=== PATIENT | male | born 1985 | race Caucasian/White ===

== ENCOUNTER 2021-08-16 17:08 | Inpatient (IN) ==
--- NOTE | 2021-08-16 17:02 | Emergency Department Note ---
Impression & Plan Intentional overdose, Suicidal overdose, Tylenol toxicity, Elevated CK, Acute respiratory failure ED Provider Note Provider: Sonu Klein MD DATE OF SERVICE: 08/16/2021 CHIEF COMPLAINT: Overdose HISTORY OF PRESENT ILLNESS: Patient is a 36-year-old gentleman presenting from [facility] after found unresponsive this afternoon. Seen around 10 AM. Patient with some depression but no history of overdose per report. EMS reports he was unresponsive and was intubated for airway protection by them without medications. Received several doses of Versed prior to arrival for postintubation sedation. Father states he found several bottles of unclear quantity including Latuda, clonazepam, tamsulosin, hydroxyzine, Seroquel, lorazepam. Parents are unable to quantify again how much medication may have been there the exact time of the ingestion. Patient on arrival is unresponsive and unable to provide significant additional history. No trauma is reported. REVIEW OF SYSTEMS: Limited secondary to patient's mental status from intubation PAST MEDICAL HISTORY: As noted above MEDICATIONS: Reviewed available medication list SOCIAL HISTORY: Has been residing at home with parents PHYSICAL EXAM: GENERAL: Patient intubated being bagged upon arrival by EMS Head: normocephalic and atraumatic EYES: No injection, discharge or icterus. Eyes are 3 mm bilaterally. Initially some disconjugate gaze noted. NECK: Trachea midline. Supple. ENT: Mucous membranes pink and moist. LUNGS: Airway patent. No retractions. Breath sounds clear HEART: Regular rate and rhythm. No chest wall tenderness ABDOMEN: Soft and non-tender, without guarding or rebound. SKIN: Acyanotic, warm, dry, without rashes EXTREMITIES: Without swelling, tenderness or deformity NEUROLOGICAL: Patient occasionally moves bilateral upper extremities but no significant withdrawal to pain. Occasional cough. No response to verbal stimuli or painful stimuli otherwise. EK bpm normal sinus rhythm. No PVC or PAC. QTc 390. No ST segment elevation noted. CONTINUOUS CARDIAC MONITORING: was ordered and showed a heart rate of 60s-80s bpm in normal sinus rhythm Differential includes Mood disorder, infection, hypoglycemia, electrolyte abnormalities, cardiac sources, intracerebral event, toxicologic, trauma, neurologic, as well as other pathologies. IMPRESSION/MEDICAL DECISION MAKING: Patient with what sounds like an intentional polypharmacy overdose. Discussed with Poison Control Center. Supportive care and abated prior to arrival. Minimal respiratory settings. Chest x-ray noted and ET tube pulled back 1 cm. Propofol for sedation at this point. Maintained on propofol drip. Tox labs were sent. EKG without significant interval abnormalities noted. CT of the head completed given his altered mental status without significant findings per radiology. Family updated at bedside. Will need psych services when through the acute medical. But will require ICU care and supportive care for the overdose until his sensorium clears. Tylenol significantly elevated and given the unclear time of ingestion Acetadote ordered. Negative salicylate level and lithium level. Alcohol level not elevated. CK mildly elevated. Given IV fluids. No evidence of LFT abnormality. Updated family. Requires admission. Did fill out a 302 form. DIAGNOSIS: Intentional overdose, acute respiratory failure, Tylenol overdose, altered mental status DISPOSITION: Hospitalist will evaluate Critical Care I have personally spent 46 minutes of critical care time in the direct manageme nt of this patient. This includes bedside care, interpretation of diagnostic studies, and testing, discussion with consultants, patient, and family members, and other required patient management activities. These 46 minutes is in excess of all separately billable procedures. 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 Required: No Beliefs That Will Affect Care: None marital status: Single Current Living Situation: Family Current Living Situation Comment: Lives with Parents Feels Safe at Home: Yes Assistive Devices: Contacts Allergies Allergies Allergy/AdvReac Type Severity Reaction Status Date / Time No Known Drug Allergies AdvReac Verified 09/06/20 11:33 Home Meds Home Medications Medication Instructions Recorded Confirmed clonazepam 1 mg tablet 1 mg PO DIRECTED 08/16/21 08/16/21 hydroxyzine pamoate 25 mg capsule 25 mg PO DIRECTED 08/16/21 08/16/21 lurasidone 40 mg tablet (Latuda) 40 mg PO DAILY 08/16/21 08/16/21 quetiapine 100 mg tablet 100 - 150 mg PO DIRECTED 08/16/21 08/16/21 tamsulosin 0.4 mg capsule 0.4 mg PO DAILY 08/16/21 08/16/21 Results & Data (ED) Vital Signs Vital Signs - 24 hr 08/16/21 17:14 08/16/21 17:20 08/16/21 17:45 Temperature 36.0 C L Temperature Source Axillary Pulse Rate 78 70 Pulse Rate [Apical] 67 Pulse Rhythm [Apical] Regular Respiratory Rate 24 20 20 Blood Pressure 135/66 Blood Pressure [Right Arm] 102/49 L Blood Pressure Mean 89 Blood Pressure Mean [Right Arm] 66 Blood Pressure Position [Right Arm] Lying Pulse Oximetry 100 100 100 Oxygen Delivery Method Mechanical Vent Mechanical Vent Fraction of Inspired Oxygen 40 40 30 SaO2/FiO2 Ratio 250 333 Sepsis Recent Fever Within 48 Hours No Sepsis New/Unexplained Change in Mental Status No Sepsis Action Taken by Nursing No Action Required End-Tidal CO2 38 End Tidal CO2 (18-54mmHg) 35 08/16/21 17:55 Temperature Temperature Source Pulse Rate Pulse Rate [Apical] Pulse Rhythm [Apical] Respiratory Rate Blood Pressure Blood Pressure [Right Arm] Blood Pressure Mean Blood Pressure Mean [Right Arm] Blood Pressure Position [Right Arm] Pulse Oximetry Oxygen Delivery Method Fraction of Inspired Oxygen 30 SaO2/FiO2 Ratio Sepsis Recent Fever Within 48 Hours Sepsis New/Unexplained Change in Mental Status Sepsis Action Taken by Nursing End-Tidal CO2 End Tidal CO2 (18-54mmHg) Laboratory Data Result diagrams: 08/16/21 17:17 08/16/21 17:17 Lab Results 08/16/21 08/16/21 08/16/21 Range/Units 17:17 17:17 17:17 WBC 9.86 (4.8-10.8) K/uL RBC 4.55 L (4.7-6.1) M/uL Hgb 13.3 L (14.0-18.0) g/dL Hct 38.3 L (42-52) % MCV 84.2 (80-100) fL MCH 29.2 (25-34) pg MCHC 34.7 (32-36) g/dL RDW Std Deviation 39.3 (36.4-46.3) fL RDW Coeff of Esthela 12.9 (11.5-14.5) % Plt Count 208 (130-400) K/uL MPV 10.3 (7.4-10.4) fL Immature Gran % (Auto) 0.4 % Neut % (Auto) 82.9 % Lymph % (Auto) 9.0 % [place] % (Auto) 7.6 % Eos % (Auto) 0.0 % Baso % (Auto) 0.1 % Neut # (Auto) 8.17 H (1.4-6.5) K/uL Lymph # (Auto) 0.89 L (1.2-3.4) K/uL [place] # (Auto) 0.75 H (0.11-0.59) K/uL Eos # (Auto) 0.00 (0-0.5) K/uL Baso # (Auto) 0.01 (0-0.2) K/uL Immature Gran # (Auto) 0.04 H (0.00-0.02) K/uL PT 12.4 H (9.0-12.0) Seconds INR 1.2 H (0.9-1.1) Sodium (136-145) mmol/L Potassium (3.5-5.1) mmol/L Chloride (98-107) mmol/L Carbon Dioxide (21-32) mmol/L Anion Gap (3-11) BUN (6-23) mg/dl Creatinine (0.6-1.4) mg/dl Est Cr Clr Drug Dosing ml/min Est GFR ( Amer) ml/min Est GFR (Non-Af Amer) ml/min BUN/Creatinine Ratio (10-20) Glucose (70-99(Fasting)) mg/dl Calcium (8.5-10.1) mg/dl Magnesium (1.7-2.4) mg/dl Total Bilirubin (0.2-1.0) mg/dl AST (13-39) U/L ALT (7-52) U/L Alkaline Phosphatase (34-104) U/L Total Creatine Kinase (30-223) U/L Troponin I High Sens 11.6 (0-20) pg/ml Total Protein (6.0-8.3) gm/dl Albumin (3.4-5.0) gm/dl Globulin (2.5-4.0) gm/dl Albumin/Globulin Ratio (0.9-2) Lipase (11-82) U/L Urine Color Urine Appearance (Clear) Urine pH (4.5-7.5) Ur Specific [place] (1.000-1.030) Urine Protein (Negative) Urine Glucose (UA) (Negative) Urine Ketones (Negative) Urine Blood (Negative) Urine Nitrite (Negative) Urine Bilirubin (Negative) Urine Urobilinogen (Negative) Ur Leukocyte Esterase (Negative) Urine WBC (Auto) (0-5) /hpf Urine RBC (Auto) (0-4) /hpf U Hyaline Cast (Auto) (0-5) /lpf U Epithel Cells (Auto) (0-5) /lpf Urine Bacteria (Auto) (Negative) Salicylates (3.0-30) mg/dl Urine Opiates Screen (Neg) Ur Methadone, Qual (Neg) Acetaminophen (10-30) ug/ml Urine Barbiturates (Neg) Ur Phencyclidine (PCP) (Neg) U Amphetamin/Meth Scrn (Neg) MDMA (Ecstasy) Screen (Neg) U Benzodiazepines Scrn (Neg) Bells (0.6-1.2) mmol/L Ur Cocaine Metabolite (Neg) U Marijuana (THC) Screen (Neg) Ethyl Alcohol mg/dL (<10.0) mg/dl SARS-CoV-2, RNA, NAAT (NEGATIVE) 08/16/21 08/16/21 08/16/21 Range/Units 17:17 17:17 17:27 WBC (4.8-10.8) K/uL RBC (4.7-6.1) M/uL Hgb (14.0-18.0) g/dL Hct (42-52) % MCV (80-100) fL MCH (25-34) pg MCHC (32-36) g/dL RDW Std Deviation (36.4-46.3) fL RDW Coeff of Esthela (11.5-14.5) % Plt Count (130-400) K/uL MPV (7.4-10.4) fL Immature Gran % (Auto) % Neut % (Auto) % Lymph % (Auto) % [place] % (Auto) % Eos % (Auto) % Baso % (Auto) % Neut # (Auto) (1.4-6.5) K/uL Lymph # (Auto) (1.2-3.4) K/uL [place] # (Auto) (0.11-0.59) K/uL Eos # (Auto) (0-0.5) K/uL Baso # (Auto) (0-0.2) K/uL Immature Gran # (Auto) (0.00-0.02) K/uL PT (9.0-12.0) Seconds INR (0.9-1.1) Sodium 134 L (136-145) mmol/L Potassium 3.5 (3.5-5.1) mmol/L Chloride 105 (98-107) mmol/L Carbon Dioxide 21 (21-32) mmol/L Anion Gap 8 (3-11) BUN 19 (6-23) mg/dl Creatinine 0.95 (0.6-1.4) mg/dl Est Cr Clr Drug Dosing 100.5 ml/min Est GFR ( Amer) 118.9 ml/min Est GFR (Non-Af Amer) 102.6 ml/min BUN/Creatinine Ratio 20.0 (10-20) Glucose 125 H (70-99(Fasting)) mg/dl Calcium 8.1 L (8.5-10.1) mg/dl Magnesium 1.9 (1.7-2.4) mg/dl Total Bilirubin 0.7 (0.2-1.0) mg/dl AST 14 (13-39) U/L ALT 14 (7-52) U/L Alkaline Phosphatase 35 (34-104) U/L Total Creatine Kinase 674 H (30-223) U/L Troponin I High Sens (0-20) pg/ml Total Protein 5.4 L (6.0-8.3) gm/dl Albumin 3.6 (3.4-5.0) gm/dl Globulin 1.8 L (2.5-4.0) gm/dl Albumin/Globulin Ratio 2.0 (0.9-2) Lipase 10 L (11-82) U/L Urine Color Yellow Urine Appearance Cloudy A (Clear) Urine pH 6.0 (4.5-7.5) Ur Specific [place] 1.024 (1.000-1.030) Urine Protein Trace H (Negative) Urine Glucose (UA) Negative (Negative) Urine Ketones 2+ H (Negative) Urine Blood Negative (Negative) Urine Nitrite Negative (Negative) Urine Bilirubin Negative (Negative) Urine Urobilinogen Negative (Negative) Ur Leukocyte Esterase Negative (Negative) Urine WBC (Auto) 1-5 (0-5) /hpf Urine RBC (Auto) 0-4 (0-4) /hpf U Hyaline Cast (Auto) 1-5 (0-5) /lpf U Epithel Cells (Auto) 10-20 H (0-5) /lpf Urine Bacteria (Auto) Negative (Negative) Salicylates < 3.0 L (3.0-30) mg/dl Urine Opiates Screen (Neg) Ur Methadone, Qual (Neg) Acetaminophen 159 H* (10-30) ug/ml Urine Barbiturates (Neg) Ur Phencyclidine (PCP) (Neg) U Amphetamin/Meth Scrn (Neg) MDMA (Ecstasy) Screen (Neg) U Benzodiazepines Scrn (Neg) Bells < 0.1 L (0.6-1.2) mmol/L Ur Cocaine Metabolite (Neg) U Marijuana (THC) Screen (Neg) Ethyl Alcohol mg/dL (<10.0) mg/dl SARS-CoV-2, RNA, NAAT (NEGATIVE) 08/16/21 08/16/21 08/16/21 Range/Units 17:27 17:29 17:30 WBC (4.8-10.8) K/uL RBC (4.7-6.1) M/uL Hgb (14.0-18.0) g/dL Hct (42-52) % MCV (80-100) fL MCH (25-34) pg MCHC (32-36) g/dL RDW Std Deviation (36.4-46.3) fL RDW Coeff of Esthela (11.5-14.5) % Plt Count (130-400) K/uL MPV (7.4-10.4) fL Immature Gran % (Auto) % Neut % (Auto) % Lymph % (Auto) % [place] % (Auto) % Eos % (Auto) % Baso % (Auto) % Neut # (Auto) (1.4-6.5) K/uL Lymph # (Auto) (1.2-3.4) K/uL [place] # (Auto) (0.11-0.59) K/uL Eos # (Auto) (0-0.5) K/uL Baso # (Auto) (0-0.2) K/uL Immature Gran # (Auto) (0.00-0.02) K/uL PT (9.0-12.0) Seconds INR (0.9-1.1) Sodium (136-145) mmol/L Potassium (3.5-5.1) mmol/L Chloride (98-107) mmol/L Carbon Dioxide (21-32) mmol/L Anion Gap (3-11) BUN (6-23) mg/dl Creatinine (0.6-1.4) mg/dl Est Cr Clr Drug Dosing ml/min Est GFR ( Amer) ml/min Est GFR (Non-Af Amer) ml/min BUN/Creatinine Ratio (10-20) Glucose (70-99(Fasting)) mg/dl Calcium (8.5-10.1) mg/dl Magnesium (1.7-2.4) mg/dl Total Bilirubin (0.2-1.0) mg/dl AST (13-39) U/L ALT (7-52) U/L Alkaline Phosphatase (34-104) U/L Total Creatine Kinase (30-223) U/L Troponin I High Sens (0-20) pg/ml Total Protein (6.0-8.3) gm/dl Albumin (3.4-5.0) gm/dl Globulin (2.5-4.0) gm/dl Albumin/Globulin Ratio (0.9-2) Lipase (11-82) U/L Urine Color Urine Appearance (Clear) Urine pH (4.5-7.5) Ur Specific [place] (1.000-1.030) Urine Protein (Negative) Urine Glucose (UA) (Negative) Urine Ketones (Negative) Urine Blood (Negative) Urine Nitrite (Negative) Urine Bilirubin (Negative) Urine Urobilinogen (Negative) Ur Leukocyte Esterase (Negative) Urine WBC (Auto) (0-5) /hpf Urine RBC (Auto) (0-4) /hpf U Hyaline Cast (Auto) (0-5) /lpf U Epithel Cells (Auto) (0-5) /lpf Urine Bacteria (Auto) (Negative) Salicylates (3.0-30) mg/dl Urine Opiates Screen Neg (Neg) Ur Methadone, Qual Neg (Neg) Acetaminophen (10-30) ug/ml Urine Barbiturates Neg (Neg) Ur Phencyclidine (PCP) Neg (Neg) U Amphetamin/Meth Scrn Neg (Neg) MDMA (Ecstasy) Screen Neg (Neg) U Benzodiazepines Scrn Pos H (Neg) Bells (0.6-1.2) mmol/L Ur Cocaine Metabolite Neg (Neg) U Marijuana (THC) Screen Neg (Neg) Ethyl Alcohol mg/dL < 10.0 (<10.0) mg/dl SARS-CoV-2, RNA, NAAT NEGATIVE (NEGATIVE) Administered Medications Enoxaparin Sodium (Enoxaparin Inj 40 Mg/0.4 Ml Syr) 40 mg SQ Q24H LACY Stop: 09/15/21 21:59 Last Admin: 08/16/21 21:17 Dose: 40 mg Documented by: [id number] Propofol (Diprivan) 1,000 mg in 100 mls @ 4.476 mls/hr IV .[id number] [facility]; Prot ocol Stop: 08/19/21 17:14 Last Titration: 08/16/21 18:42 Dose: 10 mcg/kg/min, 4.5 mls/hr Documented by: [id number] Admin: 08/16/21 17:15 Dose: 20 mcg/kg/min, 9 mls/hr Documented by: [id number] Cosigned by: [id number] Acetylcysteine 3,700 mg/ (Dextrose) 518.5 mls @ 125 mls/hr IV ONCE ONE Stop: 08/16/21 23:18 Last Admin: 08/16/21 19:45 Dose: 125 mls/hr Documented by: [id number] Ampicillin Sodium/Sulbactam Sodium 3,000 mg/ Sodium Chloride 108 mls @ 200 mls/hr IV Q6H [facility]; Protocol Stop: 08/23/21 19:42 Last Infusion: 08/16/21 21:31 Dose: 0 mls/hr Documented by: [id number] Admin: 08/16/21 20:46 Dose: 200 mls/hr Documented by: [id number] Potassium Chloride/Sodium Chloride (Normal Saline W/20 Meq Kcl) 20 meq in 1,000 mls @ 110 mls/hr IV .Q9H6M [facility]; Protocol Stop: 09/15/21 19:42 Last Admin: 08/16/21 20:46 Dose: 110 mls/hr Documented by: [id number] Propofol (Propofol Bolus From Bag) 20 mg IV Q5M PRN PRN Reason: Sedation Stop: 08/19/21 16:52 Last Admin: 08/16/21 17:15 Dose: 20 mg Documented by: [id number] Cosigned by: [id number] Discontinued Medications Acetylcysteine (Acetylcysteine Iv 21 Hr Regimen (>40kg)) 1 ea IV NOW STA; Protocol Stop: 08/16/21 18:11 Last Admin: 08/16/21 20:41 Dose: Not Given Documented by: [id number] Acetylcysteine 11,100 mg/ (Dextrose) 255.5 mls @ 200 mls/hr IV ONCE ONE Stop: 08/16/21 19:26 Last Infusion: 08/16/21 19:55 Dose: 0 mls/hr Documented by: [id number] Admin: 08/16/21 18:40 Dose: 200 mls/hr Documented by: [id number] Sodium Chloride (Nss 1000ml) 1,000 mls @ 999 mls/hr IV .Q1H1M ONE Stop: 08/16/21 19:11 Last Infusion: 08/16/21 19:56 Dose: 0 mls/hr Documented by: [id number] Admin: 08/16/21 18:47 Dose: 999 mls/hr Documented by: [id number] Miscellaneous (Stat Iv Infusion Titration Per Protocol) 1 ea N/A NOW STA Stop: 08/16/21 16:54 Last Admin: 08/16/21 19:57 Dose: Not Given Documented by: [id number] Propofol (Propofol Iv Emulsion 10 Mg/Ml 100 Ml Vial) Confirm Administered Dose 1,000 mg IV .STK-MED ONE Stop: 08/16/21 17:01 Last Admin: 08/16/21 19:58 Dose: Not Given Documented by: [id number] Imaging Data Radiologist's Impression: Chest X-Ray 08/16/21 16:53 XR chest 1V portable HISTORY: intubated COMPARISON: None. FINDINGS: The endotracheal tube terminates 1 cm from the [place]aak. Nasogastric tube is curled within the hypopharynx and terminates within the expected locati on of the proximal esophagus. There are low lung volumes. No pneumothorax. No evidence for pulmonary edema. The cardiac silhouette is top normal in size. There are patchy bibasilar densities. IMPRESSION: 1. Endotracheal tube terminates 1 cm from the isaak. This should be pulled back by approximately 1 to 2 cm. 2. Nasogastric tube is curled within the hypopharynx with the tip terminating at the proximal esophagus. This should be removed/reposition. 3. Patchy bibasilar densities may represent atelectasis or aspiration pneumonia. ACT 112: Negative or not required by law. Electronically signed by: Devan Rivers M.D. 08/16/2021 5:[address] 08/16/21 16:[address] DOSE: 537.48 mGy.cm HISTORY: Overdose. Intubation. TECHNIQUE: Multiaxial CT images of the head were performed without the use of intravenous contrast. Automated exposure control was utilized for this study. A dose lowering technique was utilized adhering to the principles of ALARA. Comparison: None. Findings: The paranasal sinuses and mastoid air cells are clear. The calvarium and skull base are intact. The ventricles and sulci are within normal limits. There is no mass, hematoma, midline shift, or acute infarct. Impression: No acute intracranial abnormality. ACT 112: Negative or not required by law. Electronically signed by: Devan Rivers M.D. 08/16/2021 5:56 PM Discharge Plan Visit Data Chief Complaint: Overdose (Intentional) Stated Complaint: OVERDOSE, SUICIDAL, INTUBATED ED Provider: Sonu Klein Discharge Problem: Intentional overdose, Suicidal overdose, Tylenol toxicity, Elevated CK, Acute respiratory failure Patient Disposition: Being Evaluated by Hospitalist Discharge Instructions Interventions: ED Discharge Assessment Last Done: 08/16/21 19:28
[~2021-08-16 17:08] MED LIST: PROPOFOL BOLUS FROM BAG IV PRN; PROPOFOL IV EMULSION 10 MG/ML 100 ML VIAL IV ONE; STAT IV Infusion **Titration per Protocol STA
[2021-08-16] MEDS: propofoL 1,000 MG/100 ML VIAL IV SCH (17:15)
[2021-08-16 17:32] LABS: Basophils # (auto) 0.01 K/uL (0-0.2); Basophils % (auto) 0.1 %; Hematocrit (blood only) 38.3 % (42-52); Hemoglobin 13.3 g/dL (14.0-18.0); Immature Granulocytes # (auto) 0.04 K/uL (0.00-0.02); Immature Granulocytes % (auto) 0.4 %; Lymphocytes # (auto) 0.89 K/uL (1.2-3.4); Mean Corpuscular Hemoglobin 29.2 pg (25-34); Mean Corpuscular Hgb Conc 34.7 g/dL (32-36); Mean Corpuscular Volume 84.2 fL (80-100); Mean Platelet Volume 10.3 fL (7.4-10.4); Monocytes # (auto) 0.75 K/uL (0.11-0.59); Monocytes % (auto) 7.6 %; Neutrophils # (auto) 8.17 K/uL (1.4-6.5); Neutrophils % (auto) 82.9 %; Platelet Count 208 K/uL (130-400); RDW Coefficient of Variation 12.9 % (11.5-14.5); RDW Standard Deviation 39.3 fL (36.4-46.3); Red Blood Count 4.55 M/uL (4.7-6.1); White Blood Count 9.86 K/uL (4.8-10.8)
[2021-08-16 17:44] LABS: Appearance Urine Cloudy (Clear); Bacteria Urine Automated Negative (Negative); Bilirubin Urine Negative (Negative); Blood Urine Negative (Negative); Color Urine Yellow; Glucose Urine UA Negative (Negative); Ketones Urine 2+ (Negative); Leukocyte Esterase Urine Negative (Negative); Nitrite Urine Negative (Negative); Protein Urine Trace (Negative); RBC Urine Automated 0-4 /hpf (0-4); Specific Gravity Urine 1.024 (1.000-1.030); Urobilinogen Urine Negative (Negative)
[2021-08-16 17:45] LABS: INR 1.2 (0.9-1.1); Prothrombin Time 12.4 Seconds (9.0-12.0)
--- NOTE | 2021-08-16 17:55 | XRay Report ---
XR chest 1V portable HISTORY: intubated COMPARISON: None. FINDINGS: The endotracheal tube terminates 1 cm from the [place]aak. Nasogastric tube is curled within th e hypopharynx and terminates within the expected location of the proximal esophagus. There are low marina ng volumes. No pneumothorax. No evidence for pulmonary edema. The cardiac silhouette is top normal in size. There are patchy bibasilar densities. IMPRESSION: 1. Endotracheal tube terminates 1 cm from the isaak. This should be pulled back by approximately 1 t o 2 cm. 2. Nasogastric tube is curled within the hypopharynx with the tip terminating at the proximal esophag us. This should be removed/reposition. 3. Patchy bibasilar densities may represent atelectasis or aspiration pneumonia. ACT 112: Negative or not required by law. Electronically signed by: Devan Rivers M.D. 08/16/2021 5:54 PM
--- NOTE | 2021-08-16 17:58 | CT Scan Report ---
HEAD CT NONCONTRAST CT DOSE: 537.48 mGy.cm HISTORY: Overdose. Intubation. TECHNIQUE: Multiaxial CT images of the head were performed without the use of intravenous contrast. A utomated exposure control was utilized for this study. A dose lowering technique was utilized adheri ng to the principles of ALARA. Comparison: None. Findings: The paranasal sinuses and mastoid air cells are clear. The calvarium and skull base are int act. The ventricles and sulci are within normal limits. There is no mass, hematoma, midline shift, or acute infarct. Impression: No acute intracranial abnormality. ACT 112: Negative or not required by law. Electronically signed by: Devan Rivers M.D. 08/16/2021 5:56 PM
[2021-08-16 18:09] LABS: Acetaminophen 159 ug/ml (10-30); Albumin Level 3.6 gm/dl (3.4-5.0); Bilirubin,Total 0.7 mg/dl (0.2-1.0); Calcium 8.1 mg/dl (8.5-10.1); Creatinine Clr Calc Pharmacy 100.5 ml/min; Est GFR (African American) 118.9 ml/min; Est GFR (Non-African American) 102.6 ml/min; Globulin 1.8 gm/dl (2.5-4.0); Lithium < 0.1 mmol/L (0.6-1.2); Magnesium 1.9 mg/dl (1.7-2.4); Potassium 3.5 mmol/L (3.5-5.1); Salicylate < 3.0 mg/dl (3.0-30); Total Protein 5.4 gm/dl (6.0-8.3)
[2021-08-16] MEDS ORDERED: AcetylCYSTEINE IV 21 HR REGIMEN (>40KG) IV STA (18:10)
[2021-08-16] MEDS ORDERED: ACETYLCYSTEINE IV ONE ×3 (18:10→23:10)
[2021-08-16] MEDS ORDERED: DEXTROSE 5% IV ONE ×3 (18:10→23:10)
[2021-08-16] MEDS ORDERED: SODIUM CHLORIDE 0.9% 1000ML 1,000 ML IV ONE (18:11)
[2021-08-16 18:22] LABS: Amphetamines+Metham, Urine Neg (Neg); Barbiturates, Urine Neg (Neg); Cocaine, Urine Neg (Neg); MDMA (Ecstacy), Urine Neg (Neg); Methadone, Urine Neg (Neg); Opiate, Urine Neg (Neg); Phencyclidine, Urine Neg (Neg)
[2021-08-16 19:24] LABS: Benzodiazepine, Urine Pos (Neg)
--- NOTE | 2021-08-16 19:30 | History & Physical Report ---
Date of Service August 16, 2021 Assessment & Plan (1) Admitted to intensive care unit: (2) Acute respiratory failure: (3) On mechanically assisted ventilation: (4) Intentional overdose: (5) Suicidal overdose: (6) Tylenol toxicity: (7) Elevated CK: Plan: This is a 36-year-old male who has significant past medical history of depression, anxiety and anuja who presents to ED after sustaining what appears to be an intentional overdose on multiple prescription medications prior to arrival. Patient is currently sedated and mechanical intubated from suspected polypharmacy overdose and active suicide attempt. Unknown exact quantity of medications ingested and specifics; however pills noted at bedside were Latuda, clonazepam, tamsulosin, hydroxyzine, Seroquel and lorazepam. Initial urine drug tox negative. Salicylate level WNL, acetaminophen level elevated at 159. Benzodiazepine currently pending Admitted to intensive care unit Acute respiratory failure on mechanical assisted ventilation secondary to overdose Polypharmacy overdose Tylenol toxicity Elevated CK Possible Aspiration PNA Admit to ICU Consult mis specialist Discussed case with poison control * Recommends initiating N-acetylcysteine 21-hour protocol at 1, 4-hour and a 16- hour * Recommend repeating LFT, coags and Tylenol level 12 hours into the 16-hour bag * Poison control will call to follow-up * Further recommended EKGs every 6 hours due to likely ingestion of antips ychotics * If EKG reveals QRS greater than 120 treat with sodium bicarb; if QTC greater than 500 MS recommend treating with magnesium sulfate 2 g IV, recommend keeping mag greater than 2 and K > 4.5 IVF + KCL 20meq suicide, fall and asp precautions Psych consulted; however eval will be depending when patient extubated IV Unasyn for possible aspiration PNA NPO obtain ABG DVT ppx: SQ Lovenox Dispo: ICU, pt will need psych evaluation and likely inpt tx FULL CODE PCP: Yanely Navarrete MD Pt was seen and examined in collaboration with Dr. Posey, please see addendum Mother and Father present at bedside and agree with above History of Present Illness Chief Complaint: Overdose on multiple pills prior to arrival. Primary Care Provider: Yanely Navarrete MD This is a 36-year-old male who has significant past medical history of depression, anxiety and anuja who presents to ED after sustaining what appears to be an intentional overdose on multiple prescription medications prior to arrival. Patient's mother and father are at bedside and provides most of history. History also obtained from prehospital personnel and ED provider. Patient has been living with his parents for the past 2 years, since COVID hit. They states he has suffered with depression and anxiety for several years dating back to when he lost his job back in [place] about 6 years ago. About 10 days ago he recently moved out to [place] to start a summer job. He called his parents stating that he was not doing well from a depression standpoint and therefore they went out to [place] to see him. Apparently he was hospitalized at [facility] for 2 days as he admitted himself due to worsening depression. According to report patient signed him out AMA and family brought him back here. This morning patient was scheduled to see a psychiatrist. His father noted him to be sleeping. He states, "he never sleeps so I did let him sleep for a while, but I now know that was the wrong decision." Somewhere between 10 AM and 12 PM patient is thought to have taken multiple prescription prescription medications as they were found at bedside. It is unclear quantity and specifics but the bottles noted were Latuda, clonazepam, tamsulosin, hydroxyzine, Seroquel and lorazepam. Patient was unresponsive and was intubated in the field. In ED he remained hemodynamically stable, sedated and on mechanical ventilation. Drug tox screen was negative, salicylates less than 3.0, acetaminophen high at 159. His benzodiazepine screen is still pending. Poison control was contacted. Allergies Allergy/AdvReac Type Severity Reaction Status Date / Time No Known Drug Allergies AdvReac Verified 09/06/20 11:33 Home Medications Medication Instructions Recorded Confirmed Type clonazepam 1 mg tablet 1 mg PO DIRECTED 08/16/21 08/16/21 History hydroxyzine pamoate 25 mg capsule 25 mg PO DIRECTED 08/16/21 08/16/21 History lurasidone 40 mg tablet (Latuda) 40 mg PO DAILY 08/16/21 08/16/21 History quetiapine 100 mg tablet 100 - 150 mg PO DIRECTED 08/16/21 08/16/21 History tamsulosin 0.4 mg capsule 0.4 mg PO DAILY 08/16/21 08/16/21 History Past Med/Surg History Medical History (Updated 08/16/21 @ 19:17 by Susan Roberto PA-C) Anxiety Depression Frequent urination Tingling of right upper extremity when sleeping to have MRI Whiplash 10/2019 fell from ladder Surgical History History of hernia surgery Family History (Updated 08/16/21 @ 19:12 by Susan Roberto PA-C) Sister Depression Social History (Updated 08/16/21 @ 19:13 by Susan Roberto PA-C) Smoking Status: Never smoker Hx Alcohol Use: Yes Alcohol Intake Frequency: Monthly or Less Alcohol Intake Frequency Comment: occassional per family Hx Substance Use: No Preferred Language: Qatari Communication Ability: Unable Ships Equipment Engineer Required: No Beliefs That Will Affect Care: None marital status: Single Current Living Situation: Family Current Living Situation Comment: Lives with Parents Feels Safe at Home: Yes Assistive Devices: Contacts Review of Systems Review of Systems: All systems reviewed & are unremarkable except as noted in HPI & below Physical Exam Physical Exam: Constitutional: WD/WN, vitals as above, NAD, lying in bed, unresponsive, intubated Head: Normocephalic, Atraumatic Eyes: PERRL, conjunctivae normal, anicteric sclerae ENMT: external ear and nose normal, +ET Tube Neck: trachea midline, normal visual inspection Respiratory: normal respiratory effort, B/L rhonchi noted R> L, + Intubated with mechanical ventilation Cardiovascular: bradycardiac rate, regular rhythm, no edema Vessels: no JVD or carotid bruit Chest: normal inspection of chest Abdomen: normal bowel sounds, soft, nontender, no hepatosplenomegaly Musculoskeletal: no cyanosis or clubbing, unable to assess given unresponsive Skin: no rashes, warm and dry normal turgor Neurologic: unable to assess due to unresponsive Psychiatric: unable to assess due to unresponsive : +reynoso cath with yellow urine Results & Data Results & Data ([facility]) Vital Signs (Past 12 Hours) Vital Signs Temp Pulse Pulse Resp BP BP Pulse Ox 08/16/21 19:00 55 L 20 94/54 L 99 08/16/21 18:30 61 20 86/44 L 100 08/16/21 17:45 67 20 102/49 L 100 05/26/22 17:20 36.0 C L 70 20 135/66 100 08/16/21 17:14 78 24 100 Diagnostic Findings Chest X-Ray 08/16/21 16:53 XR chest 1V portable HISTORY: intubated COMPARISON: None. FINDINGS: The endotracheal tube terminates 1 cm from the isaak. Nasogastric tube is curled within the hypopharynx and terminates within the expected location of the proximal esophagus. There are low lung volumes. No pneumothorax. No evidence for pulmonary edema. The cardiac silhouette is top normal in size. There are patchy bibasilar densities. IMPRESSION: 1. Endotracheal tube terminates 1 cm from the isaak. This should be pulled back by approximately 1 to 2 cm. 2. Nasogastric tube is curled within the hypopharynx with the tip terminating at the proximal esophagus. This should be removed/reposition. 3. Patchy bibasilar densities may represent atelectasis or aspiration pneumonia. ACT 112: Negative or not required by law. Electronically signed by: Devan Rivers M.D. 08/16/2021 5:[address] 08/16/21 16:[address] DOSE: 537.48 mGy.cm HISTORY: Overdose. Intubation. TECHNIQUE: Multiaxial CT images of the head were performed without the use of intravenous contrast. Automated exposure control was utilized for this study. A dose lowering technique was utilized adhering to the principles of ALARA. Comparison: None. Findings: The paranasal sinuses and mastoid air cells are clear. The calvarium and skull base are intact. The ventricles and sulci are within normal limits. There is no mass, hematoma, midline shift, or acute infarct. Impression: No acute intracranial abnormality. ACT 112: Negative or not required by law. Electronically signed by: Devan Rivers M.D. 08/16/2021 5:56 PM Medications Administered Medication List Propofol (Diprivan) 1,000 mg in 100 mls @ 8.952 mls/hr IV .[id number] [facility]; Protocol Stop: 08/19/21 17:14 Last Titration: 08/16/21 18:42 Dose: 10 mcg/kg/min, 4.5 mls/hr Documented by: [id number] Admin: 08/16/21 17:15 Dose: 20 mcg/kg/min, 9 mls/hr Documented by: [id number] Cosigned by: [id number] Acetylcysteine 11,100 mg/ (Dextrose) 255.5 mls @ 200 mls/hr IV ONCE ONE Stop: 08/16/21 19:26 Last Admin: 08/16/21 18:40 Dose: 200 mls/hr Documented by: [id number] Propofol (Propofol Bolus From Bag) 20 mg IV Q5M PRN PRN Reason: Sedation Stop: 08/19/21 16:52 Last Admin: 08/16/21 17:15 Dose: 20 mg Documented by: [id number] Cosigned by: [id number] Discontinued Medications Sodium Chloride (Nss 1000ml) 1,000 mls @ 999 mls/hr IV .Q1H1M ONE Stop: 08/16/21 19:11 Last Admin: 08/16/21 18:47 Dose: 999 mls/hr Documented by: [id number] ECG Rate (beats per minute): 81 Rhythm: normal sinus COVID-19 Results Results COVID-19 Adm Lab Results: RBC 4.55 M/uL (4.7-6.1) L 08/16/21 WBC 9.86 K/uL (4.8-10.8) 08/16/21 Hgb 13.3 g/dL (14.0-18.0) L 08/16/21 Hct 38.3 % (42-52) L 08/16/21 Plt Count 208 K/uL (130-400) 08/16/21 Neutrophils (%) (Auto) 82.9 % 08/16/21 Lymphocytes (%) (Auto) 9.0 % 08/16/21 Monocytes # (Auto) 0.75 K/uL (0.11-0.59) H 08/16/21 Eosinophils # (Auto) 0.00 K/uL (0-0.5) 08/16/21 Immature Granulocyte % (Auto) 0.4 % 08/16/21 Neutrophils # (Auto) 8.17 K/uL (1.4-6.5) H 08/16/21 Lymphocytes # (Auto) 0.89 K/uL (1.2-3.4) L 08/16/21 Monocytes # (Auto) 0.75 K/uL (0.11-0.59) H 08/16/21 Eosinophils # (Auto) 0.00 K/uL (0-0.5) 08/16/21 Basophils # (Auto) 0.01 K/uL (0-0.2) 08/16/21 Immature Granulocyte # (Auto) 0.04 K/uL (0.00-0.02) H 08/16/21 Na 134 mmol/L (136-145) L 08/16/21 K 3.5 mmol/L (3.5-5.1) 08/16/21 Cl 105 mmol/L (98-107) 08/16/21 CO2 21 mmol/L (21-32) 08/16/21 Anion Gap 8 (3-11) 08/16/21 BUN 19 mg/dl (6-23) 08/16/21 Creatinine 0.95 mg/dl (0.6-1.4) 08/16/21 BUN/Creatinine Ratio 20.0 (10-20) 08/16/21 Glucose Level 125 mg/dl (70-99(Fasting)) H 08/16/21 Ca 8.1 mg/dl (8.5-10.1) L 08/16/21 Total Bilirubin 0.7 mg/dl (0.2-1.0) 08/16/21 AST/SGOT 14 U/L (13-39) 08/16/21 ALT/SGPT 14 U/L (7-52) 08/16/21 Alkaline Phosphatase 35 U/L (34-104) 08/16/21 Total Protein 5.4 gm/dl (6.0-8.3) L 08/16/21 Albumin 3.6 gm/dl (3.4-5.0) 08/16/21 Globulin 1.8 gm/dl (2.5-4.0) L 08/16/21 Albumin/Globulin Ratio 2.0 (0.9-2) 08/16/21 Total CK 674 U/L (30-223) H 08/16/21 INR 1.2 (0.9-1.1) H 08/16/21 SARS-CoV-2, RNA, NAAT NEGATIVE (NEGATIVE) 08/16/21 Chest X-Ray 08/16/21 Code Status & VTE Plan Code Status FULL CODE VTE Prophylaxis Plan VTE Prophylaxis will be ordered: Yes Supervising Physician Co-Signing Physician Notes Patient is a 36-year-old male with history of depression, anxiety, anuja and other medical problems presents with intentional drug overdose on multiple prescription medications. Patient currently intubated and sedated. Most of the history is obtained from ER physician, staff, patient's parents at bedside. Patient has been having ongoing depression, anxiety issues for the past several years and has lost his job about 2 years ago. Patient has been living with his parents for about 2 years but recently moved to [place] for the summer job. Patient's parents informed that he has been been texting multiple messages that he has not been able to manage well at [place]. Patient was hospitalized 2 days ago for worsening depression and signed out AGAINST MEDICAL ADVICE. Family noted this morning that patient had multiple prescription bottles which were empty and some noted in his mouth as well. No bowel or bladder incontinence, seizure activity noted. Please review HPI for complete details of presentation. Poison control was contacted while patient is in ED. On exam patient is well- built and nourished, no apparent distress, intubated and sedated, normocephalic atraumatic, normal eye inspection, normal breath sounds, bilateral rhonchi, bradycardic, S1-S2, no murmur, no pedal edema, abdomen soft, not tender, complete neurological exam could not be performed. Blood work suggestive of WBC 9.86, hemoglobin 13.3, platelets 208K, INR 1.2, blood gas showed pH 7.32, PCO2 38, PO2 138, bicarbonate 19, sodium 134, potassium 3.5, creatinine 0.95, glucose 125, calcium 8.9, magnesium 1.9, normal LFTs, CK 674, urinalysis showed positive for ketones, toxicology screen showed acetaminophen 159, positive for benzodiazepines, negative for salicylate, negative alcohol level, complete drug screen pending. CT head showed no acute intracranial abnormality. Chest x-ray showed findings suggestive of possible aspiration. EKG showed normal sinus rhythm, nonspecific T wave abnormality, QTC 390. Patient is admitted for management of drug overdose, suicidal attempt, possible aspiration pneumonia. Patient was intubated by EMS prior to arrival to ED. Was found to be hypotensive while in ED. Patient is started on N-acetylcysteine as recommended by poison control. Will monitor LFTs, coags, Tylenol level as recommended by poison control. We will also monitor EKG every 6 hours. Aspiration, fall precautions. IV fluids. Empirically started on IV Unasyn. Parimutuel Ticket Cashier consult. Vent management as per ICU team. We will consult psychiatry when appropriate. I personally reviewed the record. Patient is interviewed and examined at bedside. Patient's care is coordinated with Susan Roberto PA-C. Please refer to the documentation above for details of patient's presentation and for discussion of other issues.
[2021-08-16] MEDS ORDERED: ICU PROTOCOL FOR HYPERGLYCEMIA PRN (19:43)
[2021-08-16 19:51] LABS: iSTAT Allen Test Pass; iSTAT Art Bld Gas pCO2 Correct 37 mmHg (35-46); iSTAT Art Bld Gas pH Corrected 7.324 (7.35-7.45); iSTAT Arterial Blood Gas HCO3 19 meg/L (19-24); iSTAT Arterial Blood Gas pCO2 38 mmHg (35-46); iSTAT Arterial Blood Gas pH 7.32 (7.35-7.45); iSTAT Arterial Blood Gas pO2 138 mmHg (80-95); iSTAT Arterial Blood Gas pO2 C 135; iSTAT Carbon Dioxide 20 mmol/L (24-31); iSTAT FiO2 30 %; iSTAT Hematocrit 35 % (42-52); iSTAT Hemoglobin 11.9 g/dl (14.0-18.0); iSTAT Potassium 3.4 mmol/L (3.3-5.0); iSTAT Site R Radial; iSTAT Sodium 140 mmol/L (135-144)
--- NOTE | 2021-08-16 20:21 | Critical Care Consultation ---
Date of Consultation August 16, 2021 Assessment & Plan (1) Admitted to intensive care unit: Reason Critically Ill: 36-year-old male with history of anxiety depression presenting with active suicidal ideation with polysubstance intentional overdose attempt. Patient intubated in the field. He is requiring close monitoring given polysubstance overdose as well as need for ongoing ventilatory support. NEURO/PSYCH - * CAM ICU: Unable to assess * Sedation: Propofol gtt * Pain: Fentanyl PRN * Altered mental status: * Likely 2/2 polypharmacy - reported pill bottles at the scene: Latuda, Clonazepam, Hydroxyzine, Seroquel, and Lorazepam. Also w/ elevated APAP level. * CT Head/Brain w/o acute findings. * Will continue to monitor mental status as substances have a change to wear off. * Requiring sedation for intubation despite being intubated w/o RSR Rx in the field. * Active Suicide Attempt: * Unknown if prior attempts in the past. * Per chart review, patient had recently been admitted this week on a 201 waver in [place], but signed himself out AMA and came home to [place] w/ his parents. * Was found down w/ several pill bottles around him. * Concerning given escalation to active suicide attempt despite recent inpatient stay. * Will make patient a 1:1 with suicide precautions per hospital protocol when appropriate. Intubated and sedated for now. * Consult psych for inpatient placement when appropriate. * Would recommend 302 statement be filled out and on the chart and might even advocate for petitioned 302 on this patient given that he recently left [place] during an inpatient stay of ~48hrs to only to go home and overdose on multiple substances. * Please see Tox TOX - * Polysubstance Overdose: * Bottles found w/ patient and known prescriptions: Latuda, Clonazepam, Hydroxyzine, Seroquel, and Lorazepam. * Initial EKG w/o widening of QTc/QRS. Will continue to monitor w/ EKG q6h. Mag/HCO3 etc. in the events of any changes. * APAP level elevated. APAP overdose assumed as well. Loading dose of NAC started as well as 21 hr protocol for unknown time of ingestion. INR slightly elevated on initial labs. Will repeat LFTs/INR/PRP at 2300 and again w/ AM labs which would be ~12 hrs after initiation of NAC gtt. * Intubated in the field 2/2 unresponsiveness. Now requiring sedation in the form of Propofol. * CT head w/o acute findings. * Mother called in and reported ?? ibuprofen ingestion as well. Will trend PRP. * Poison control contacted and recommendations currently followed. CARDIAC/VASCULAR - * Elevated CPK: * Continuing w/ ongoing IVF for now. * Will trend. * EKG: NSR @ 81bpm. No ST/T-wave changes. QTc 390/QRS 102. * Monitor on telemetry. RESPIRATORY - * Respiratory failure requiring intubation for airway protection: * Will trend ABGs * Titrate down vent settings as able. GI/NUTRITION - * OGT in place * Prophylaxis: Protonix RENAL/LYTES - * No significant electrolyte derangements. * Monitor lytes. Replace appropriately. * IVF: NSS w/ 20 KCl @ 100 mL/hr - * Carter in place - Strict I&Os. ENDO - * No h/o DM or Thyroid Dz * BSGs per unit protocol. ISS --> gtt per unit policy. HEME - * Stable H&H ID - * Covered w/ Unasyn for ?? aspiration. * Will repeat CXR in AM to evaluate for any developing infiltrates. Can likely be de-escalated quickly. LINES/IV ACCESS - * PIVs x2 * ETT * OGT * Carter DVT PROPHYLAXIS - * Lovenox * SCDs I have personally spent 45 minutes of critical care time in the direct management of this patient. This is a life/limb threatening event. This includes time spent evaluating patient, direct bedside care, chart review, placing orders, interpretation of diagnostic studies, discussion with consultants, patient, and family members, as well as other required patient management activities. This time is exclusive of all separately billable procedures, and teaching time and separate from and in addition to any other critical care service time. Thank you for allowing us to participate in the care of this patient. Please refer to my attending physician's documentation for any further recommendations. (2) Polysubstance overdose: (3) Acute respiratory failure: (4) AMS (altered mental status): (5) Elevated CK: (6) Tylenol toxicity: (7) Suicidal overdose: (8) Intentional overdose: (9) Anxiety: (10) Depression: History of Present Illness Attending Physician: Acosta Posey MD History of Present Illness Patient arrived in the ICU intubated and sedated after apparent polysubstance overdose requiring intubation in the field. My review of history is from colleagues documentation. Patient unable to contribute to HPI secondary to intubation and sedation Allergies Allergy/AdvReac Type Severity Reaction Status Date / Time No Known Drug Allergies AdvReac Verified 09/06/20 11:33 Home Medications Medication Instructions Recorded Confirmed Type clonazepam 1 mg tablet 1 mg PO DIRECTED 08/16/21 08/16/21 History hydroxyzine pamoate 25 mg capsule 25 mg PO DIRECTED 08/16/21 08/16/21 History lurasidone 40 mg tablet (Latuda) 40 mg PO DAILY 08/16/21 08/16/21 History quetiapine 100 mg tablet 100 - 150 mg PO DIRECTED 08/16/21 08/16/21 History tamsulosin 0.4 mg capsule 0.4 mg PO DAILY 08/16/21 08/16/21 History Patient History Medical History Anxiety Depression Frequent urination Tingling of right upper extremity when sleeping to have MRI Whiplash 10/2019 fell from ladder Surgical History History of hernia surgery Family History Sister Depression Social History Smoking Status: Never smoker Hx Alcohol Use: Yes Alcohol Intake Frequency: Monthly or Less Alcohol Intake Frequency Comment: occassional per family Hx Substance Use: No Preferred Language: Maori Communication Ability: Unable Communication Ability Comment: unable to respond Laboratory Chemist Required: No Beliefs That Will Affect Care: None marital status: Single Current Living Situation: Family Current Living Situation Comment: unable to respond Feels Safe at Home: Yes Assistive Devices: Contacts Assistive Devices Comment: unable to respond Review of Systems Review of Systems: Unobtainable due to cognitive status and Unobtainable due to endotracheal tube Physical Exam Physical Exam: VITAL SIGNS - Vital signs and nursing notes were reviewed. GENERAL - 36-year-old male appearing his stated age who is in no acute distress. Intubated and sedated. SKIN - Without rashes. HEAD - NC/AT. EYES - PERRL with EOMI bilaterally. Sclera anicteric. EARS - No deformities of external structures noted on gross examination bilaterally. NOSE - Midline and without cyanosis. No epistaxis or purulent drainage noted. MOUTH/OROPHARYNX - ETT/OGT in place. Without perioral cyanosis. NECK - Supple to palpation. No nuchal rigidity. LUNGS - Chest wall symmetric without accessory muscle use, intercostals retractions, or central cyanosis. Normal vesicular breath sounds CTA B/L. No wheezes, rales, or rhonchi appreciated. CARDIAC - RRR with S1/S2. No murmur, rubs, or gallops appreciated. ABDOMEN - Abdominal contour flat without pulsations or visible masses. BS normoactive all four quadrants. No tenderness, palpable masses, hepatosplenomegaly, or ascites noted. EXTREMITIES - No clubbing or peripheral cyanosis. No pretibial edema present. +3/5 radial and dorsalis pedis pulses palpated throughout. NEUROLOGIC - No focal neurological deficits noted. Unable to fully assess otherwise 2/2 sedation/intubation. Results & Data Results & Data ([facility]) Vital Signs (Past 12 Hours) Vital Signs Temp Pulse Pulse Resp BP BP Pulse Ox 08/16/21 20:10 67 20 100 08/16/21 19:00 55 L 20 94/54 L 99 08/16/21 18:30 61 20 86/44 L 100 08/16/21 17:45 67 20 102/49 L 100 08/16/21 17:20 36.0 C L 70 20 135/66 100 08/16/21 17:14 78 24 100 Coding Level of Care Code Critical Care 1st 30-74 mins Diagnoses Admitted to intensive care unit Z78.9 Polysubstance overdose T50.901A Acute respiratory failure J96.00 AMS (altered mental status) R41.82 Elevated CK R74.8 Tylenol toxicity T39.1X1A Suicidal overdose T50.902A Intentional overdose T50.902A Anxiety F41.9 Depression F32.A Time Spent (min) 45
[2021-08-16] MEDS: NSS + 20MEQ KCL 20 MEQ/1,000 ML BAG IV SCH (20:46)
[2021-08-16] MEDS: AMPICILLIN/SULBACTAM SOD 3,000 MG in 0.9 % SODIUM CHLORIDE 100 ML IV SCH (20:46)
[2021-08-16] MEDS: ENOXAPARIN INJ 40 MG/0.4 ML SYR SQ SCH (21:17)
[2021-08-16 22:56] LABS: iSTAT Allen Test Pass; iSTAT Art Bld Gas pCO2 Correct 28 mmHg (35-46); iSTAT Art Bld Gas pH Corrected 7.453 (7.35-7.45); iSTAT Arterial Blood Gas HCO3 20 meg/L (19-24); iSTAT Arterial Blood Gas pCO2 29 mmHg (35-46); iSTAT Arterial Blood Gas pH 7.45 (7.35-7.45); iSTAT Arterial Blood Gas pO2 135 mmHg (80-95); iSTAT Arterial Blood Gas pO2 C 133; iSTAT Carbon Dioxide 21 mmol/L (24-31); iSTAT FiO2 30 %; iSTAT Hematocrit 34 % (42-52); iSTAT Hemoglobin 11.6 g/dl (14.0-18.0); iSTAT Site R Radial; iSTAT Sodium 139 mmol/L (135-144)
[2021-08-16] MEDS: MAGNESIUM SULFATE / D5W 1 GM/100 ML BAG IV SCH (23:37)
[2021-08-16 23:41] LABS: INR 1.2 (0.9-1.1); Prothrombin Time 12.9 Seconds (9.0-12.0)
[2021-08-16 23:50] LABS: Albumin Level 3.3 gm/dl (3.4-5.0); BUN Creatinine Ratio 17.1 (10-20); Bilirubin Direct 0.2 mg/dl (0-0.2); Bilirubin,Total 0.9 mg/dl (0.2-1.0); Calcium 7.8 mg/dl (8.5-10.1); Creatinine Clr Calc Pharmacy 116.4 ml/min; Est GFR (African American) 131.9 ml/min; Est GFR (Non-African American) 113.8 ml/min; Magnesium 1.9 mg/dl (1.7-2.4); Phosphorus 2.1 mg/dl (2.5-4.9)
[2021-08-16 23:58] LABS: Troponin I High Sensitivity 19.5 pg/ml (0-20)
[2021-08-17] MEDS ORDERED: POTASSIUM PHOS 3 MMOL/1 ML INFUSION IV STA (00:57)
[2021-08-17] MEDS: MAGNESIUM SULFATE / D5W 1 GM/100 ML BAG IV SCH (01:19)
[2021-08-17] MEDS: POTASSIUM CHLORIDE / WTR 10 MEQ/100 ML PLCT IV SCH ×3 (01:19→04:13)
[2021-08-17] MEDS: AMPICILLIN/SULBACTAM SOD 3,000 MG in 0.9 % SODIUM CHLORIDE 100 ML IV SCH ×4 (01:21→20:57)
[2021-08-17] MEDS ORDERED: POTASSIUM PHOSPHATE 21 MMOL in SODIUM CHLORIDE 0.9% 500 ML IV ONE (01:30)
[2021-08-17] MEDS: propofoL 1,000 MG/100 ML VIAL IV SCH ×2 (02:38→09:40)
[2021-08-17 04:41] LABS: iSTAT Allen Test Pass; iSTAT Art Bld Gas pCO2 Correct 34 mmHg (35-46); iSTAT Art Bld Gas pH Corrected 7.413 (7.35-7.45); iSTAT Arterial Blood Gas HCO3 22 meg/L (19-24); iSTAT Arterial Blood Gas pCO2 34 mmHg (35-46); iSTAT Arterial Blood Gas pH 7.41 (7.35-7.45); iSTAT Arterial Blood Gas pO2 137 mmHg (80-95); iSTAT Arterial Blood Gas pO2 C 136; iSTAT Carbon Dioxide 23 mmol/L (24-31); iSTAT FiO2 30 %; iSTAT Hematocrit 36 % (42-52); iSTAT Hemoglobin 12.2 g/dl (14.0-18.0); iSTAT Site R Radial; iSTAT Sodium 141 mmol/L (135-144)
[2021-08-17] MEDS: NSS + 20MEQ KCL 20 MEQ/1,000 ML BAG IV SCH (04:54)
[2021-08-17 05:37] LABS: INR 1.2 (0.9-1.1); Prothrombin Time 12.5 Seconds (9.0-12.0)
[2021-08-17 05:45] LABS: Basophils # (auto) 0.02 K/uL (0-0.2); Basophils % (auto) 0.3 %; Hematocrit (blood only) 39.3 % (42-52); Hemoglobin 13.3 g/dL (14.0-18.0); Immature Granulocytes # (auto) 0.02 K/uL (0.00-0.02); Immature Granulocytes % (auto) 0.3 %; Lymphocytes # (auto) 2.29 K/uL (1.2-3.4); Lymphocytes % (auto) 29.5 %; Mean Corpuscular Hemoglobin 28.5 pg (25-34); Mean Corpuscular Hgb Conc 33.8 g/dL (32-36); Mean Corpuscular Volume 84.2 fL (80-100); Mean Platelet Volume 10.1 fL (7.4-10.4); Monocytes # (auto) 0.66 K/uL (0.11-0.59); Monocytes % (auto) 8.5 %; Neutrophils # (auto) 4.77 K/uL (1.4-6.5); Neutrophils % (auto) 61.4 %; Platelet Count 221 K/uL (130-400); RDW Coefficient of Variation 13.3 % (11.5-14.5); RDW Standard Deviation 40.5 fL (36.4-46.3); Red Blood Count 4.67 M/uL (4.7-6.1); White Blood Count 7.76 K/uL (4.8-10.8)
[2021-08-17 05:56] LABS: Troponin I High Sensitivity 30.6 pg/ml (0-20)
[2021-08-17 06:05] LABS: Albumin Level 3.4 gm/dl (3.4-5.0); BUN Creatinine Ratio 10.4 (10-20); Bilirubin Direct 0.1 mg/dl (0-0.2); Bilirubin,Total 0.5 mg/dl (0.2-1.0); Calcium 7.8 mg/dl (8.5-10.1); Creatinine Clr Calc Pharmacy 99.5 ml/min; Est GFR (African American) 117.4 ml/min; Est GFR (Non-African American) 101.3 ml/min; Magnesium 2.5 mg/dl (1.7-2.4); Phosphorus 3.3 mg/dl (2.5-4.9); Potassium 4.2 mmol/L (3.5-5.1); Total Protein 5.2 gm/dl (6.0-8.3)
--- NOTE | 2021-08-17 07:58 | XRay Report ---
XR chest 1V portable CLINICAL HISTORY: Follow-up patchy bibasilar densities. COMPARISON STUDY: 08/16/2021 TECHNIQUE: 1 view of the chest FINDINGS: Single frontal view of the chest demonstrates the cardiomediastinal silhouette to be within normal li mits. Tubes and catheters are now in anatomic position. Compared to previous examination, there is in creased expansion of lungs with resolution of bibasilar atelectasis. No confluent alveolar opacities are identified. There is no evidence for pleural effusion. There is no evidence for vascular congesti on. There is no acute osseous pathology. IMPRESSION: 1. Increased expansion of lungs with resolution of bibasilar atelectasis. 2. No acute chest disease. 3. Tubes and catheters in anatomic position. ACT 112: Negative or not required by law. Electronically signed by: Eloy Munguia M.D. 08/17/2021 7:57 AM
--- NOTE | 2021-08-17 09:30 | Critical Care Progress Note ---
Date of Service August 17, 2021 Assessment & Plan (1) Admitted to intensive care unit: Plan: Reason Critically Ill: 36-year-old male with history of anxiety depression presenting with active suicidal ideation with polysubstance intentional overdose attempt. Patient intubated in the field. He is requiring close monitoring given polysubstance overdose as well as need for ongoing ventilatory support. NEURO/PSYCH - * CAM ICU: Unable to assess * Sedation: Propofol gtt on hold * Pain: Fentanyl PRN * Altered mental status: * Likely 2/2 polypharmacy - reported pill bottles at the scene: Latuda, Clonazepam, Hydroxyzine, Seroquel, and Lorazepam. Also w/ elevated APAP level. * CT Head/Brain w/o acute findings. * Will continue to monitor mental status as substances have a change to wear off. May need to consider EEG. * Requiring sedation for intubation despite being intubated w/o RSR Rx in the field. * Active Suicide Attempt: * Unknown if prior attempts in the past. * Per chart review, patient had recently been admitted this week on a 201 waver in [place], but signed himself out AMA and came home to [place] w/ his parents. * Was found down w/ several pill bottles around him. * Concerning given escalation to active suicide attempt despite recent inpatient stay. * Will make patient a 1:1 with suicide precautions per hospital protocol when appropriate. Intubated and sedated for now. * Consult psych for inpatient placement when appropriate. * Would recommend 302 statement be filled out and on the chart and might even advocate for petitioned 302 on this patient given that he recently left [facility] during an inpatient stay of ~48hrs to only to go home and overdose on multiple substances. * Please see Tox TOX - * Polysubstance Overdose: * Bottles found w/ patient and known prescriptions: Latuda, Clonazepam, Hydroxyzine, Seroquel, and Lorazepam. * Initial EKG w/o widening of QTc/QRS. Will continue to monitor w/ EKG q6h. Mag/HCO3 etc. in the events of any changes. * APAP level elevated. APAP overdose assumed as well. Loading dose of NAC started as well as 21 hr protocol for unknown time of ingestion. INR slightly elevated on initial labs. * Intubated in the field 2/2 unresponsiveness. Now requiring sedation in the form of Propofol. * CT head w/o acute findings. * Mother called in and reported ?? ibuprofen ingestion as well. Will trend PRP. * Poison control contacted and recommendations currently followed. CARDIAC/VASCULAR - * Elevated CPK: * Continuing w/ ongoing IVF for now. * Will trend. * EKG: NSR @ 81bpm. No ST/T-wave changes. QTc 390/QRS 102. * Monitor on telemetry. RESPIRATORY - * Respiratory failure requiring intubation for airway protection: * Will trend ABGs * Currently on SBT. Will attempt extubation if mental status improves. GI/NUTRITION - * OGT in place * Prophylaxis: Protonix * Will check ammonia level RENAL/LYTES - * No significant electrolyte derangements. * Monitor lytes. Replace appropriately. * IVF lactated Ringer's at 250 cc/h. - * Carter in place - Strict I&Os. ENDO - * No h/o DM or Thyroid Dz * BSGs per unit protocol. ISS --> gtt per unit policy. HEME - * Stable H&H ID - * Covered w/ Unasyn for ?? aspiration. LINES/IV ACCESS - * PIVs x2 * ETT * OGT * Carter DVT PROPHYLAXIS - * Lovenox * SCDs I have personally spent 39 minutes of critical care time in the direct management of this patient. This is a life/limb threatening event. This includes time spent evaluating patient, direct bedside care, chart review, placing orders, interpretation of diagnostic studies, discussion with consultants, patient, and family members, as well as other required patient management activities. This time is exclusive of all separately billable procedures, and teaching time and separate from and in addition to any other critical care service time. Thank you for allowing us to participate in the care of this patient. Please refer to my attending physician's documentation for any further recommendations. (2) Polysubstance overdose: (3) Acute respiratory failure: (4) AMS (altered mental status): (5) Elevated CK: (6) Tylenol toxicity: (7) Suicidal overdose: (8) Intentional overdose: (9) Anxiety: (10) Depression: Admission and Anticipated Discharge Date Admission Date: August 16, 2021 Subjective Patient seen and examined. Sedation discontinued. Patient starting to open his eyes spontaneously. He was placed on a spontaneous breathing trial and seems to be maintaining his minute ventilation. Review of Systems Review of Systems: Unobtainable due to cognitive status and Unobtainable due to endotracheal tube Physical Exam Physical Exam: VITAL SIGNS - Vital signs and nursing notes were reviewed. GENERAL - 36-year-old male appearing his stated age who is in no acute distress. Intubated and sedated. SKIN - Without rashes. HEAD - NC/AT. EYES - PERRL with EOMI bilaterally. Sclera anicteric. EARS - No deformities of external structures noted on gross examination bilaterally. NOSE - Midline and without cyanosis. No epistaxis or purulent drainage noted. MOUTH/OROPHARYNX - ETT/OGT in place. Without perioral cyanosis. NECK - Supple to palpation. No nuchal rigidity. LUNGS - Chest wall symmetric without accessory muscle use, intercostals retractions, or central cyanosis. Normal vesicular breath sounds CTA B/L. No wheezes, rales, or rhonchi appreciated. CARDIAC - RRR with S1/S2. No murmur, rubs, or gallops appreciated. ABDOMEN - Abdominal contour flat without pulsations or visible masses. BS normoactive all four quadrants. No tenderness, palpable masses, hepatosplenomegaly, or ascites noted. EXTREMITIES - No clubbing or peripheral cyanosis. No pretibial edema present. +3/5 radial and dorsalis pedis pulses palpated throughout. NEUROLOGIC - No focal neurological deficits noted. Unable to fully assess otherwise 2/2 sedation/intubation. Results & Data Results & Data ([facility]) Vital Signs (Past 12 Hours) Vital Signs Temp Pulse Resp BP Pulse Ox 08/17/21 08:15 36.2 C L 66 14 98 08/17/21 08:00 36.2 C L 72 15 128/83 99 08/17/21 07:45 36.3 C L 71 15 99 08/17/21 07:30 36.3 C L 69 13 128/74 99 08/17/21 07:15 36.3 C L 69 14 99 08/17/21 07:05 67 17 100 08/17/21 07:00 36.4 C L 66 14 114/74 99 08/17/21 06:45 36.5 C 66 17 99 08/17/21 06:30 36.5 C 66 16 115/71 99 08/17/21 06:15 36.5 C 66 16 99 08/17/21 06:00 36.6 C 67 16 99 08/17/21 05:30 36.6 C 68 16 117/71 99 08/17/21 05:00 36.7 C 71 17 120/73 99 08/17/21 04:30 36.8 C 73 17 115/69 98 08/17/21 04:00 36.9 C 75 17 113/66 99 08/17/21 03:30 37.0 C 78 17 112/63 98 08/17/21 03:00 37.2 C 81 17 112/62 98 08/17/21 02:30 37.4 C 84 19 113/62 98 08/17/21 02:00 37.7 C H 87 19 121/59 L 98 08/17/21 01:30 37.9 C H 86 18 117/56 L 98 08/17/21 01:00 37.9 C H 86 20 113/54 L 98 08/17/21 00:30 37.7 C H 89 20 114/56 L 98 08/17/21 00:00 37.4 C 86 20 122/65 98 08/16/21 23:30 37.2 C 81 19 115/67 99 08/16/21 23:00 36.9 C 74 17 99 08/16/21 22:45 73 16 99 08/16/21 22:30 36.6 C 71 20 110/64 99 08/16/21 22:00 36.3 C L 67 20 110/61 99 08/16/21 21:30 36.0 C L 62 20 107/60 98 Coding Level of Care Code Critical Care 1st 30-74 mins Diagnoses Admitted to intensive care unit Z78.9 Polysubstance overdose T50.901A Acute respiratory failure J96.00 Respiratory failure complication: unspecified whether with hypoxia or hypercapnia AMS (altered mental status) R41.82 Altered mental status type: unspecified Elevated CK R74.8 Tylenol toxicity T39.1X2A Encounter type: initial encounter Injury intent: intentional self-harm Suicidal overdose T50.90 Encounter type: initial encounter Intentional overdose T50.902A Encounter type: initial encounter Anxiety F41.9 Depression F32.A Time Spent (min) 39 (1) Acute respiratory failure Respiratory failure complication: unspecified whether with hypoxia or hypercapnia Qualified Code(s): J96.00 - Acute respiratory failure, unspecified whether with hypoxia or hypercapnia (2) AMS (altered mental status) Altered mental status type: unspecified Qualified Code(s): R41.82 - Altered mental status, unspecified (3) Tylenol toxicity Encounter type: initial encounter Injury intent: intentional self-harm Qualified Code(s): T39.1X2A - Poisoning by 4-Aminophenol derivatives, intentional self-harm, initial encounter (4) Suicidal overdose Encounter type: initial encounter Qualified Code(s): T50.902A - Poisoning by unspecified drugs, medicaments and biological substances, intentional self-harm, initial encounter (5) Intentional overdose Encounter type: initial encounter Qualified Code(s): T50.902A - Poisoning by unspecified drugs, medicaments and biological substances, intentional self-harm, initial encounter
[2021-08-17] MEDS: LACTATED RINGER'S 1,000 ML IV SCH ×4 (09:40→22:07)
--- NOTE | 2021-08-17 09:40 | Communication Note ---
Date of Service: August 17, 2021 Consult received. Chart reviewed. Patient still untubated. Confirmed there is a 302 petitioning statement on the chart. Polydrug OD of psych meds, Klonopin last refilled earlier this month. Dr. Arevalo notified as requesting some clinical for emergency care ahead of the holiday weekend. Should be 1-on-1 once extubated for suicide precautions. Hold all psych meds. Monitor for benzo withdrawal as clears, currently unclear how much ingested. He was reportedly released from another ED same day with plan to see Dr. Arevalo in the afternoon but did not show for his appointment and parents found him unresponsive. He should not be allowed to leave AMA. If attempts to leave contact [facility] for 302 warrant.
[2021-08-17] MEDS: PANTOprazole 40 MG in SYRINGE 0 ML IV SCH (11:41)
[2021-08-17 12:34] LABS: Albumin Globulin Ratio 1.8 (0.9-2); Albumin Level 3.4 gm/dl (3.4-5.0); Bilirubin,Total 0.5 mg/dl (0.2-1.0); Creatinine Clr Calc Pharmacy 95.5 ml/min; Est GFR (African American) 111.7 ml/min; Est GFR (Non-African American) 96.4 ml/min; Globulin 1.9 gm/dl (2.5-4.0); Potassium 3.7 mmol/L (3.5-5.1); Total Protein 5.3 gm/dl (6.0-8.3)
[2021-08-17 12:36] LABS: Troponin I High Sensitivity 22.7 pg/ml (0-20)
--- NOTE | 2021-08-17 13:52 | Hospitalist Progress Note ---
Date of Service August 17, 2021 Assessment & Plan (1) Admitted to intensive care unit: (2) Acute respiratory failure: (3) On mechanically assisted ventilation: (4) Intentional overdose: (5) Suicidal overdose: (6) Tylenol toxicity: (7) Elevated CK: Plan: This is a 36-year-old male who has significant past medical history of depression, anxiety and anuja who presents to ED after sustaining what appears to be an intentional overdose on multiple prescription medications with suicide attempt prior to arrival. Unknown exact quantity of medications ingested and specifics; however pills noted at bedside were Latuda, clonazepam, tamsulosin, hydroxyzine, Seroquel and lorazepam. Salicylate level WNL, acetaminophen level elevated at 159. UDS- benzo positive. Patient is currently intubated in ICU but sedation off. Admitted to intensive care unit Acute respiratory failure on mechanical assisted ventilation secondary to intentional overdose Polysubstance overdose AMS Active suicide attempt Tylenol toxicity Elevated CK - Case was discussed case with poison control and recommended following * Recommends initiating N-acetylcysteine 21-hour protocol at 1, 4-hour and a 16- hour * Recommend repeating LFT, coags and Tylenol level 12 hours into the 16-hour bag * Poison control will call to follow-up * Further recommended EKGs every 6 hours due to likely ingestion of antipsychotics * If EKG reveals QRS greater than 120 treat with sodium bicarb; if QTC greater than 500 MS recommend treating with magnesium sulfate 2 g IV, recommend keeping mag greater than 2 and K > 4.5 - Management per traffic sign erection supervisor - Also on empiric unasyn for possible aspiration - Psych following- should be on 1:1 once extubated for suicide precautions- hold all psych meds and watch for possible benzo withdrawal- can not leave AMA. If attempts to leave AMA, contact [facility] for 302 warrant DVT ppx: suzanne Lovenox Dispo: ICU level of care Admission and Anticipated Discharge Date Admission Date: August 16, 2021 Subjective He is still intubated, however sedation is off. He is awake and would open eyes to verbal stimuli. No fever or shortness of breath. He is in restraints. Not in distress. Physical Exam Physical Exam: General: Intubated, on restraints. Not in distress. Chest: Fair breath sounds anteriorly CVS: Regular rate and rhythm, normal heart sounds, no murmur Abdomen: Soft, non tender, not distended, normal bowel sounds Neuro: Awake, opens eyes to verbal stimuli Extremities: No cyanosis, clubbing or edema Psych: Not agitated Results & Data Results & Data ([facility]) Vital Signs (Past 12 Hours) Vital Signs Temp Pulse Resp BP Pulse Ox 08/17/21 11:33 74 15 100 08/17/21 08:15 36.2 C L 66 14 98 08/17/21 08:00 36.2 C L 72 15 128/83 99 08/17/21 07:45 36.3 C L 71 15 99 08/17/21 07:30 36.3 C L 69 13 128/74 99 08/17/21 07:15 36.3 C L 69 14 99 08/17/21 07:05 67 17 100 08/17/21 07:00 36.4 C L 66 14 114/74 99 08/17/21 06:45 36.5 C 66 17 99 08/17/21 06:30 36.5 C 66 16 115/71 99 08/17/21 06:15 36.5 C 66 16 99 08/17/21 06:00 36.6 C 67 16 99 08/17/21 05:30 36.6 C 68 16 117/71 99 08/17/21 05:00 36.7 C 71 17 120/73 99 08/17/21 04:30 36.8 C 73 17 115/69 98 08/17/21 04:00 36.9 C 75 17 113/66 99 08/17/21 03:30 37.0 C 78 17 112/63 98 08/17/21 03:00 37.2 C 81 17 112/62 98 08/17/21 02:30 37.4 C 84 19 113/62 98 08/17/21 02:00 37.7 C H 87 19 121/59 L 98 Laboratory Results Short CBC 08/16/21 08/17/21 Range/Units 17:17 04:50 WBC 9.86 7.76 (4.8-10.8) K/uL Hgb 13.3 L 13.3 L (14.0-18.0) g/dL Hct 38.3 L 39.3 L (42-52) % Plt Count 208 221 (130-400) K/uL BMP 08/16/21 08/16/21 08/17/21 17:17 22:52 04:50 Sodium 134 L 139 139 Potassium 3.5 3.0 L 4.2 D Chloride 105 108 H 112 H Carbon Dioxide 21 21 20 L BUN 19 14 10 Creatinine 0.95 0.82 0.96 Glucose 125 H 130 H 106 H Calcium 8.1 L 7.8 L 7.8 L 08/17/21 11:58 Sodium 141 Potassium 3.7 Chloride 114 H Carbon Dioxide 20 L BUN 8 Creatinine 1.00 Glucose 103 H Calcium 8.0 L Cardiac Enzymes 08/16/21 08/17/21 08/17/21 Range/Units 17:17 04:50 11:58 Total Creatine Kinase 674 H 2495 H 2338 H (30-223) U/L Liver Function 08/16/21 08/16/21 08/17/21 Range/Units 17:17 22:52 04:50 Total Bilirubin 0.7 0.9 0.5 (0.2-1.0) mg/dl Direct Bilirubin 0.2 0.1 (0-0.2) mg/dl AST 14 32 39 (13-39) U/L ALT 14 20 23 (7-52) U/L Alkaline Phosphatase 35 31 L 33 L (34-104) U/L Albumin 3.6 3.3 L 3.4 (3.4-5.0) gm/dl 08/17/21 Range/Units 11:58 Total Bilirubin 0.5 (0.2-1.0) mg/dl Direct Bilirubin (0-0.2) mg/dl AST 41 H (13-39) U/L ALT 26 (7-52) U/L Alkaline Phosphatase 34 (34-104) U/L Albumin 3.4 (3.4-5.0) gm/dl Urine 08/16/21 Range/Units 17:27 Urine Color Yellow Urine Appearance Cloudy A (Clear) Urine pH 6.0 (4.5-7.5) Ur Specific [place] 1.024 (1.000-1.030) Urine Protein Trace H (Negative) Urine Glucose (UA) Negative (Negative) Diagnostic Findings Chest X-Ray 08/17/21 07:00 XR chest 1V portable CLINICAL HISTORY: Follow-up patchy bibasilar densities. COMPARISON STUDY: 08/16/2021 TECHNIQUE: 1 view of the chest FINDINGS: Single frontal view of the chest demonstrates the cardiomediastinal silhouette to be within normal limits. Tubes and catheters are now in anatomic position. Compared to previous examination, there is increased expansion of lungs with resolution of bibasilar atelectasis. No confluent alveolar opacities are identified. There is no evidence for pleural effusion. There is no evidence for vascular congestion. There is no acute osseous pathology. IMPRESSION: 1. Increased expansion of lungs with resolution of bibasilar atelectasis. 2. No acute chest disease. 3. Tubes and catheters in anatomic position. ACT 112: Negative or not required by law. Electronically signed by: Eloy Munguia M.D. 08/17/2021 7:57 AM Medications Administered Current Inpatient Medications Enoxaparin Sodium (Enoxaparin Inj 40 Mg/0.4 Ml Syr) 40 mg SQ Q24H [facility] Stop: 09/15/21 21:59 Last Admin: 08/16/21 21:17 Dose: 40 mg Documented by: Fentanyl Citrate (Fentanyl Citrate 100 Mcg/2 Ml Vial) 50 mcg IV Q2H PRN PRN Reason: Moderate Pain (4,5,6) on NRS Stop: 08/30/21 20:02 Propofol (Diprivan) 1,000 mg in 100 mls @ 0 mls/hr IV .Q0M LACY; Protocol Stop: 08/19/21 17:14 Last Admin: 08/17/21 09:40 Dose: Not Given Documented by: Acetylcysteine 7,400 mg/ (Dextrose) 1,037 mls @ 62.5 mls/hr IV ONCE ONE Stop: 08/17/21 15:45 Last Admin: 08/17/21 00:03 Dose: 62.5 mls/hr Documented by: Ampicillin Sodium/Sulbactam Sodium 3,000 mg/ Sodium Chloride 108 mls @ 200 mls/hr IV Q6H LACY; Protocol Stop: 08/18/21 19:42 Last Infusion: 08/17/21 09:40 Dose: Infused Documented by: Pantoprazole Sodium 40 mg/ (Syringe) 10 mls @ 5 mls/min IV DAILY@1100 LACY Stop: 09/16/21 10:59 Last Admin: 08/17/21 11:41 Dose: 5 mls/min Documented by: Lactated Ringer's (Lr) 1,000 mls @ 250 mls/hr IV .Q4H LACY Stop: 09/16/21 09:14 Last Admin: 08/17/21 09:40 Dose: 250 mls/hr Documented by: Miscellaneous (Icu Protocol For Hyperglycemia) 1 ea N/A PRN PRN; Protocol PRN Reason: Hyperglycemia Protocol Stop: 08/18/21 19:42 Propofol (Propofol Bolus From Bag) 20 mg IV Q5M PRN PRN Reason: Sedation Stop: 08/19/21 16:52 Last Admin: 08/16/21 17:15 Dose: 20 mg Documented by: (1) Acute respiratory failure Respiratory failure complication: unspecified whether with hypoxia or hypercapnia Qualified Code(s): J96.00 - Acute respiratory failure, unspecified whether with hypoxia or hypercapnia (2) Intentional overdose Encounter type: initial encounter Qualified Code(s): T50.902A - Poisoning by unspecified drugs, medicaments and biological substances, intentional self-harm, initial encounter (3) Suicidal overdose Encounter type: initial encounter Qualified Code(s): T50.902A - Poisoning by unspecified drugs, medicaments and biological substances, intentional self-harm, initial encounter (4) Tylenol toxicity Encounter type: initial encounter Injury intent: intentional self-harm Qualified Code(s): T39.1X2A - Poisoning by 4-Aminophenol derivatives, intentional self-harm, initial encounter
--- NOTE | 2021-08-17 15:18 | Communication Note ---
Date of Service: August 17, [address] Arevalo for emergency treatment. Patient has a history of treatment refractory depression and anxiety, current diagnostic impression is un specified bipolar disorder given chronic restlessness, irritability, and impulsivity (though at one point he was on Strattera in the past and Dr. Arevalo did give 1 month supply of an amphetamine prep, clearly more anxiety related per Dr. Arevalo). 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 Most recently accepted a job (2 month positi on) in [place] but ended up quitting as became more depressed and was treated in an ED in [place] on 08/15/21. Inpatient hospitalization was recommended but he would have to board for bed search and he returned home with his parents and was scheduled to see Dr. Arevalo yesterday afternoon. Entered care with Dr. Arevalo last summer under a TMS javier. He became significantly activated during the course of his TMS treatment. The patient returned to care with his previous prescriber but ultimately transferred to Dr. Arevalo for ongoing care. Dr. Arevalo is not aware of previous suicide attempts or hospitalizations. He has no history of psychosis or substance abuse. Family history is significant for sister having refractory depression/anxiety as well. Re: med trials, Dr. Arevalo felt that the patient did well relatively recently on Latuda 40 mg but had possible akathisia at higher dose and then wanted to resume Seroquel (which he previously felt was too sedating). Patient resumed SEroquel on his own and dose was being retitrated in 50 mg increments with a goal of 400 mg. The patient has also shown some response to Starbrick but wanted to discontinue it when had a "bad week". Antidepressant trials included Lexapro and likely others but no documentation that he has been tried on Wellbutrin. He has taken Lamictal prior to his entering care with Dr. Arevalo. Dr. Arevalo is not aware of any particular incident triggering his SI other than chronic symptoms and underemployed and getting hopeless. He had already discussed a possible ECT referral with the patient so when he is cleared for inpatient psych it may make sense to refer directly to a facility that offers ECT ([facility] Danika Loaiza, [place]).
--- NOTE | 2021-08-17 15:20 | XRay Report ---
KUB HISTORY: Overdose. eval for retained pills COMPARISON: None. FINDINGS: The bowel gas pattern is unremarkable. There are no dilated loops of small bowel to suggest an obstruction. No renal calculi. No ureteral calculi. No pneumoperitoneum or pneumatosis. A nasoga stric tube terminates in the distal stomach. A rectal catheter is in place. No radiopaque foreign bod ies to suggest ingested pills. IMPRESSION: 1. No radiopaque foreign bodies to suggest ingested pills. 2. Satisfactory support line placement. ACT 112: Negative or not required by law. Electronically signed by: Devan Rivres M.D. 08/17/2021 3:18 PM
--- NOTE | 2021-08-17 15:36 | Electrocardiogram Report ---
Test Reason : Blood Pressure : / mmHG Vent. Rate : 081 BPM Atrial Rate : 081 BPM P-R Int : 138 ms QRS Dur : 102 ms QT Int : 336 ms P-R-T Axes : 031 016 002 degrees QTc Int : 390 ms Poor data quality, interpretation may be adversely affected Normal sinus rhythm Nonspecific T wave abnormality Abnormal ECG No previous ECGs available Confirmed by Srikanth Rowan ([id number]) on 08/17/2021 3:36:13 PM Referred By: REFERRED SELF Confirmed By:Srikanth Rowan
[2021-08-17 15:43] LABS: INR 1.2 (0.9-1.1); Prothrombin Time 12.9 Seconds (9.0-12.0)
[2021-08-17] MEDS ORDERED: DEXTROSE 5% IV ONE (15:45)
[2021-08-17] MEDS ORDERED: ACETYLCYSTEINE IV ONE (15:45)
--- NOTE | 2021-08-17 15:45 | Electrocardiogram Report ---
Test Reason : Blood Pressure : / mmHG Vent. Rate : 074 BPM Atrial Rate : 074 BPM P-R Int : 146 ms QRS Dur : 104 ms QT Int : 474 ms P-R-T Axes : 041 026 -43 degrees QTc Int : 526 ms Normal sinus rhythm Septal infarct , age undetermined Prolonged QT Nonspecific T wave abnormality Abnormal ECG When compared with ECG of 16-AUG-2021 17:15, (unconfirmed) Septal infarct is now Present QT has lengthened Confirmed by Srikanth Rowan ([id number]) on 08/17/2021 3:45:31 PM Referred By: REFERRED SELF Confirmed By:Srikanth Rowan
--- NOTE | 2021-08-17 15:50 | Electrocardiogram Report ---
Test Reason : Blood Pressure : / mmHG Vent. Rate : 067 BPM Atrial Rate : 067 BPM P-R Int : 144 ms QRS Dur : 094 ms QT Int : 414 ms P-R-T Axes : -11 028 009 degrees QTc Int : 437 ms Normal sinus rhythm Septal infarct (cited on or before 16-AUG-2021) Abnormal ECG When compared with ECG of 16-AUG-2021 23:00, (unconfirmed) Nonspecific T wave abnormality, improved in Anterior leads QT has shortened Confirmed by Srikanth Rowan ([id number]) on 08/17/2021 3:49:32 PM Referred By: REFERRED SELF Confirmed By:Srikanth Rowan
[2021-08-17 15:56] LABS: Albumin Level 3.1 gm/dl (3.4-5.0); Bilirubin Direct 0.1 mg/dl (0-0.2); Bilirubin,Total 0.4 mg/dl (0.2-1.0)
--- NOTE | 2021-08-17 15:59 | Electrocardiogram Report ---
Test Reason : Blood Pressure : / mmHG Vent. Rate : 087 BPM Atrial Rate : 087 BPM P-R Int : 140 ms QRS Dur : 100 ms QT Int : 356 ms P-R-T Axes : 068 -03 011 degrees QTc Int : 428 ms Normal sinus rhythm Septal infarct (cited on or before 16-AUG-2021) Abnormal ECG When compared with ECG of 17-AUG-2021 05:45, (unconfirmed) No significant change was found Confirmed by Srikanth Rowan ([id number]) on 08/17/2021 3:59:03 PM Referred By: REFERRED SELF Confirmed By:Srikanth Rowan
[2021-08-17] MEDS: ENOXAPARIN INJ 40 MG/0.4 ML SYR SQ SCH (22:07)
[2021-08-18] MEDS: AMPICILLIN/SULBACTAM SOD 3,000 MG in 0.9 % SODIUM CHLORIDE 100 ML IV SCH ×3 (02:09→14:09)
[2021-08-18] MEDS: LACTATED RINGER'S 1,000 ML IV SCH ×4 (02:09→16:18)
[2021-08-18 05:43] LABS: Basophils # (auto) 0.03 K/uL (0-0.2); Basophils % (auto) 0.2 %; Eosinophils # (auto) 0.11 K/uL (0-0.5); Eosinophils % (auto) 0.8 %; Hematocrit (blood only) 43.2 % (42-52); Hemoglobin 14.5 g/dL (14.0-18.0); Immature Granulocytes # (auto) 0.04 K/uL (0.00-0.02); Immature Granulocytes % (auto) 0.3 %; Lymphocytes # (auto) 2.21 K/uL (1.2-3.4); Lymphocytes % (auto) 16.4 %; Mean Corpuscular Hemoglobin 28.1 pg (25-34); Mean Corpuscular Hgb Conc 33.6 g/dL (32-36); Mean Corpuscular Volume 83.7 fL (80-100); Mean Platelet Volume 9.6 fL (7.4-10.4); Monocytes % (auto) 2.2 %; Neutrophils # (auto) 10.76 K/uL (1.4-6.5); Neutrophils % (auto) 80.1 %; Platelet Count 213 K/uL (130-400); RDW Coefficient of Variation 13.7 % (11.5-14.5); RDW Standard Deviation 41.6 fL (36.4-46.3); Red Blood Count 5.16 M/uL (4.7-6.1); White Blood Count 13.45 K/uL (4.8-10.8)
[2021-08-18 05:55] LABS: INR 1.5 (0.9-1.1); Prothrombin Time 15.8 Seconds (9.0-12.0)
[2021-08-18 06:08] LABS: Albumin Globulin Ratio 1.6 (0.9-2); Albumin Level 3.2 gm/dl (3.4-5.0); BUN Creatinine Ratio 7.9 (10-20); Bilirubin,Total 0.6 mg/dl (0.2-1.0); Creatinine Clr Calc Pharmacy 94.5 ml/min; Est GFR (African American) 110.4 ml/min; Est GFR (Non-African American) 95.2 ml/min; Magnesium 1.9 mg/dl (1.7-2.4); Potassium 3.2 mmol/L (3.5-5.1); Total Protein 5.2 gm/dl (6.0-8.3)
[2021-08-18] MEDS ORDERED: MAGNESIUM SULFATE / D5W 1 GM/100 ML BAG IV ONE (06:44)
[2021-08-18] MEDS: POTASSIUM CHLORIDE / WTR 10 MEQ/100 ML PLCT IV SCH ×4 (07:31→12:02)
--- NOTE | 2021-08-18 08:34 | Critical Care Progress Note ---
Date of Service August 18, 2021 Assessment & Plan (1) Admitted to intensive care unit: Plan: Reason Critically Ill: 36-year-old male with history of anxiety depression presenting with active suicidal ideation with polysubstance intentional overdose attempt. Patient intubated in the field. He is requiring close monitoring given polysubstance overdose as well as need for ongoing ventilatory support. NEURO/PSYCH -suicide attempt * Likely 2/2 polypharmacy - reported pill bottles at the scene: Latuda, Clonazepam, Hydroxyzine, Seroquel, and Lorazepam. Also w/ elevated APAP level. * CT Head/Brain w/o acute findings. * Active Suicide Attempt: * Appreciate psychiatry input. TOX - * Acetaminophen level continues to be elevated. LFTs increasing. We will continue with NAC protocol. Poison control on board. Will need to consider transfer to tertiary care center if liver failure becomes worse. CARDIAC/VASCULAR - * Elevated CPK: * Trending down * Continue IV fluid hydration RESPIRATORY - * Minimal O2 support required. No prior history of lung disease. GI/NUTRITION - * LFTs trending upwards. Ammonia stable. May need to consider transfer to tertiary liver center if LFTs worsen due to Tylenol overdose. Continue NAC. RENAL/LYTES - * No significant electrolyte derangements. * Monitor lytes. Replace appropriately. * IVF lactated Ringer's at 250 cc/h. - * Carter in place - Strict I&Os. ENDO - * No h/o DM or Thyroid Dz * BSGs per unit protocol. ISS --> gtt per unit policy. HEME - * Stable H&H * INR trending up * Will give 5 mg IV vitamin K ID - * Covered w/ Unasyn for ?? aspiration. LINES/IV ACCESS - * PIVs x2 * ETT * OGT * Crater DVT PROPHYLAXIS - * Lovenox * SCDs I have personally spent 36 minutes of critical care time in the direct management of this patient. This is a life/limb threatening event. This includes time spent evaluating patient, direct bedside care, chart review, placing orders, interpretation of diagnostic studies, discussion with consultants, patient, and family members, as well as other required patient management activities. This time is exclusive of all separately billable procedures, and teaching time and separate from and in addition to any other critical care service time. Thank you for allowing us to participate in the care of this patient. Please refer to my attending physician's documentation for any further recommendations. (2) Polysubstance overdose: (3) Acute respiratory failure: (4) AMS (altered mental status): (5) Elevated CK: (6) Tylenol toxicity: (7) Suicidal overdose: (8) Intentional overdose: (9) Anxiety: (10) Depression: (11) Transaminitis: Admission and Anticipated Discharge Date Admission Date: August 16, 2021 Subjective Patient seen and examined. Alert and oriented x3. He denies any complaint at present. Hemodynamically stable. Oxygen saturations excellent on minimal nasal cannula Review of Systems Review of Systems: All systems reviewed & are unremarkable except as noted in HPI & below Physical Exam Physical Exam: Constitutional: Patient appears to be of their stated age. Patient is in no apparent distress. Patient is well-developed. Eyes: Pupils are equal round and reactive to light. Conjunctivae are normal. Anicteric sclera. Ears nose, mouth and throat: Mallampati class 2. Normal posterior oropharynx. Uvula is midline. Neck: Trachea is midline. Visual inspection is normal. Respiratory: Clear to auscultation bilaterally. No use of accessory muscles. No significant clubbing noted. Cardiovascular: Regular rate and rhythm. No murmurs. No edema. Gastrointestinal: Normal bowel sounds, soft, nontender and nondistended. No hepatosplenomegaly noted. Musculoskeletal: No cyanosis. Patient is able to move all extremities. Strength is 5 out of 5 in the upper and lower extremities. Skin: No rashes, warm dry and intact. Neurologic: No obvious focal neurological deficits seen. Psychiatric: Alert and oriented x3 with a euthymic affect. Results & Data Results & Data ([facility]) Vital Signs (Past 12 Hours) Vital Signs Temp Pulse Resp BP Pulse Ox 08/18/21 06:00 76 19 142/90 H 100 08/18/21 05:00 69 17 150/84 H 100 08/18/21 04:00 36.7 C 81 21 141/91 H 99 08/18/21 03:00 36.7 C 69 34 H 146/83 H 100 08/18/21 02:00 36.7 C 70 18 147/85 H 99 08/18/21 01:00 36.7 C 65 20 157/95 H 100 08/18/21 00:00 36.7 C 67 18 138/88 99 08/17/21 23:00 36.5 C 74 150/89 H 99 08/17/21 22:00 36.4 C L 71 140/82 99 08/17/21 21:00 36.6 C 66 133/83 100 Coding Level of Care Code Critical Care 1st 30-74 mins Diagnoses Admitted to intensive care unit Z78.9 Polysubstance overdose T50.90 Acute respiratory failure J96.00 Respiratory failure complication: unspecified whether with hypoxia or hypercapnia AMS (altered mental status) R41.82 Altered mental status type: unspecified Elevated CK R74.8 Tylenol toxicity T39.1X2A Encounter type: initial encounter Injury intent: intentional self-harm Suicidal overdose T5 Encounter type: initial encounter Intentional overdose T5 Encounter type: initial encounter Anxiety F41.9 Depression F32.A Transaminitis R74.01 Time Spent (min) 36 (1) Acute respiratory failure Respiratory failure complication: unspecified whether with hypoxia or hypercapnia Qualified Code(s): J96.00 - Acute respiratory failure, unspecified whether with hypoxia or hypercapnia (2) AMS (altered mental status) Altered mental status type: unspecified Qualified Code(s): R41.82 - Altered mental status, unspecified (3) Tylenol toxicity Encounter type: initial encounter Injury intent: intentional self-harm Qualified Code(s): T39.1X2A - Poisoning by 4-Aminophenol derivatives, intentional self-harm, initial encounter (4) Suicidal overdose Encounter type: initial encounter Qualified Code(s): T50.902A - Poisoning by unspecified drugs, medicaments and biological substances, intentional self-harm, initial encounter (5) Intentional overdose Encounter type: initial encounter Qualified Code(s): T50.902A - Poisoning by unspecified drugs, medicaments and biological substances, intentional self-harm, initial encounter
--- NOTE | 2021-08-18 09:22 | Electrocardiogram Report ---
Test Reason : Blood Pressure : / mmHG Vent. Rate : 075 BPM Atrial Rate : 075 BPM P-R Int : 158 ms QRS Dur : 100 ms QT Int : 398 ms P-R-T Axes : 040 -09 007 degrees QTc Int : 444 ms Normal sinus rhythm Cannot rule out Old Septal infarct (cited on or before 16-AUG-2021) Abnormal ECG When compared with ECG of 17-AUG-2021 12:18, No significant change was found Confirmed by Germán Douglas ([id number]) on 08/18/2021 9:22:14 AM Referred By: REFERRED SELF Confirmed By:Germán Douglas
--- NOTE | 2021-08-18 09:25 | Electrocardiogram Report ---
Test Reason : Blood Pressure : / mmHG Vent. Rate : 071 BPM Atrial Rate : 071 BPM P-R Int : 162 ms QRS Dur : 102 ms QT Int : 390 ms P-R-T Axes : 032 -25 -14 degrees QTc Int : 423 ms Normal sinus rhythm Normal ECG When compared with ECG of 17-AUG-2021 17:50, Criteria for Septal infarct no longer present Confirmed by Germán Douglas ([id number]) on 08/18/2021 9:25:19 AM Referred By: REFERRED SELF Confirmed By:Germán Douglas
--- NOTE | 2021-08-18 09:30 | Electrocardiogram Report ---
Test Reason : Blood Pressure : / mmHG Vent. Rate : 073 BPM Atrial Rate : 073 BPM P-R Int : 164 ms QRS Dur : 098 ms QT Int : 414 ms P-R-T Axes : 045 -31 -26 degrees QTc Int : 456 ms Normal sinus rhythm Left axis deviation Abnormal ECG When compared with ECG of 17-AUG-2021 23:02, No significant change Confirmed by Germán Douglas ([id number]) on 08/18/2021 9:29:47 AM Referred By: REFERRED SELF Confirmed By:Germán Douglas
[2021-08-18] MEDS: PANTOprazole 40 MG in SYRINGE 0 ML IV SCH (10:49)
[2021-08-18] MEDS ORDERED: DEXTROSE 5% IV SCH (11:00)
[2021-08-18] MEDS ORDERED: ACETYLCYSTEINE IV SCH (11:00)
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
[2021-08-18 14:16] LABS: INR 1.7 (0.9-1.1); Prothrombin Time 17.5 Seconds (9.0-12.0)
[2021-08-18 14:27] LABS: Albumin Globulin Ratio 1.7 (0.9-2); Albumin Level 3.1 gm/dl (3.4-5.0); BUN Creatinine Ratio 8.1 (10-20); Bilirubin,Total 0.8 mg/dl (0.2-1.0); Calcium 7.9 mg/dl (8.5-10.1); Est GFR (African American) 129.3 ml/min; Est GFR (Non-African American) 111.6 ml/min; Globulin 1.8 gm/dl (2.5-4.0); Potassium 3.7 mmol/L (3.5-5.1); Total Protein 4.9 gm/dl (6.0-8.3)
[2021-08-18] MEDS ORDERED: STAT IV STA ×2 (14:44→14:45)
[2021-08-18] MEDS ORDERED: CALCIUM GLUCONATE 10% 1,000 MG in DEXTROSE 5% 50 ML IV ONE (14:45)
[2021-08-18] MEDS ORDERED: POTASSIUM CHLORIDE 20 MEQ/15 ML UDC PO STA (14:48)
[2021-08-18] MEDS: SODIUM BICARBONATE 8.4% 100 MEQ in DEXTROSE 5% 1,000 ML IV SCH (15:12)
--- NOTE | 2021-08-18 16:05 | Hospitalist Progress Note ---
Date of Service August 18, 2021 Assessment & Plan (1) Acute respiratory failure: (2) Intentional overdose: (3) Suicidal overdose: (4) Tylenol toxicity: (5) Elevated CK: Plan: 36-year-old male who has significant past medical history of depression, anxiety and anuja who presents to ED 08/16 after sustaining what appears to be an intentional overdose on multiple prescription medications with suicide attempt prior to arrival. He is being managed for the following: #. Acute respiratory failure: Likely secondary to intentional overdose, was intubated, extubated 08/17, on room air. Resolved #. Polypharmacy overdose #. Tylenol toxicity #. Transaminitis: AST and ALT elevated, INR elevated. Continue to monitor. CMP in AM. GI consult. #. Prolonged QTC #. Suicidal overdose: Psy on board, can't leave AMA. 1:1. Hold psych meds for now. #. Toxic encephalopathy: Admitting CT Head w/ no Ac. findings. Secondary to polypharmacy overdose, resolved. Patient presented with polypharmacy suicidal overdose, was intubated at the field. At bedside exam 08/18, patient was AOx3, reported that he emptied half total of 1 months prescription of Seroquel, took 8 mg of clonazepam and 12 mg Ativan, 2 may be more than 30 tablets of Tylenol/ibuprofen/baby aspirin each prior to arrival. Salicylate level WNL, Tylenol level fluctuating but trending down lately, UDS benzo positive, follow-up pending UDS. Patient currently alert and oriented x3, on room air. Discussed with internet marketing executive, LFT uptrending, expressed concern that patient will benefit from transfer to tertiary center/hepatology center. Discussed with transfer center, no indication for transfer now. We will continue to monitor in ICU. Patient on NAC protocol, continue to monitor LFT, Poison control on board. EKG reviewed for today QRS of 98 an QTc of 456. Repeat EKG in AM. Prior attending discussed the case with poison control w/ following recommendation: * Recommends initiating N-acetylcysteine 21-hour protocol at 1, 4-hour and a 16- hour * Recommend repeating LFT, coags and Tylenol level 12 hours into the 16-hour bag * Poison control will call to follow-up * Further recommended EKGs every 6 hours due to likely ingestion of antipsychotics * If EKG reveals QRS greater than 120 treat with sodium bicarb; if QTC greater than 500 MS recommend treating with magnesium sulfate 2 g IV, recommend keeping mag greater than 2 and K > 4.5 #. Elevated CK Secondary to polypharmacy overdose, trending down, continue to monitor. c/w ivf. monitor renal fxn, bmp in AM. #. Depression/Suicidal attempt/Anxiet: Psychiatry on board, ? may need inpatient psy admission upon medical stable. DVT ppx: sc Lovenox Dispo: ICU level of care 08/18: Updated patient's mother and patient at bedside, answered all the questions, they voiced understanding and were agreeable to the plan of care. Admission and Anticipated Discharge Date Admission Date: August 16, 2021 Subjective Patient seen and examined at bedside as a follow-up of polypharmacy overdose x intentional, suicidal overdose and Tylenol toxicity and elevated CK. Patient was lying in bed, on room air, NAD. Patient was extubated yesterday. Patient remains in ICU, NPO. Discussed with internet marketing executive who believed that the transfer to hepatology center would benefit the patient due to his uptrending liver enzymes lately. Discussed with transfer center, no indication for transfer at this point. Patient denies any discomfort or pain or headache or dizziness or chest pain or palpitation or belly pain or other review of symptoms at bedside exam. Physical Exam Physical Exam: GENERAL: Alert and oriented x3. NAD, on RA. HEENT: No pallor, no icterus. Pupils equal, round and reactive to light. Oral mucosa moist. NECK: No JVD, no neck masses. HEART: S1 and S2 heard. Regular rate and rhythm. No murmur, no gallop. RESPIRATORY SYSTEM: Normal AP diameter. No accessory muscle use. No wheezing, no crackles. ABDOMEN: Soft, bowel sounds present, nontender, no distention. CENTRAL NERVOUS SYSTEM: No facial droop. Speech is clear. Obeys simple commands. Moves extremities. EXTREMITIES: No edema, no erythema seen. Results & Data Results & Data ([facility]) Vital Signs (Past 12 Hours) Vital Signs Temp Pulse Resp BP Pulse Ox 08/18/21 10:00 83 23 147/76 H 96 08/18/21 09:00 83 18 123/85 91 08/18/21 08:00 76 21 158/97 H 99 08/18/21 07:00 66 20 140/85 100 08/18/21 06:00 76 19 142/90 H 100 08/18/21 05:00 69 17 150/84 H 100 08/18/21 04:00 36.7 C 81 21 141/91 H 99 (1) Suicidal overdose Encounter type: initial encounter Qualified Code(s): T50.902A - Poisoning by unspecified drugs, medicaments and biological substances, intentional self-harm, initial encounter (2) Intentional overdose Encounter type: initial encounter Qualified Code(s): T50.902A - Poisoning by unspecified drugs, medicaments and biological substances, intentional self-harm, initial encounter (3) Acute respiratory failure Respiratory failure complication: unspecified whether with hypoxia or hypercapnia Qualified Code(s): J96.00 - Acute respiratory failure, unspecified whether with hypoxia or hypercapnia (4) Tylenol toxicity Encounter type: initial encounter Injury intent: intentional self-harm Qualified Code(s): T39.1X2A - Poisoning by 4-Aminophenol derivatives, intentional self-harm, initial encounter
--- NOTE | 2021-08-18 17:41 | Ultrasound Report ---
ABDOMINAL ULTRASOUND, RIGHT UPPER QUADRANT HISTORY: transaminitis. COMPARISON: None. FINDINGS: Pancreas: The pancreas demonstrates a normal echotexture. Liver: Unremarkable. Trace fluid identified at Morison's pouch. Gallbladder: No gallbladder wall thickening. No gallstones. Negative sonographic Clifton sign. CBD: 3 mm. Right kidney: No hydronephrosis. IMPRESSION: 1. Normal gallbladder. No gallstones. 2. Trace fluid identified in Morison's pouch. This is of doubtful clinical significance. ACT 112: Negative or not required by law. Electronically signed by: Devan Rivers M.D. 08/18/2021 5:39 PM
--- NOTE | 2021-08-18 17:49 | Ultrasound Report ---
US duplex portal hepatic veins CLINICAL HISTORY: eval for thrombosis. Transaminitis. COMPARISON STUDY: None FINDINGS: The hepatic, portal, and splenic veins are patent and demonstrate normal direction of flow. The hepatic artery is also patent. IMPRESSION: No evidence for portal vein thrombosis. ACT 112: Negative or not required by law. Electronically signed by: Devan Rivers M.D. 08/18/2021 5:46 PM
[2021-08-18] MEDS: ENOXAPARIN INJ 40 MG/0.4 ML SYR SQ SCH (22:40)
[2021-08-18] MEDS: BISMUTH SUBSALICYLATE 262 MG CHEW PO PRN (22:49)
[2021-08-18 23:18] LABS: Base Excess VBG 0.9 mEq/L; Oxygen Saturation VBG 76.3 %; pH VBG 7.47 (7.36-7.41)
[2021-08-18 23:19] LABS: INR 1.6 (0.9-1.1); Prothrombin Time 16.5 Seconds (9.0-12.0)
[2021-08-18 23:47] LABS: Albumin Globulin Ratio 1.8 (0.9-2); Albumin Level 3.5 gm/dl (3.4-5.0); BUN Creatinine Ratio 8.6 (10-20); Bilirubin Direct 0.2 mg/dl (0-0.2); Bilirubin,Total 0.9 mg/dl (0.2-1.0); Calcium 8.4 mg/dl (8.5-10.1); Creatinine Clr Calc Pharmacy 117.9 ml/min; Est GFR (African American) 132.5 ml/min; Est GFR (Non-African American) 114.3 ml/min; Phosphorus 1.9 mg/dl (2.5-4.9); Potassium 3.7 mmol/L (3.5-5.1); Total Protein 5.5 gm/dl (6.0-8.3)
[2021-08-19] MEDS: SODIUM BICARBONATE 8.4% 100 MEQ in DEXTROSE 5% 1,000 ML IV SCH (02:27)
[2021-08-19] MEDS ORDERED: DEXTROSE 5% IV SCH ×2 (03:00→19:00)
[2021-08-19] MEDS ORDERED: ACETYLCYSTEINE IV SCH ×2 (03:00→19:00)
[2021-08-19 06:19] LABS: Basophils # (auto) 0.02 K/uL (0-0.2); Basophils % (auto) 0.2 %; Eosinophils # (auto) 0.24 K/uL (0-0.5); Eosinophils % (auto) 2.8 %; Hematocrit (blood only) 38.9 % (42-52); Hemoglobin 13.8 g/dL (14.0-18.0); Immature Granulocytes # (auto) 0.03 K/uL (0.00-0.02); Immature Granulocytes % (auto) 0.4 %; Lymphocytes # (auto) 1.43 K/uL (1.2-3.4); Lymphocytes % (auto) 16.8 %; Mean Corpuscular Hemoglobin 29.3 pg (25-34); Mean Corpuscular Hgb Conc 35.5 g/dL (32-36); Mean Corpuscular Volume 82.6 fL (80-100); Monocytes # (auto) 0.44 K/uL (0.11-0.59); Monocytes % (auto) 5.2 %; Neutrophils # (auto) 6.35 K/uL (1.4-6.5); Neutrophils % (auto) 74.6 %; Platelet Count 203 K/uL (130-400); RDW Coefficient of Variation 13.5 % (11.5-14.5); Red Blood Count 4.71 M/uL (4.7-6.1); White Blood Count 8.51 K/uL (4.8-10.8)
[2021-08-19 06:37] LABS: BUN Creatinine Ratio 6.6 (10-20); Calcium 7.9 mg/dl (8.5-10.1); Creatinine Clr Calc Pharmacy 125.6 ml/min; Est GFR (Non-African American) 117.4 ml/min; Potassium 3.5 mmol/L (3.5-5.1)
[2021-08-19] MEDS: BISMUTH SUBSALICYLATE 262 MG CHEW PO PRN (06:41)
[2021-08-19 06:46] LABS: Albumin Globulin Ratio 1.8 (0.9-2); Bilirubin,Total 0.7 mg/dl (0.2-1.0); Globulin 1.7 gm/dl (2.5-4.0); Magnesium 1.7 mg/dl (1.7-2.4); Phosphorus 1.5 mg/dl (2.5-4.9); Total Protein 4.7 gm/dl (6.0-8.3)
[2021-08-19 07:01] LABS: INR 1.4 (0.9-1.1); Prothrombin Time 15.1 Seconds (9.0-12.0)
[2021-08-19] MEDS ORDERED: SODIUM PHOSPHATE 3 MMOL/1 ML INFUSION IV STA (08:30)
[2021-08-19] MEDS ORDERED: SODIUM PHOSPHATE 21 MMOL in SODIUM CHLORIDE 0.9% 500 ML IV ONE (09:00)
--- NOTE | 2021-08-19 09:12 | Critical Care Progress Note ---
Date of Service August 19, 2021 Assessment & Plan (1) Admitted to intensive care unit: Plan: Reason Critically Ill: 36-year-old male with history of anxiety depression presenting with active suicidal ideation with polysubstance intentional overdose attempt. Patient intubated in the field. He is requiring close monitoring given polysubstance overdose as well as need for ongoing ventilatory support. NEURO/PSYCH -suicide attempt * Likely 2/2 polypharmacy - reported pill bottles at the scene: Latuda, Clonazepam, Hydroxyzine, Seroquel, and Lorazepam. Also w/ elevated APAP level. * CT Head/Brain w/o acute findings. * Active Suicide Attempt: * Appreciate psychiatry input. TOX - * Acetaminophen level continues to be elevated. LFTs stable. Liver ultrasound unremarkable. Continue NAC protocol per poison control recommendations. GI consultation pending. CARDIAC/VASCULAR - * Elevated CPK: * Trending down RESPIRATORY - * Minimal O2 support required. No prior history of lung disease. GI/NUTRITION - * LFT stable as above. Continue NAC protocol per poison control. Advance to regular diet. RENAL/LYTES - * No significant electrolyte derangements. * Monitor lytes. Replace appropriately. * Acidosis improved with bicarbonate drip. Bicarbonate drip discontinued. - * Carter in place - Strict I&Os. ENDO - * No h/o DM or Thyroid Dz * BSGs per unit protocol. ISS --> gtt per unit policy. HEME - * Stable H&H * INR decreasing. Status post 5 mg IV vitamin K 08/18/2021. ID - * No signs of infection. Discontinue antibiotics. LINES/IV ACCESS - * PIVs x2 * Discontinue Carter DVT PROPHYLAXIS - * Lovenox * SCDs I have personally spent 33 minutes of critical care time in the direct management of this patient. This is a life/limb threatening event. This includes time spent evaluating patient, direct bedside care, chart review, placing orders, interpretation of diagnostic studies, discussion with consultants, patient, and family members, as well as other required patient management activities. This time is exclusive of all separately billable procedures, and teaching time and separate from and in addition to any other critical care service time. Thank you for allowing us to participate in the care of this patient. Please refer to my attending physician's documentation for any further recommendations. (2) Polysubstance overdose: (3) Acute respiratory failure: (4) AMS (altered mental status): (5) Elevated CK: (6) Tylenol toxicity: (7) Suicidal overdose: (8) Intentional overdose: (9) Anxiety: (10) Depression: (11) Transaminitis: Admission and Anticipated Discharge Date Admission Date: August 16, 2021 Subjective And examined. He is alert and oriented x3. He is without complaint. Tolerating his diet well. Remains on the [facility] protocol Review of Systems Review of Systems: All systems reviewed & are unremarkable except as noted in HPI & below Physical Exam Physical Exam: Constitutional: Patient appears to be of their stated age. Patient is in no apparent distress. Patient is well-developed. Eyes: Pupils are equal round and reactive to light. Conjunctivae are normal. Anicteric sclera. Ears nose, mouth and throat: Mallampati class 2. Normal posterior oropharynx. Uvula is midline. Neck: Trachea is midline. Visual inspection is normal. Respiratory: Clear to auscultation bilaterally. No use of accessory muscles. No significant clubbing noted. Cardiovascular: Regular rate and rhythm. No murmurs. No edema. Gastrointestinal: Normal bowel sounds, soft, nontender and nondistended. No hepatosplenomegaly noted. Musculoskeletal: No cyanosis. Patient is able to move all extremities. Strength is 5 out of 5 in the upper and lower extremities. Skin: No rashes, warm dry and intact. Neurologic: No obvious focal neurological deficits seen. Psychiatric: Alert and oriented x3 with a euthymic affect. Results & Data Results & Data ([facility]) Vital Signs (Past 12 Hours) Vital Signs Pulse Resp BP Pulse Ox 08/19/21 08:30 100 H 17 97 08/19/21 08:00 87 23 137/94 94 08/19/21 07:30 113 H 20 94 08/19/21 07:00 74 19 136/88 93 08/19/21 06:30 72 23 98 08/19/21 06:04 79 22 137/77 97 08/19/21 05:00 78 21 134/79 95 08/19/21 04:00 75 22 137/78 96 08/19/21 03:00 79 22 130/76 96 08/19/21 02:00 93 H 26 H 146/93 H 96 08/19/21 01:00 80 23 134/79 98 08/19/21 00:00 80 21 139/80 96 08/18/21 23:01 86 24 127/83 97 08/18/21 22:00 88 23 133/77 97 Coding Level of Care Code Critical Care 1st 30-74 mins Diagnoses Admitted to intensive care unit Z78.9 Polysubstance overdose T50.901A Acute respiratory failure J96.00 Respiratory failure complication: unspecified whether with hypoxia or hypercapnia AMS (altered mental status) R41.82 Altered mental status type: unspecified Elevated CK R74.8 Tylenol toxicity T39.1X2A Encounter type: initial encounter Injury intent: intentional self-harm Suicidal overdose T50. Encounter type: initial encounter Intentional overdose T50.90 Encounter type: initial encounter Anxiety F41.9 Depression F32.A Transaminitis R74.01 Time Spent (min) 33 (1) Acute respiratory failure Respiratory failure complication: unspecified whether with hypoxia or hypercapnia Qualified Code(s): J96.00 - Acute respiratory failure, unspecified whether with hypoxia or hypercapnia (2) AMS (altered mental status) Altered mental status type: unspecified Qualified Code(s): R41.82 - Altered mental status, unspecified (3) Tylenol toxicity Encounter type: initial encounter Injury intent: intentional self-harm Qualified Code(s): T39.1X2A - Poisoning by 4-Aminophenol derivatives, intentional self-harm, initial encounter (4) Suicidal overdose Encounter type: initial encounter Qualified Code(s): T50.902A - Poisoning by unspecified drugs, medicaments and biological substances, intentional self-harm, initial encounter (5) Intentional overdose Encounter type: initial encounter Qualified Code(s): T50.902A - Poisoning by unspecified drugs, medicaments and biological substances, intentional self-harm, initial encounter
[2021-08-19] MEDS: MAGNESIUM SULFATE / D5W 1 GM/100 ML BAG IV SCH ×4 (09:13→13:36)
[2021-08-19] MEDS: POTASSIUM CHLORIDE CRTAB 20 MEQ TABCR PO SCH ×2 (09:13→11:56)
--- NOTE | 2021-08-19 10:12 | Gastrointestinal Consultation ---
Date of Consultation August 19, 2021 Assessment & Plan (1) Acetaminophen overdose: The patient had been admitted with an acetaminophen overdose in addition to other substances. The patient's liver enzymes did increase but his bilirubin remains normal, there is no evidence of encephalopathy and his INR is not elevated. I would recommend a daily set of liver enzymes and INR until these parameters normalize. With regard to N-acetylcysteine he was given an appropriate induction but I would recommend continued use of N-acetylcysteine until his LT drops to one half of its peak. Continue NACinfusion rate (6.25 mg/kg per hour) until his ALT improves by 50%. Please screen for viral liver disease (HCV RNA, HAV, HBV, CMV and EBV) History of Present Illness Reason for Consultation: Elevated liver tests Requesting Physician: Dr. Gaming Attending Physician: Elvis Gaming MD History of Present Illness This is a 36-year-old male who has significant past medical history of depression, anxiety and anuja who presented to ED on 08/16/21 after an intentional overdose on multiple prescription medications. It is unclear quantity of medication but his medication bottles include Latuda, clonazepam, tamsulosin, hydroxyzine, Seroquel and lorazepam. The patient was unresponsive and was intubated in the field. Drug tox screen was positive for Benzodiazepin and and initial acetaminophen of 159. The patient was managed in the ICU and started on N-acetylcysteine for a suspected acetaminophen overdose. The patient was recently extubated and GI was asked to see him this morning for elevated liver enzymes. The patient denies having abdominal pain or nausea and is seated in his bed eating a full breakfast. Allergies Allergy/AdvReac Type Severity Reaction Status Date / Time No Known Drug Allergies AdvReac Verified 09/06/20 11:33 Home Medications Medication Instructions Recorded Confirmed Type clonazepam 1 mg tablet 1 mg PO DIRECTED 08/16/21 08/16/21 History hydroxyzine pamoate 25 mg capsule 25 mg PO DIRECTED 08/16/21 08/16/21 History lurasidone 40 mg tablet (Latuda) 40 mg PO DAILY 08/16/21 08/16/21 History quetiapine 100 mg tablet 100 - 150 mg PO DIRECTED 08/16/21 08/16/21 History tamsulosin 0.4 mg capsule 0.4 mg PO DAILY 08/16/21 08/16/21 History Patient History Medical History Anxiety Depression Frequent urination Tingling of right upper extremity when sleeping to have MRI Transaminitis Whiplash 10/2019 fell from ladder Surgical History History of hernia surgery Family History Sister Depression Social History Smoking Status: Never smoker Hx Alcohol Use: Yes Alcohol Intake Frequency: Monthly or Less Alcohol Intake Frequency Comment: occassional per family Hx Substance Use: No Preferred Language: Thai Communication Ability: Unable Communication Ability Comment: unable to respond Pipe Supervisor Required: No Beliefs That Will Affect Care: None marital status: Single Current Living Situation: Family Current Living Situation Comment: unable to respond Feels Safe at Home: Yes Assistive Devices: Contacts Assistive Devices Comment: unable to respond Review of Systems Constitutional: no fever and no sweats Eyes: no diplopia Ear, Nose, Mouth, Throat: no ear pain Respiratory: no change in sputum and no hemoptysis Cardiovascular: no chest pain and no chest pain with activity Gastrointestinal: no bloating Genitourinary: no urinary frequency Musculoskeletal: no radicular pain Integumentary: no rash Neurologic: no falls Psychiatric: + behavioral changes, + depression, + hopelessness and + suicidal ideation Endocrine: no polydipsia Hematologic / Lymphatic: no coagulopathy Allergy / Immunological: no lip swelling and no tongue swelling Physical Exam Constitutional: WD/WN, vitals as above Eyes: no Scleral icterus Neck: trachea midline, no thyromegaly Respiratory: Auscultation: no diminished lung sounds, no crackles, no rales and no wheezes Cardiovascular: Heart Sounds: no murmur Gastrointestinal (Abdomen): Inspection/Auscultation: abdomen not distended and no abdominal edema Skin: no rashes, warm and dry Neurologic: no asterixis Results & Data ([facility]) Vital Signs (Past 12 Hours) Vital Signs Pulse Resp BP Pulse Ox 08/19/21 08:30 100 H 17 97 08/19/21 08:00 87 23 137/94 94 05/29/22 07:30 113 H 20 94 08/19/21 07:00 74 19 136/88 93 08/19/21 06:30 72 23 98 08/19/21 06:04 79 22 137/77 97 08/19/21 05:00 78 21 134/79 95 08/19/21 04:00 75 22 137/78 96 08/19/21 03:00 79 22 130/76 96 08/19/21 02:00 93 H 26 H 146/93 H 96 08/19/21 01:00 80 23 134/79 98 08/19/21 00:00 80 21 139/80 96 08/18/21 23:01 86 24 127/83 97 Laboratory Results Laboratory Results - last 24 hr 08/18/21 08/18/21 08/18/21 13:56 13:56 22:50 WBC RBC Hgb Hct MCV MCH MCHC RDW Std Deviation RDW Coeff of Esthela Plt Count MPV Immature Gran % (Auto) Neut % (Auto) Lymph % (Auto) [place] % (Auto) Eos % (Auto) Baso % (Auto) Neut # (Auto) Lymph # (Auto) [place] # (Auto) Eos # (Auto) Baso # (Auto) Immature Gran # (Auto) PT 17.5 H 16.5 H INR 1.7 H 1.6 H VBG pH VBG pCO2 VBG pO2 VBG HCO3 VBG O2 Saturation VBG Base Excess Barometric Pressure Sodium 138 Potassium 3.7 Chloride 110 H Carbon Dioxide 19 L Anion Gap 9 BUN 7 Creatinine 0.86 Est Cr Clr Drug Dosing 111.0 Est GFR ( Amer) 129.3 Est GFR (Non-Af Amer) 111.6 BUN/Creatinine Ratio 8.1 L Glucose 77 Calcium 7.9 L Phosphorus Magnesium Total Bilirubin 0.8 Direct Bilirubin AST 101 H ALT 226 H Alkaline Phosphatase 36 Ammonia Total Protein 4.9 L Albumin 3.1 L Globulin 1.8 L Albumin/Globulin Ratio 1.7 Acetaminophen 08/18/21 08/18/21 08/18/21 22:50 22:50 22:50 WBC RBC Hgb Hct MCV MCH MCHC RDW Std Deviation RDW Coeff of Esthela Plt Count MPV Immature Gran % (Auto) Neut % (Auto) Lymph % (Auto) [place] % (Auto) Eos % (Auto) Baso % (Auto) Neut # (Auto) Lymph # (Auto) [place] # (Auto) Eos # (Auto) Baso # (Auto) Immature Gran # (Auto) PT INR VBG pH 7.47 H VBG pCO2 33 L VBG pO2 39 VBG HCO3 24 VBG O2 Saturation 76.3 VBG Base Excess 0.9 Barometric Pressure 731.0 Sodium 137 Potassium 3.7 Chloride 107 Carbon Dioxide 22 Anion Gap 8 BUN 7 Creatinine 0.81 Est Cr Clr Drug Dosing 117.9 Est GFR ( Amer) 132.5 Est GFR (Non-Af Amer) 114.3 BUN/Creatinine Ratio 8.6 L Glucose 96 Calcium 8.4 L Phosphorus 1.9 L D Magnesium Total Bilirubin 0.9 Direct Bilirubin 0.2 AST 108 H ALT 273 H Alkaline Phosphatase 44 Ammonia 35.0 Total Protein 5.5 L Albumin 3.5 Globulin 2.0 L Albumin/Globulin Ratio 1.8 Acetaminophen 08/19/21 08/19/21 08/19/21 05:15 05:15 05:15 WBC 8.51 RBC 4.71 Hgb 13.8 L Hct 38.9 L MCV 82.6 MCH 29.3 MCHC 35.5 RDW Std Deviation 41.0 RDW Coeff of Esthela 13.5 Plt Count 203 MPV 10.0 Immature Gran % (Auto) 0.4 Neut % (Auto) 74.6 Lymph % (Auto) 16.8 [place] % (Auto) 5.2 Eos % (Auto) 2.8 Baso % (Auto) 0.2 Neut # (Auto) 6.35 Lymph # (Auto) 1.43 [place] # (Auto) 0.44 Eos # (Auto) 0.24 Baso # (Auto) 0.02 Immature Gran # (Auto) 0.03 H PT 15.1 H INR 1.4 H VBG pH VBG pCO2 VBG pO2 VBG HCO3 VBG O2 Saturation VBG Base Excess Barometric Pressure Sodium 138 Potassium 3.5 Chloride 108 H Carbon Dioxide 24 Anion Gap 6 BUN 5 L Creatinine 0.76 Est Cr Clr Drug Dosing 125.6 Est GFR ( Amer) 136.0 Est GFR (Non-Af Amer) 117.4 BUN/Creatinine Ratio 6.6 L Glucose 99 Calcium 7.9 L Phosphorus 1.5 L* Magnesium 1.7 Total Bilirubin 0.7 Direct Bilirubin AST 122 H ALT 288 H Alkaline Phosphatase 36 Ammonia Total Protein 4.7 L Albumin 3.0 L Globulin 1.7 L Albumin/Globulin Ratio 1.8 Acetaminophen 08/19/21 05:15 WBC RBC Hgb Hct MCV MCH MCHC RDW Std Deviation RDW Coeff of Esthela Plt Count MPV Immature Gran % (Auto) Neut % (Auto) Lymph % (Auto) [place] % (Auto) Eos % (Auto) Baso % (Auto) Neut # (Auto) Lymph # (Auto) [place] # (Auto) Eos # (Auto) Baso # (Auto) Immature Gran # (Auto) PT INR VBG pH VBG pCO2 VBG pO2 VBG HCO3 VBG O2 Saturation VBG Base Excess Barometric Pressure Sodium Potassium Chloride Carbon Dioxide Anion Gap BUN Creatinine Est Cr Clr Drug Dosing Est GFR ( Amer) Est GFR (Non-Af Amer) BUN/Creatinine Ratio Glucose Calcium Phosphorus Magnesium Total Bilirubin Direct Bilirubin AST ALT Alkaline Phosphatase Ammonia Total Protein Albumin Globulin Albumin/Globulin Ratio Acetaminophen < 3 L Diagnostic Findings [place], [place] [phone] Ultrasound Report Patient:PARISA PATEL Admit Date:08/16/21 MR#:[id number] Address1:[address] [place] [address] Acct ID:[id number] Address2: Date:1985 [facility] Zip:[place] [address] Age:36 Location: Sex: Room/Bed:[facility] Att Phy:Elvis Gaming MD Diagnosis:POLYPHARMACY OVERDOSE Ilana Phy:Yanely Navarrete MD Service Date:08/18/21 [facility] Phy: Interpreting Phy:Devan Rivers [facility] Phy:Acosta Posey MD Ordering Phy:Sundar Whittington MD cc: ~ ABDOMINAL ULTRASOUND, RIGHT UPPER QUADRANT HISTORY: transaminitis. COMPARISON: None. FINDINGS: Pancreas: The pancreas demonstrates a normal echotexture. Liver: Unremarkable. Trace fluid identified at Morison's pouch. Gallbladder: No gallbladder wall thickening. No gallstones. Negative sonographic Clifton sign. CBD: 3 mm. Right kidney: No hydronephrosis. IMPRESSION: 1. Normal gallbladder. No gallstones. 2. Trace fluid identified in Morison's pouch. This is of doubtful clinical significance. US duplex portal hepatic veins CLINICAL HISTORY: eval for thrombosis. Transaminitis. COMPARISON STUDY: None FINDINGS: The hepatic, portal, and splenic veins are patent and demonstrate normal direction of flow. The hepatic artery is also patent. IMPRESSION: No evidence for portal vein thrombosis.
[2021-08-19 11:02] LABS: 7-Aminoclonaz, Confirm 371 ng/mL (<25); Hydro-Alp Ur, GC/MS NEGATIVE ng/mL (<25); Hydroxyethylflurazepam, Conf NEGATIVE ng/mL (<50); Hydroxymidazolam Ur, GC/MS NEGATIVE ng/mL (<50); Hydroxytriazolam NEGATIVE ng/mL (<50); Lorazepam, Ur GC/MS 591 ng/mL (<50); Nordiazepam, Confirm NEGATIVE ng/mL (<50); Oxazepam Ur, GC/MS NEGATIVE ng/mL (<50); Temazepam, Confirm NEGATIVE ng/mL (<50)
[2021-08-19] MEDS: PANTOprazole 40 MG in SYRINGE 0 ML IV SCH (11:56)
--- NOTE | 2021-08-19 12:19 | Hospitalist Progress Note ---
Date of Service August 19, 2021 Assessment & Plan (1) Acute respiratory failure: (2) Intentional overdose: (3) Suicidal overdose: (4) Tylenol toxicity: (5) Elevated CK: Plan: 36-year-old male who has significant past medical history of depression, anxiety and anuja who presents to ED 08/16 after sustaining what appears to be an intentional overdose on multiple prescription medications with suicide attempt prior to arrival. He is being managed for the following: #. Acute respiratory failure: Likely secondary to intentional overdose, was intubated, extubated 08/17, on room air. Resolved #. Polypharmacy overdose #. Tylenol toxicity #. Transaminitis: AST and ALT elevated, INR elevated. Continue to monitor. CMP in AM. GI evaluated, hepatitis panel, c/w nac infusion until ALT improves by 50% from its peak. d/w GI #. Prolonged QTC #. Suicidal overdose: Psy on board, can't leave AMA. 1:1. Hold psych meds for now. #. Toxic encephalopathy: Admitting CT Head w/ no Ac. findings. Secondary to polypharmacy overdose, resolved. Patient presented with polypharmacy suicidal overdose, was intubated at the field. At bedside exam 08/18, patient was AOx3, reported that he emptied half total of 1 months prescription of Seroquel, took 8 mg of clonazepam and 12 mg Ativan, 2 may be more than 30 tablets of Tylenol/ibuprofen/baby aspirin each prior to arrival. Salicylate level WNL, Tylenol level fluctuating but trending down lately, UDS benzo positive, follow-up pending UDS. Patient currently alert and oriented x3, on room air. LFT uptrending, GI on board, hepatitis panel, c/w nac infusion. We will continue to monitor in ICU. Patient on NAC protocol, continue to monitor LFT, Poison control on board. Latest EKG w/ QRS 96 and QTc 419. Repeat EKG in AM or prn. Prior attending discussed the case with poison control w/ following recommendation: * Recommends initiating N-acetylcysteine 21-hour protocol at 1, 4-hour and a 16- hour * Recommend repeating LFT, coags and Tylenol level 12 hours into the 16-hour bag * Poison control will call to follow-up * Further recommended EKGs every 6 hours due to likely ingestion of antipsychotics * If EKG reveals QRS greater than 120 treat with sodium bicarb; if QTC greater than 500 MS recommend treating with magnesium sulfate 2 g IV, recommend keeping mag greater than 2 and K > 4.5 #. Elevated CK Secondary to polypharmacy overdose, trending down, continue to monitor. Monitor renal fxn, bmp in AM. #. Depression/Suicidal attempt/Anxiet: Psychiatry on board, ? may need inpatient psy admission upon medical stable. DVT ppx: sc Lovenox Dispo: ICU level of care, can't leave AMA. 08/18: Updated patient's mother and patient at bedside, answered all the questions, they voiced understanding and were agreeable to the plan of care. Admission and Anticipated Discharge Date Admission Date: August 16, 2021 Subjective Patient seen and examined at bedside as a follow-up of polypharmacy overdose x intentional, suicidal overdose and Tylenol toxicity and elevated CK. Patient was lying in bed, on room air, NAD. Patient was extubated 08/17. Patient remains in ICU, tolerating diet, on NAC infusion. Patient denies any discomfort or pain or headache or dizziness or chest pain or palpitation or belly pain or other review of symptoms at bedside exam. Physical Exam Physical Exam: GENERAL: Alert and oriented x3. NAD, on RA. HEENT: No pallor, no icterus. Pupils equal, round and reactive to light. Oral mucosa moist. NECK: No JVD, no neck masses. HEART: S1 and S2 heard. Regular rate and rhythm. No murmur, no gallop. RESPIRATORY SYSTEM: Normal AP diameter. No accessory muscle use. No wheezing, no crackles. ABDOMEN: Soft, bowel sounds present, nontender, no distention. CENTRAL NERVOUS SYSTEM: No facial droop. Speech is clear. Obeys simple commands. Moves extremities. EXTREMITIES: No edema, no erythema seen. Results & Data Results & Data ([facility]) Vital Signs (Past 12 Hours) Vital Signs Pulse Resp BP Pulse Ox 08/19/21 08:30 100 H 17 97 08/19/21 08:00 87 23 137/94 94 08/19/21 07:30 113 H 20 94 08/19/21 07:00 74 19 136/88 93 08/19/21 06:30 72 23 98 08/19/21 06:04 79 22 137/77 97 08/19/21 05:00 78 21 134/79 95 08/19/21 04:00 75 22 137/78 96 08/19/21 03:00 79 22 130/76 96 08/19/21 02:00 93 H 26 H 146/93 H 96 08/19/21 01:00 80 23 134/79 98 (1) Acute respiratory failure Respiratory failure complication: unspecified whether with hypoxia or hypercapnia Qualified Code(s): J96.00 - Acute respiratory failure, unspecified whether with hypoxia or hypercapnia (2) Intentional overdose Encounter type: initial encounter Qualified Code(s): T50.902A - Poisoning by unspecified drugs, medicaments and biological substances, intentional self-harm, initial encounter (3) Suicidal overdose Encounter type: initial encounter Qualified Code(s): T50.902A - Poisoning by unspecified drugs, medicaments and biological substances, intentional self-harm, initial encounter (4) Tylenol toxicity Encounter type: initial encounter Injury intent: intentional self-harm Qualified Code(s): T39.1X2A - Poisoning by 4-Aminophenol derivatives, intentional self-harm, initial encounter
--- NOTE | 2021-08-19 13:05 | Psychiatric Progress Note ---
Date of Service August 19, 2021 Impression / Recommendations Impression This is a 36 yo man admitted medically following an intentional overdose suicide attempt. Diagnostically consistent with depressive episode of BPAD in the context of recent stressors including worsening mood with poor medication response and financial strain. Acute risk of self-harm remains elevated and high given suicide attempt requiring medical admission, major depressive symptoms, social isolation, access to lethal means, hopelessness, high psychic distress and ongoing ambivalence about being alive. Given elevated risk of harm to self they meet criteria for inpatient psychiatric care for diagnostic clarification, safety/stabilization, development of additional coping skills, medication management and disposition/safety planning once medically stable. If they do not agree to voluntary treatment at that time they will meet criteria for 302 status based on severity of suicide attempt and ongoing modifiable risk factors. 08/19/21: Remains severely depressed and regrets having survived attempt with ongoing active SI. Remains in need of inpatient psych treatment once medically stable. -Continue 1-on-1 for high risk of harm to self -Do not discharge or allow to leave AMA, contact psych liason if this occurs -Hold psych medications for now given liver injury -Continue to monitor closely for benzo withdrawal -Once medically cleared plan for psychiatric hospitalization (either 201 or 302 status) -Psych liason to contact pt's father and will safety plan regarding limiting access to lethal means (1) Bipolar disorder with severe depression: (2) Depression: (3) Suicidal overdose: (4) Intentional overdose: (5) Transaminitis: (6) Polysubstance overdose: see above Risk Factors Assessment Do You Have Access To A Gun?: Yes (his father has guns in the home) Interval History Identifying Information 36 yo man living in [facility] with his parents with history of depression, anxiety and BPAD who was admitted medically following suicide attempt via polypharmacy overdose. Psychiatry was consulted for risk assessment and disposition recommendations. Chief Complaint "I feel horrible, I don't want to be alive". Review of Systems Notes reports "ok" sleep and stable appetite Subjective Subjective Patient was seen & assessed and interval progress reviewed. David could not recall meeting me yesterday. Reviewed discussion we had yesterday and re- confirmed his ROIs. He agrees that what we discussed yesterday was all accurate. Remains fully oriented. He continues to feel very depressed and continues to have active SI but no plan nor intent. Notes that not having any friends and social isolation has also contributed to his depression. Today notes regret at having survived the suicide attempt. Remains agreeable for inpatient psych treatment once medically stable, asked him to think about if a facility with ECT would be his preference for once bed search starts. Physical Exam Psychiatric Orientation: alert and oriented x 3 Apperance: appropriately dressed and appropriately groomed Eye Contact: good eye contact Motor Behavior: no abnormal motor movements Speech: normal rate/rhythm/volume of speech Affect: + depressed affect and + flat affect Mood: + depressed mood Thought Process: goal directed thought process Thought Content: reality based without delusions Suicidal Thoughts: denies suicidal plan and denies suicidal intent; + reports suicidal thoughts Homicidal Thoughts: denies homicidal thoughts Hallucinations: no auditory hallucinations and no visual hallucinations Cognition: recent memory grossly intact, remote memory grossly intact, attention grossly intact and language grossly intact Estimated Intelligence: consistent with education level Insight: + fair insight Judgement: + fair judgement Vital Signs (Past 24 Hours) Last Vital Signs Temp 36.7 C 08/18/21 04:00 Pulse 93 H 08/19/21 12:00 Resp 23 08/19/21 12:00 BP 152/99 H 08/19/21 12:00 Pulse Ox 94 08/19/21 12:00 Results & Data ([facility]) Laboratory Results Laboratory Results - last 24 hr 08/16/21 08/18/21 08/18/21 17:27 13:56 13:56 WBC RBC Hgb Hct MCV MCH MCHC RDW Std Deviation RDW Coeff of Esthela Plt Count MPV Immature Gran % (Auto) Neut % (Auto) Lymph % (Auto) Burke % (Auto) Eos % (Auto) Baso % (Auto) Neut # (Auto) Lymph # (Auto) Burke # (Auto) Eos # (Auto) Baso # (Auto) Immature Gran # (Auto) PT 17.5 H INR 1.7 H VBG pH VBG pCO2 VBG pO2 VBG HCO3 VBG O2 Saturation VBG Base Excess Barometric Pressure Sodium 138 Potassium 3.7 Chloride 110 H Carbon Dioxide 19 L Anion Gap 9 BUN 7 Creatinine 0.86 Est Cr Clr Drug Dosing 111.0 Est GFR ( Amer) 129.3 Est GFR (Non-Af Amer) 111.6 BUN/Creatinine Ratio 8.1 L Glucose 77 Calcium 7.9 L Phosphorus Magnesium Total Bilirubin 0.8 Direct Bilirubin AST 101 H ALT 226 H Alkaline Phosphatase 36 Ammonia Total Protein 4.9 L Albumin 3.1 L Globulin 1.8 L Albumin/Globulin Ratio 1.7 Acetaminophen U OH-Alprazolam Confrm NEGATIVE 7-Amino Clonazepam 371 H Ur Nordiazepam Confirm NEGATIVE U OH-ethylflurazepam NEGATIVE U Lorazepam Cnf GC/MS 591 H U Oxazepam Confm GC/MS NEGATIVE Ur Temazepam Confirm NEGATIVE U OH-Triazolam Confirm NEGATIVE U OH-Midazolam Confirm NEGATIVE Drug Screen Comment SEE NOTE 08/18/21 08/18/21 08/18/21 22:50 22:50 22:50 WBC RBC Hgb Hct MCV MCH MCHC RDW Std Deviation RDW Coeff of Esthela Plt Count MPV Immature Gran % (Auto) Neut % (Auto) Lymph % (Auto) Burke % (Auto) Eos % (Auto) Baso % (Auto) Neut # (Auto) Lymph # (Auto) Burke # (Auto) Eos # (Auto) Baso # (Auto) Immature Gran # (Auto) PT 16.5 H INR 1.6 H VBG pH VBG pCO2 VBG pO2 VBG HCO3 VBG O2 Saturation VBG Base Excess Barometric Pressure Sodium 137 Potassium 3.7 Chloride 107 Carbon Dioxide 22 Anion Gap 8 BUN 7 Creatinine 0.81 Est Cr Clr Drug Dosing 117.9 Est GFR ( Amer) 132.5 Est GFR (Non-Af Amer) 114.3 BUN/Creatinine Ratio 8.6 L Glucose 96 Calcium 8.4 L Phosphorus 1.9 L D Magnesium Total Bilirubin 0.9 Direct Bilirubin 0.2 AST 108 H ALT 273 H Alkaline Phosphatase 44 Ammonia 35.0 Total Protein 5.5 L Albumin 3.5 Globulin 2.0 L Albumin/Globulin Ratio 1.8 Acetaminophen U OH-Alprazolam Confrm 7-Amino Clonazepam Ur Nordiazepam Confirm U OH-ethylflurazepam U Lorazepam Cnf GC/MS U Oxazepam Confm GC/MS Ur Temazepam Confirm U OH-Triazolam Confirm U OH-Midazolam Confirm Drug Screen Comment 08/18/21 08/19/21 08/19/21 22:50 05:15 05:15 WBC 8.51 RBC 4.71 Hgb 13.8 L Hct 38.9 L MCV 82.6 MCH 29.3 MCHC 35.5 RDW Std Deviation 41.0 RDW Coeff of Esthela 13.5 Plt Count 203 MPV 10.0 Immature Gran % (Auto) 0.4 Neut % (Auto) 74.6 Lymph % (Auto) 16.8 Burke % (Auto) 5.2 Eos % (Auto) 2.8 Baso % (Auto) 0.2 Neut # (Auto) 6.35 Lymph # (Auto) 1.43 Burke # (Auto) 0.44 Eos # (Auto) 0.24 Baso # (Auto) 0.02 Immature Gran # (Auto) 0.03 H PT INR VBG pH 7.47 H VBG pCO2 33 L VBG pO2 39 VBG HCO3 24 VBG O2 Saturation 76.3 VBG Base Excess 0.9 Barometric Pressure 731.0 Sodium 138 Potassium 3.5 Chloride 108 H Carbon Dioxide 24 Anion Gap 6 BUN 5 L Creatinine 0.76 Est Cr Clr Drug Dosing 125.6 Est GFR ( Amer) 136.0 Est GFR (Non-Af Amer) 117.4 BUN/Creatinine Ratio 6.6 L Glucose 99 Calcium 7.9 L Phosphorus 1.5 L* Magnesium 1.7 Total Bilirubin 0.7 Direct Bilirubin AST 122 H ALT 288 H Alkaline Phosphatase 36 Ammonia Total Protein 4.7 L Albumin 3.0 L Globulin 1.7 L Albumin/Globulin Ratio 1.8 Acetaminophen U OH-Alprazolam Confrm 7-Amino Clonazepam Ur Nordiazepam Confirm U OH-ethylflurazepam U Lorazepam Cnf GC/MS U Oxazepam Confm GC/MS Ur Temazepam Confirm U OH-Triazolam Confirm U OH-Midazolam Confirm Drug Screen Comment 08/19/21 08/19/21 05:15 05:15 WBC RBC Hgb Hct MCV MCH MCHC RDW Std Deviation RDW Coeff of Esthela Plt Count MPV Immature Gran % (Auto) Neut % (Auto) Lymph % (Auto) Burke % (Auto) Eos % (Auto) Baso % (Auto) Neut # (Auto) Lymph # (Auto) Burke # (Auto) Eos # (Auto) Baso # (Auto) Immature Gran # (Auto) PT 15.1 H INR 1.4 H VBG pH VBG pCO2 VBG pO2 VBG HCO3 VBG O2 Saturation VBG Base Excess Barometric Pressure Sodium Potassium Chloride Carbon Dioxide Anion Gap BUN Creatinine Est Cr Clr Drug Dosing Est GFR ( Amer) Est GFR (Non-Af Amer) BUN/Creatinine Ratio Glucose Calcium Phosphorus Magnesium Total Bilirubin Direct Bilirubin AST ALT Alkaline Phosphatase Ammonia Total Protein Albumin Globulin Albumin/Globulin Ratio Acetaminophen < 3 L U OH-Alprazolam Confrm 7-Amino Clonazepam Ur Nordiazepam Confirm U OH-ethylflurazepam U Lorazepam Cnf GC/MS U Oxazepam Confm GC/MS Ur Temazepam Confirm U OH-Triazolam Confirm U OH-Midazolam Confirm Drug Screen Comment Current Inpatient Medications Current Inpatient Medications: Current Inpatient Medications Bismuth Subsalicylate (Bismuth Subsalicylate 262 Mg Chew) 1 tab PO Q4H PRN PRN Reason: Diarrhea Stop: 09/17/21 22:06 Last Admin: 08/19/21 06:41 Dose: 1 tab Documented by: Enoxaparin Sodium (Enoxaparin Inj 40 Mg/0.4 Ml Syr) 40 mg SQ Q24H [facility]ACY Stop: 09/15/21 21:59 Last Admin: 08/18/21 22:40 Dose: 40 mg Documented by: Fentanyl Citrate (Fentanyl Citrate 100 Mcg/2 Ml Vial) 50 mcg IV Q2H PRN PRN Reason: Moderate Pain (4,5,6) on NRS Stop: 08/30/21 20:02 Propofol (Diprivan) 1,000 mg in 100 mls @ 0 mls/hr IV .Q0M [facility]; Protocol Stop: 08/19/21 17:14 Last Titration: 08/17/21 19:23 Dose: Infused Documented by: Pantoprazole Sodium 40 mg/ (Syringe) 10 mls @ 5 mls/min IV DAILY@1100 [facility] Stop: 09/16/21 10:59 Last Admin: 08/19/21 11:56 Dose: 5 mls/min Documented by: Acetylcysteine 7,400 mg/ (Dextrose) 1,037 mls @ 64.813 mls/hr IV TODAY@0300 [facility] Stop: 08/19/21 18:59 Last Admin: 08/19/21 03:00 Dose: 64.8 mls/hr Documented by: Magnesium Sulfate/Dextrose (Magnesium Sulfate / D5w) 1 gm in 100 mls @ 50 mls/hr IV Q2H [facility] Stop: 08/19/21 16:29 Last Admin: 08/19/21 12:18 Dose: 50 mls/hr Documented by: Sodium Phosphate 21 mmol/ (Sodium Chloride) 507 mls @ 88 mls/hr IV ONE ONE Stop: 08/19/21 14:45 Last Admin: 08/19/21 09:13 Dose: 88 mls/hr Documented by: Acetylcysteine 7,400 mg/ (Dextrose) 1,037 mls @ 64.813 mls/hr IV TODAY@1900 [facility] Stop: 08/20/21 10:59 Miscellaneous (Icu Electrolyte Replacement Protocol) 1 ea N/A BID@,18 [facility]; Protocol Stop: 08/26/21 17:59 Propofol (Propofol Bolus From Bag) 20 mg IV Q5M PRN PRN Reason: Sedation Stop: 08/19/21 16:52 Last Admin: 08/16/21 17:15 Dose: 20 mg Documented by: (1) Suicidal overdose Encounter type: initial encounter Qualified Code(s): T50.902A - Poisoning by unspecified drugs, medicaments and biological substances, intentional self-harm, initial encounter (2) Intentional overdose Encounter type: initial encounter Qualified Code(s): T50.902A - Poisoning by unspecified drugs, medicaments and biological substances, intentional self-harm, initial encounter
--- NOTE | 2021-08-19 13:42 | Electrocardiogram Report ---
Test Reason : Blood Pressure : / mmHG Vent. 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
--- NOTE | 2021-08-19 14:40 | Electrocardiogram Report ---
Test Reason : Blood Pressure : / mmHG Vent. Rate : 097 BPM Atrial Rate : 097 BPM P-R Int : 146 ms QRS Dur : 094 ms QT Int : 358 ms P-R-T Axes : 067 -37 014 degrees QTc Int : 454 ms Normal sinus rhythm with sinus arrhythmia Left axis deviation Abnormal ECG When compared with ECG of 18-AUG-2021 04:40, No significant change was found Confirmed by Germán Douglas ([id number]) on 08/19/2021 2:39:42 PM Referred By: REFERRED SELF Confirmed By:Germán Douglas
[2021-08-19 15:55] LABS: Alanine Aminotransferase 453 U/L (7-52); Aspartate Aminotransferase 175 U/L (13-39)
[2021-08-19] MEDS ORDERED: ICU ELECTROLYTE REPLACEMENT PROTOCOL SCH (18:00)
[2021-08-19] MEDS ORDERED: clonazePAM 1 MG TAB PO STA (21:03)
[2021-08-19] MEDS ORDERED: LOPERAMIDE HCL 2 MG CAP PO STA (21:04)
[2021-08-19 21:44] LABS: BUN Creatinine Ratio 8.2 (10-20); Calcium 8.6 mg/dl (8.5-10.1); Creatinine Clr Calc Pharmacy 86.8 ml/min; Est GFR (African American) 99.6 ml/min; Est GFR (Non-African American) 85.9 ml/min; Magnesium 1.7 mg/dl (1.7-2.4); Phosphorus 2.4 mg/dl (2.5-4.9); Potassium 3.5 mmol/L (3.5-5.1)
[2021-08-19] MEDS ORDERED: POTASSIUM PHOS 3 MMOL/1 ML INFUSION IV STA (22:04)
[2021-08-19] MEDS ORDERED: MoRPHine SULFATE 4 MG/ML 1 ML CARP\\VIAL IV STA (22:04)
[2021-08-19] MEDS ORDERED: POTASSIUM PHOSPHATE 21 MMOL in SODIUM CHLORIDE 0.9% 500 ML IV ONE (22:30)
[2021-08-19] MEDS ORDERED: MAGNESIUM SULFATE / D5W 1 GM/100 ML BAG IV ONE (22:30)
[2021-08-19] MEDS: ENOXAPARIN INJ 40 MG/0.4 ML SYR SQ SCH (22:32)
[2021-08-20] MEDS ORDERED: MoRPHine SULFATE 4 MG/ML 1 ML CARP\\VIAL IV STA (03:39)
[2021-08-20 06:27] LABS: Albumin Globulin Ratio 1.6 (0.9-2); Albumin Level 3.3 gm/dl (3.4-5.0); BUN Creatinine Ratio 8.3 (10-20); Bilirubin,Total 0.4 mg/dl (0.2-1.0); Calcium 8.4 mg/dl (8.5-10.1); Creatinine Clr Calc Pharmacy 113.7 ml/min; Est GFR (African American) 130.6 ml/min; Est GFR (Non-African American) 112.6 ml/min; Globulin 2.1 gm/dl (2.5-4.0); Magnesium 2.1 mg/dl (1.7-2.4); Phosphorus 3.4 mg/dl (2.5-4.9); Potassium 3.4 mmol/L (3.5-5.1); Total Protein 5.4 gm/dl (6.0-8.3)
[2021-08-20 06:39] LABS: INR 1.1 (0.9-1.1); Prothrombin Time 11.8 Seconds (9.0-12.0)
[2021-08-20] MEDS: fentaNYL citrate 100 MCG/2 ML VIAL IV PRN ×3 (07:01→23:31)
[2021-08-20] MEDS ORDERED: POTASSIUM CHLORIDE CRTAB 20 MEQ TABCR PO STA (07:40)
[2021-08-20 07:49] LABS: Albumin Level 3.4 gm/dl (3.4-5.0); Bilirubin Direct 0.1 mg/dl (0-0.2); Bilirubin,Total 0.5 mg/dl (0.2-1.0); Total Protein 5.7 gm/dl (6.0-8.3)
--- NOTE | 2021-08-20 08:45 | Ultrasound Report ---
US venous doppler LE BI CLINICAL HISTORY: lower ext pain TECHNIQUE: Bilateral lower extremity real-time compression venous ultrasound with Color Doppler imagi ng. Utilizing real-time ultrasonic imaging multiple real time high-resolution ultrasonic images with compression and noncompression maneuvers of the deep venous system in addition to color doppler imagi ng were performed from the common femoral vein through the proximal calf veins. COMPARISON: None available at the time of this dictation. FINDINGS: Currently there is normal compressibility of the deep venous system from the common femoral vein thro ugh the proximal calf veins. No current evidence of acute thrombosis is identified. Impression: No evidence of deep venous thrombus. ACT 112: Negative or not required by law. Electronically signed by: Drake Montemayor M.D. 08/20/2021 8:44 AM
--- NOTE | 2021-08-20 10:03 | Gastroenterology Progress Note ---
Date of Service August 20, 2021 Assessment & Plan (1) Acetaminophen overdose: Plan: Patient with a history of polysubstance overdose and suspected acetaminophen overdose on N-acetylcysteine for several days. Given the persistent increase in his ALT we are awaiting viral serologies to evaluate for other potential causes of liver test elevation. The patient has a normal bilirubin and what appears to be normal synthetic function so we will continue monitoring and supportive care for the present time. Commend that the N-acetylcysteine be continued present rate Admission and Anticipated Discharge Date Admission Date: August 16, 2021 Subjective The patient seems somewhat agitated this morning. When I approached him he was pacing the room but was willing to stop and talk for a few minutes. Review of Systems Eyes: no diplopia Ear, Nose, Mouth, Throat: no ear trauma Respiratory: no change in sputum Physical Exam Constitutional: no acute distress Eyes: No icterus Neck: trachea midline, no thyromegaly Respiratory: normal respiratory effort, lungs clear to auscultation Cardiovascular: Heart Sounds: no murmur Gastrointestinal (Abdomen): Percussion/Palpation: abdomen soft; abdomen nontender Results & Data ([facility]) Vital Signs (Past 12 Hours) Vital Signs Pulse Resp BP Pulse Ox 08/20/21 07:40 100 H 08/20/21 04:00 73 18 134/89 96 08/20/21 00:00 72 19 160/89 H 08/19/21 23:18 80 08/19/21 23:00 82 17 96 Laboratory Results Laboratory Results - last 24 hr 08/16/21 08/19/21 08/19/21 17:27 14:48 14:51 PT INR Sodium Potassium Chloride Carbon Dioxide Anion Gap BUN Creatinine Est Cr Clr Drug Dosing Est GFR ( Amer) Est GFR (Non-Af Amer) BUN/Creatinine Ratio Glucose POC Glucose Calcium Phosphorus Magnesium Total Bilirubin Direct Bilirubin AST 175 H ALT 453 H Alkaline Phosphatase Total Creatine Kinase Total Protein Albumin Globulin Albumin/Globulin Ratio U OH-Alprazolam Confrm NEGATIVE 7-Amino Clonazepam 371 H Ur Nordiazepam Confirm NEGATIVE U OH-ethylflurazepam NEGATIVE U Lorazepam Cnf GC/MS 591 H U Oxazepam Confm GC/MS NEGATIVE Ur Temazepam Confirm NEGATIVE U OH-Triazolam Confirm NEGATIVE U OH-Midazolam Confirm NEGATIVE Drug Screen Comment SEE NOTE CMV IgM Ab Pending CMV IgG Ab/TORCH Pending Hepatitis A IgM Ab Pending Hep Bs Antigen Pending Hep Bs Ag Confirmation Pending Hep B Core IgM Ab Pending Hepatitis C Ab (EIA) Pending Hep C Ab Signal/Cutoff Pending 08/19/21 08/20/21 08/20/21 21:11 05:11 05:11 PT 11.8 INR 1.1 Sodium 138 138 Potassium 3.5 3.4 L Chloride 106 106 Carbon Dioxide 24 26 Anion Gap 8 6 BUN 9 7 Creatinine 1.10 D 0.84 Est Cr Clr Drug Dosing 86.8 113.7 Est GFR ( Amer) 99.6 130.6 Est GFR (Non-Af Amer) 85.9 112.6 BUN/Creatinine Ratio 8.2 L 8.3 L Glucose 116 H 100 H POC Glucose Calcium 8.6 8.4 L Phosphorus 2.4 L 3.4 D Magnesium 1.7 2.1 Total Bilirubin 0.4 Direct Bilirubin AST 255 H ALT 684 H Alkaline Phosphatase 40 Total Creatine Kinase Total Protein 5.4 L Albumin 3.3 L Globulin 2.1 L Albumin/Globulin Ratio 1.6 U OH-Alprazolam Confrm 7-Amino Clonazepam Ur Nordiazepam Confirm U OH-ethylflurazepam U Lorazepam Cnf GC/MS U Oxazepam Confm GC/MS Ur Temazepam Confirm U OH-Triazolam Confirm U OH-Midazolam Confirm Drug Screen Comment CMV IgM Ab CMV IgG Ab/TORCH Hepatitis A IgM Ab Hep Bs Antigen Hep Bs Ag Confirmation Hep B Core IgM Ab Hepatitis C Ab (EIA) Hep C Ab Signal/Cutoff 08/20/21 08/20/21 08/20/21 07:11 07:11 08:30 PT INR Sodium Potassium Chloride Carbon Dioxide Anion Gap BUN Creatinine Est Cr Clr Drug Dosing Est GFR ( Amer) Est GFR (Non-Af Amer) BUN/Creatinine Ratio Glucose POC Glucose 100 H Calcium Phosphorus Magnesium Total Bilirubin 0.5 Direct Bilirubin 0.1 AST 280 H ALT 779 H Alkaline Phosphatase 41 Total Creatine Kinase 897 H Total Protein 5.7 L Albumin 3.4 Globulin Albumin/Globulin Ratio U OH-Alprazolam Confrm 7-Amino Clonazepam Ur Nordiazepam Confirm U OH-ethylflurazepam U Lorazepam Cnf GC/MS U Oxazepam Confm GC/MS Ur Temazepam Confirm U OH-Triazolam Confirm U OH-Midazolam Confirm Drug Screen Comment CMV IgM Ab CMV IgG Ab/TORCH Hepatitis A IgM Ab Hep Bs Antigen Hep Bs Ag Confirmation Hep B Core IgM Ab Hepatitis C Ab (EIA) Hep C Ab Signal/Cutoff
[2021-08-20] MEDS ORDERED: clonazePAM 1 MG TAB PO STA (10:06)
--- NOTE | 2021-08-20 10:34 | Ultrasound Report ---
US arterial duplex LE BI CLINICAL HISTORY: severe lower ext pain TECHNIQUE: Real-time grayscale and color and spectral Doppler ultrasound imaging of the bilateral low er extremity arteries was performed. Measurements calculated based on NASCET criteria. COMPARISON: Comparison is made to bilateral venous Doppler 08/19/2021 FINDINGS: RIGHT: Common femoral artery: Triphasic waveforms. Peak systolic velocity (PSV) 143 cm/s. Deep femoral artery: Triphasic waveforms. PSV 93 cm/s. Superficial femoral artery: Triphasic waveforms. PSV 145 cm/s. Popliteal artery: Triphasic waveforms. PSV 80 cm/s. Anterior tibial artery: Triphasic waveforms. PSV 47 cm/s. Posterior tibial artery: Triphasic waveforms. PSV 81 cm/s. Peroneal artery: Triphasic waveforms. PSV 94 cm/s. Dorsalis pedis: Triphasic waveforms. PSV 86 cm/s. LEFT: Common femoral artery: Triphasic waveforms. Peak systolic velocity (PSV) 94 cm/s. Deep femoral artery: Triphasic waveforms. PSV 101 cm/s. Superficial femoral artery: Triphasic waveforms. PSV 149 cm/s. Popliteal artery: Triphasic waveforms. PSV 89 cm/s. Anterior tibial artery: Triphasic waveforms. PSV 84 cm/s. Posterior tibial artery: Triphasic waveforms. PSV 118 cm/s. Peroneal artery: Triphasic waveforms. PSV 67 cm/s. Dorsalis pedis: Triphasic waveforms. PSV 111 cm/s. Minimal atherosclerotic plaque is seen. Reference ranges: Normal Ankle/Brachial Index (LESTER) 1.0-1.4; 0.91-0.99 borderline; < or = 0.9 abnormal (0.7-0.89 mild, 0.51-0.69 moderate, < or = 0.5 severe peripheral arterial disease). Normal Toe/Brachial Index (TBI) > or = 0.6; < 0.6 abnormal (0.34-0.59 mild, 0.12-0.34 moderate, < or = 0.11 severe peripheral arterial disease). IMPRESSION: No hemodynamically significant stenosis. ACT 112: Negative or not required by law. Electronically signed by: Drake Montemayor M.D. 08/20/2021 10:31 AM
[2021-08-20] MEDS: DEXTROSE 5% IV SCH (10:55)
[2021-08-20] MEDS: ACETYLCYSTEINE IV SCH (10:55)
[2021-08-20] MEDS ORDERED: LORazepam 2 MG/1 ML VIAL IV STA (11:48)
[2021-08-20] MEDS: PANTOprazole 40 MG in SYRINGE 0 ML IV SCH (11:53)
[2021-08-20] MEDS ORDERED: PROPRANOLOL HCL 10 MG TAB PO SCH (12:15)
[2021-08-20] MEDS ORDERED: MIRTAZAPINE TAB 15 MG TAB PO ONE (12:54)
--- NOTE | 2021-08-20 13:12 | Psychiatric Progress Note ---
Date of Service August 20, 2021 Impression / Recommendations Impression This is a 36 yo man admitted medically following an intentional overdose suicide attempt. Diagnostically consistent with depressive episode of BPAD in the context of recent stressors including worsening mood with poor medication response and financial strain. Acute risk of self-harm remains elevated and high given suicide attempt requiring medical admission, major depressive symptoms, social isolation, access to lethal means, hopelessness, high psychic distress and ongoing ambivalence about being alive. Given elevated risk of harm to self they meet criteria for inpatient psychiatric care for diagnostic clarification, safety/stabilization, development of additional coping skills, medication management and disposition/safety planning once medically stable. If they do not agree to voluntary treatment at that time they will meet criteria for 302 status based on severity of suicide attempt and ongoing modifiable risk factors. 08/20/21: Has developed severe akathisia, likely from the latuda, as the benzodiazepines are wearing off. Showing a poor response to benzos so far. Discussed in detail with Dr. Gaming, challenge of balancing relief from akathisia with his ongoing elevated LFTs, but QTc has improved. Recommendations for akathisia below. Remains in need of inpatient psych treatment once medically stable. -Continue 1-on-1 for high risk of harm to self -Do not discharge or allow to leave AMA, contact psych liason if this occurs -Hold psych medications for now given liver injury -Continue to monitor closely for benzo withdrawal -Once medically cleared plan for psychiatric hospitalization (either 201 or 302 status) -Psych liason to contact pt's father and will safety plan regarding limiting access to lethal means (1) Bipolar disorder with severe depression: (2) Antipsychotic-induced akathisia: (3) Depression: (4) Suicidal overdose: (5) Intentional overdose: (6) Transaminitis: (7) Polysubstance overdose: For new akathisia: -Can continue with ativan po 0.5 mg - 1mg BID prn and can titrate as needed to up to 3mg po BID prn for relief -Would start propranolol 10mg po BID prn and can titrate as needed to up to 40mg po TID prn OR 60mg po BID prn for relief -Added one time dose of mirtazapine 7.5 mg now x1 as sometimes this can offer relief, if helpful he can get 7.5 mg per day (higher doses may worsen akathisia) -If all above is unsuccessful could consider trial of cogentin 1mg po BID prn OR clonidine 0.1 mg po BID though limited data to suggest any benefit -If symptoms persist may want to consider neurology input as in refractory cases sometimes parkinson medications can be used though data is limited and in case there remains need to balance any benefits with risk of ongoing medical instability from overdose -Given his level of distress should behavioral emergency occur would use zyprexa 5 mg po or IM BUT NEVER WITHIN 1 HOUR OF IM OR IV BENZODIAZEPINE USE Risk Factors Assessment Do You Have Access To A Gun?: Yes (his father has guns in the home) Interval History Identifying Information 36 yo man living in [facility] with his parents with history of depression, anxiety and BPAD who was admitted medically following suicide attempt via polypharmacy overdose. Psychiatry was consulted for risk assessment and disposition recommendations. Chief Complaint "I can't stop moving my legs it's unbearable". Subjective Subjective Patient was seen & assessed and interval progress reviewed. LFTs continue to trend up. Last EKG showed QTc of 419 and downtrending. Starting last night and into today he's experiencing severe restlessness with repeated non-purposeful movements of his legs bilaterally. Earlier was unable to sit still and had to pace in his room. Received clonazepam and lorazepam without much relief but now able to lie in bed but repeatedly continuing to move his legs. Psych liason helped him apply some heated blankets and pressure which also offered some relief. BP remains stable. He recalls having significant leg akathisia with Latuda in the past and thus had stopped it and estimates he took hundreds of miligrams of latuda in the overdose. Physical Exam Psychiatric Orientation: alert and oriented x 3 Apperance: appropriately dressed and appropriately groomed Eye Contact: good eye contact Motor Behavior: + akathisia (severe) Speech: normal rate/rhythm/volume of speech Affect: + anxious affect Mood: + depressed mood and + anxious mood (uncomfortable from akathisia) Thought Process: goal directed thought process Thought Content: reality based without delusions Suicidal Thoughts: denies suicidal plan and denies suicidal intent; + reports suicidal thoughts Homicidal Thoughts: denies homicidal thoughts Hallucinations: no auditory hallucinations and no visual hallucinations Cognition: recent memory grossly intact, remote memory grossly intact, attention grossly intact and language grossly intact Estimated Intelligence: consistent with education level Insight: + fair insight Judgement: + fair judgement Vital Signs (Past 24 Hours) Last Vital Signs Temp 36.9 C 08/19/21 12:30 Pulse 100 H 08/20/21 07:40 Resp 18 08/20/21 04:00 BP 134/89 08/20/21 04:00 Pulse Ox 96 08/20/21 04:00 Results & Data ([facility]) Laboratory Results Laboratory Results - last 24 hr 08/19/21 08/19/21 08/19/21 14:48 14:51 21:11 PT INR Sodium 138 Potassium 3.5 Chloride 106 Carbon Dioxide 24 Anion Gap 8 BUN 9 Creatinine 1.10 D Est Cr Clr Drug Dosing 86.8 Est GFR ( Amer) 99.6 Est GFR (Non-Af Amer) 85.9 BUN/Creatinine Ratio 8.2 L Glucose 116 H POC Glucose Calcium 8.6 Phosphorus 2.4 L Magnesium 1.7 Total Bilirubin Direct Bilirubin AST 175 H ALT 453 H Alkaline Phosphatase Total Creatine Kinase Total Protein Albumin Globulin Albumin/Globulin Ratio CMV IgM Ab Pending CMV IgG Ab/TORCH Pending Hepatitis A IgM Ab Pending Hep Bs Antigen Pending Hep Bs Ag Confirmation Pending Hep B Core IgM Ab Pending Hepatitis C Ab (EIA) Pending Hep C Ab Signal/Cutoff Pending 08/20/21 08/20/21 08/20/21 05:11 05:11 07:11 PT 11.8 INR 1.1 Sodium 138 Potassium 3.4 L Chloride 106 Carbon Dioxide 26 Anion Gap 6 BUN 7 Creatinine 0.84 Est Cr Clr Drug Dosing 113.7 Est GFR ( Amer) 130.6 Est GFR (Non-Af Amer) 112.6 BUN/Creatinine Ratio 8.3 L Glucose 100 H POC Glucose Calcium 8.4 L Phosphorus 3.4 D Magnesium 2.1 Total Bilirubin 0.4 0.5 Direct Bilirubin 0.1 AST 255 H 280 H ALT 684 H 779 H Alkaline Phosphatase 40 41 Total Creatine Kinase Total Protein 5.4 L 5.7 L Albumin 3.3 L 3.4 Globulin 2.1 L Albumin/Globulin Ratio 1.6 CMV IgM Ab CMV IgG Ab/TORCH Hepatitis A IgM Ab Hep Bs Antigen Hep Bs Ag Confirmation Hep B Core IgM Ab Hepatitis C Ab (EIA) Hep C Ab Signal/Cutoff 08/20/21 08/20/21 07:11 08:30 PT INR Sodium Potassium Chloride Carbon Dioxide Anion Gap BUN Creatinine Est Cr Clr Drug Dosing Est GFR ( Amer) Est GFR (Non-Af Amer) BUN/Creatinine Ratio Glucose POC Glucose 100 H Calcium Phosphorus Magnesium Total Bilirubin Direct Bilirubin AST ALT Alkaline Phosphatase Total Creatine Kinase 897 H Total Protein Albumin Globulin Albumin/Globulin Ratio CMV IgM Ab CMV IgG Ab/TORCH Hepatitis A IgM Ab Hep Bs Antigen Hep Bs Ag Confirmation Hep B Core IgM Ab Hepatitis C Ab (EIA) Hep C Ab Signal/Cutoff Current Inpatient Medications Current Inpatient Medications: Current Inpatient Medications Bismuth Subsalicylate (Bismuth Subsalicylate 262 Mg Chew) 1 tab PO Q4H PRN PRN Reason: Diarrhea Stop: 09/17/21 22:06 Last Admin: 08/19/21 06:41 Dose: 1 tab Documented by: Enoxaparin Sodium (Enoxaparin Inj 40 Mg/0.4 Ml Syr) 40 mg SQ Q24H [facility] Stop: 09/15/21 21:59 Last Admin: 08/19/21 22:32 Dose: 40 mg Documented by: Fentanyl Citrate (Fentanyl Citrate 100 Mcg/2 Ml Vial) 50 mcg IV Q2H PRN PRN Reason: Moderate Pain (4,5,6) on NRS Stop: 08/30/21 20:02 Last Admin: 08/20/21 07:01 Dose: 50 mcg Documented by: Pantoprazole Sodium 40 mg/ (Syringe) 10 mls @ 5 mls/min IV DAILY@1100 [facility] Stop: 09/16/21 10:59 Last Admin: 08/20/21 11:53 Dose: 5 mls/min Documented by: Acetylcysteine 7,400 mg/ (Dextrose) 1,037 mls @ 64.813 mls/hr IV TODAY@1100 [facility] Stop: 08/21/21 10:00 Last Admin: 08/20/21 10:55 Dose: 64.8 mls/hr Documented by: Lorazepam (Lorazepam 2 Mg/1 Ml Vial) 0.5 mg IV Q6H PRN; Protocol PRN Reason: Agitation Stop: 09/19/21 12:04 Mirtazapine (Mirtazapine Tab 15 Mg Tab) 7.5 mg PO NOW ONE Stop: 08/20/21 12:55 Propranolol HCl (Propranolol Hcl 10 Mg Tab) 10 mg PO BID [facility] Stop: 09/19/21 12:14 Last Admin: 08/20/21 12:44 Dose: 10 mg Documented by: (1) Suicidal overdose Encounter type: initial encounter Qualified Code(s): T50.902A - Poisoning by unspecified drugs, medicaments and biological substances, intentional self-harm, initial encounter (2) Intentional overdose Encounter type: initial encounter Qualified Code(s): T50.902A - Poisoning by unspecified drugs, medicaments and biological substances, intentional self-harm, initial encounter
--- NOTE | 2021-08-20 14:28 | Hospitalist Progress Note ---
Date of Service August 20, 2021 Assessment & Plan (1) Acute respiratory failure: (2) Intentional overdose: (3) Suicidal overdose: (4) Tylenol toxicity: (5) Elevated CK: Plan: 36-year-old male who has significant past medical history of depression, anxiety and anuja who presents to ED 08/16 after sustaining what appears to be an intentional overdose on multiple prescription medications with suicide attempt prior to arrival. He is being managed for the following: #. Acute respiratory failure: Likely secondary to intentional overdose, was intubated, extubated 08/17, on room air. Resolved #. Polypharmacy overdose #. Tylenol toxicity #. Transaminitis: AST and ALT remains elevated, INR better. Continue to monitor. f/u INR and LFTs. GI evaluated, hepatitis panel, c/w nac infusion until ALT improves by 50% from its peak. #. Prolonged QTC #. Suicidal overdose: Psy on board, can't leave AMA. 1:1. Hold psych meds for now. #. Toxic encephalopathy: Admitting CT Head w/ no Ac. findings. Secondary to polypharmacy overdose, resolved. Patient presented with polypharmacy suicidal overdose, was intubated at the field. At bedside exam 08/18, patient was AOx3, reported that he emptied half total of 1 months prescription of Seroquel, took 8 mg of clonazepam and 12 mg Ativan, 2 may be more than 30 tablets of Tylenol/ibuprofen/baby aspirin each prior to arrival. Salicylate level WNL, Tylenol level trended down, UDS benzo positive. Patient currently alert and oriented x3, on room air. LFT uptrending, GI on board, hepatitis panel, c/w nac infusion. Patient on NAC protocol, continue to monitor LFT, Poison control on board. Latest EKG w/ QRS 96 and QTc 419. Repeat EKG ordered. Prior attending discussed the case with poison control w/ following recommendation: * Recommends initiating N-acetylcysteine 21-hour protocol at 1, 4-hour and a 16- hour * Recommend repeating LFT, coags and Tylenol level 12 hours into the 16-hour bag * Poison control will call to follow-up * Further recommended EKGs every 6 hours due to likely ingestion of antipsychotics * If EKG reveals QRS greater than 120 treat with sodium bicarb; if QTC greater than 500 MS recommend treating with magnesium sulfate 2 g IV, recommend keeping mag greater than 2 and K > 4.5 #. Elevated CK #. Electrolytes abnormalities Secondary to polypharmacy overdose, trending down, continue to monitor. Monitor renal fxn, bmp in AM. Monitor and replete electrolytes. #. Akathisia Patient started having restless feeling in his both legs the evening of 08/19, BLE US Doppler negative for DVT. Patient was pacing in the room in the morning of 08/20, stated he cannot stay at one place. Likely new akathisia secondary to the recent antipsychotic overdose of the background of overdosed benzodiazepine wearing off. Patient received Ativan with not much relief, discussed with psychiatry. Appreciate psychiatric recommendations 08/20 for akathisia. #. Depression/Suicidal attempt/Anxiet: Psychiatry on board, ? may need inpatient psy admission upon medical stability. DVT ppx: sc Lovenox Dispo: PCU level of care, can't leave AMA. 08/18: Updated patient's mother and patient at bedside, answered all the questions, they voiced understanding and were agreeable to the plan of care. Admission and Anticipated Discharge Date Admission Date: August 16, 2021 Subjective Patient seen and examined at bedside as a follow-up of polypharmacy overdose x intentional, suicidal overdose and Tylenol toxicity and elevated CK. Patient was pacing in the room, on room air, seemed restless, stated that he cannot stay still (likely akathisia), stated this is going on since last night, reports that US Doppler BLE done to rule out DVT actually helped to calm his BLE restlessness for a while. Otherwise patient denies any headache or dizziness or chest pain or palpitation or belly pain or nausea or vomiting. Discussed with psychiatry, appreciate recommendations. Physical Exam Physical Exam: GENERAL: Alert and oriented x3. mild distress, pacing in the room, on RA. HEENT: No pallor, no icterus. Pupils equal, round and reactive to light. Oral mucosa moist. NECK: No JVD, no neck masses. HEART: S1 and S2 heard. Regular rate and rhythm. No murmur, no gallop. RESPIRATORY SYSTEM: Normal AP diameter. No accessory muscle use. No wheezing, no crackles. ABDOMEN: Soft, bowel sounds present, nontender, no distention. CENTRAL NERVOUS SYSTEM: No facial droop. Speech is clear. Obeys simple commands. Moves extremities. EXTREMITIES: No edema, no erythema seen. Results & Data Results & Data ([facility]) Vital Signs (Past 12 Hours) Vital Signs Pulse Resp BP Pulse Ox 08/20/21 14:00 67 18 97 08/20/21 13:00 83 23 94 08/20/21 12:25 96 H 21 151/98 H 94 08/20/21 12:00 96 H 15 94 08/20/21 11:00 108 H 22 95 08/20/21 10:00 114 H 24 94 08/20/21 09:00 84 16 95 08/20/21 08:00 88 15 146/96 H 96 08/20/21 07:43 97 H 19 173/91 H 96 08/20/21 07:40 100 H 08/20/21 07:00 123 H 22 08/20/21 06:00 78 20 08/20/21 05:00 83 17 08/20/21 04:00 73 18 134/89 96 (1) Acute respiratory failure Respiratory failure complication: unspecified whether with hypoxia or hypercapnia Qualified Code(s): J96.00 - Acute respiratory failure, unspecified whether with hypoxia or hypercapnia (2) Intentional overdose Encounter type: initial encounter Qualified Code(s): T50.902A - Poisoning by unspecified drugs, medicaments and biological substances, intentional self-harm, initial encounter (3) Suicidal overdose Encounter type: initial encounter Qualified Code(s): T50.902A - Poisoning by unspecified drugs, medicaments and biological substances, intentional self-harm, initial encounter (4) Tylenol toxicity Encounter type: initial encounter Injury intent: intentional self-harm Qualified Code(s): T39.1X2A - Poisoning by 4-Aminophenol derivatives, intentional self-harm, initial encounter
[2021-08-20] MEDS ORDERED: PROPRANOLOL HCL 10 MG TAB PO PRN (14:42)
[2021-08-20] MEDS: LORazepam 2 MG/1 ML VIAL IV PRN ×2 (16:10→22:19)
[2021-08-20] MEDS: ENOXAPARIN INJ 40 MG/0.4 ML SYR SQ SCH (22:07)
[2021-08-21 00:40] LABS: INR 1.1 (0.9-1.1); Prothrombin Time 11.3 Seconds (9.0-12.0)
[2021-08-21 01:04] LABS: Alanine Aminotransferase 833 U/L (7-52); Aspartate Aminotransferase 239 U/L (13-39)
[2021-08-21] MEDS: DEXTROSE 5% IV SCH (02:30)
[2021-08-21] MEDS: ACETYLCYSTEINE IV SCH (02:30)
[2021-08-21 05:46] LABS: Hematocrit (blood only) 35.6 % (42-52); Hemoglobin 12.3 g/dL (14.0-18.0); Mean Corpuscular Hemoglobin 29.3 pg (25-34); Mean Corpuscular Hgb Conc 34.6 g/dL (32-36); Mean Corpuscular Volume 84.8 fL (80-100); Mean Platelet Volume 9.6 fL (7.4-10.4); Platelet Count 178 K/uL (130-400); RDW Coefficient of Variation 13.4 % (11.5-14.5); RDW Standard Deviation 41.1 fL (36.4-46.3); White Blood Count 7.45 K/uL (4.8-10.8)
[2021-08-21 06:05] LABS: BUN Creatinine Ratio 12.9 (10-20); Calcium 8.7 mg/dl (8.5-10.1); Creatinine Clr Calc Pharmacy 149.9 ml/min; Est GFR (African American) 140.7 ml/min; Est GFR (Non-African American) 121.4 ml/min; Phosphorus 3.3 mg/dl (2.5-4.9); Potassium 3.5 mmol/L (3.5-5.1)
[2021-08-21] MEDS ORDERED: POTASSIUM CHLORIDE CRTAB 20 MEQ TABCR PO STA (07:22)
[2021-08-21 08:57] LABS: INR 1.1 (0.9-1.1); Prothrombin Time 11.4 Seconds (9.0-12.0)
[2021-08-21 09:49] LABS: Albumin Level 3.4 gm/dl (3.4-5.0); Bilirubin Direct 0.1 mg/dl (0-0.2); Bilirubin,Total 0.5 mg/dl (0.2-1.0); Total Protein 5.6 gm/dl (6.0-8.3)
[2021-08-21] MEDS: AcetylCYSTEINE 8,250 MG in DEXTROSE 5% 1,000 ML IV SCH (10:39)
--- NOTE | 2021-08-21 11:32 | Gastroenterology Progress Note ---
Date of Service August 21, 2021 Assessment & Plan (1) Acetaminophen overdose: Plan: 1. Continue to follow LFTS 2. Continue NAC 3. No GI contraindication to regular diet. Admission and Anticipated Discharge Date Admission Date: August 16, 2021 Supervising Physician Co-Signing Physician Notes Attending attestation I have seen, examined this patient, and agree with the findings and above by our mid-level provider VASQUEZ Watkins, with the following additions: - LFT's stable, continue mucomyst - No signs of ALI or CORRECTION - Follow serologies Subjective 36 yr old male intentional drug OD including tylenol and benzos late on 08/16. Initial Tylenol level 159. _.72 yesterday -> 3 today. On NAD. Awake, alert. Bili normal. INR 1.2. Transaminases continue to elevated: AST 280->239. ALT 779->883. Review of Systems Review of Systems: ROS: Gen: Denies weakness, fevers, weight loss Eyes: No eye redness, or pain, no recent vision changes Resp: No SOB, no cough Cardio: No palpitations/irregular beats, no chest pain GI: No abdominal pain, no nausea/vomiting : Denies pain on urination Skin: No jaundice, itching or new rashes Physical Exam Constitutional: well developed and cooperative Eyes: PERRL, conjunctivae normal, anicteric sclerae Respiratory: normal respiratory effort, lungs clear to auscultation Cardiovascular: RRR, no murmur, no edema Gastrointestinal (Abdomen): normal bowel sounds, soft, nontender, no hepatosplenomegaly Skin: no rashes, warm and dry normal turgor + jaundice Neurologic: PERRL, EOMI, accommodation nl, no face palsy, no dysarthria awake; not confused Psychiatric: A+Ox3, euthymic affect Lymphatic: no cervical or axillary lymphadenopathy Results & Data ([facility]) Vital Signs (Past 12 Hours) Vital Signs Temp Pulse Pulse Resp BP BP Pulse Ox 08/21/21 11:01 36.8 C 65 19 143/95 H 98 08/21/21 07:14 58 L 12 125/70 96 08/21/21 03:00 37.1 C 54 L 18 130/83 95 08/21/21 00:00 73 Laboratory Results WBC 7.4, Hb 12, Hct 35, Plts 178, INR 1.1, Na 138, K 3.5, Cl 106, CO2 25, BUN 8, Cr 0.7, glucose 100. Diagnostic Findings Liver US 08/18: 1. Normal gallbladder. No gallstones. 2. Trace fluid identified in Morison's pouch. This is of doubtful clinical significance. Portal Vein US 08/18/21: No evidence for portal vein thrombosis.
[2021-08-21] MEDS ORDERED: PROPRANOLOL HCL 20 MG TAB PO PRN (12:16)
--- NOTE | 2021-08-21 12:22 | Psychiatric Progress Note ---
Date of Service August 21, 2021 Impression / Recommendations Impression This is a 36 yo man admitted medically following an intentional overdose suicide attempt. Diagnostically consistent with depressive episode of BPAD in the context of recent stressors including worsening mood with poor medication response and financial strain. Acute risk of self-harm remains elevated and high given suicide attempt requiring medical admission, major depressive symptoms, social isolation, access to lethal means, hopelessness, high psychic distress and ongoing ambivalence about being alive. Given elevated risk of harm to self they meet criteria for inpatient psychiatric care for diagnostic clarification, safety/stabilization, development of additional coping skills, medication management and disposition/safety planning once medically stable. If they do not agree to voluntary treatment at that time they will meet criteria for 302 status based on severity of suicide attempt and ongoing modifiable risk factors. 08/21/21: Akathisia improving slightly, will repeat dose of mirtazapine as yesterday was helpful, increase propranolol prn as BP has been elevated and can tolerate increased dose. Remains in need of inpatient psych treatment once medically stable. Still on NAC for ongoing LFT elevation trending up. -Continue 1-on-1 for high risk of harm to self -Do not discharge or allow to leave AMA, contact psych liason if this occurs -Hold psych medications for now given liver injury -Continue to monitor closely for benzo withdrawal -Once medically cleared plan for psychiatric hospitalization (either 201 or 302 status) -Psych liason to contact pt's father and will safety plan regarding limiting access to lethal means (1) Bipolar disorder with severe depression: (2) Antipsychotic-induced akathisia: (3) Depression: (4) Suicidal overdose: (5) Intentional overdose: (6) Transaminitis: (7) Polysubstance overdose: For new akathisia: -Can continue with ativan po 0.5 mg - 1mg BID prn and can titrate as needed to up to 3mg po BID prn for relief -Increased to propranolol 20mg po BID prn and can titrate as needed to up to 40mg po TID prn OR 60mg po BID prn for relief -Added mirtazapine 7.5 mg daily as sometimes this can offer relief, if helpful he can get 7.5 mg per day (higher doses may worsen akathisia) -If all above is unsuccessful could consider trial of cogentin 1mg po BID prn OR clonidine 0.1 mg po BID though limited data to suggest any benefit -If symptoms persist may want to consider neurology input as in refractory cases sometimes parkinson medications can be used though data is limited and in case there remains need to balance any benefits with risk of ongoing medical instability from overdose -Given his level of distress should behavioral emergency occur would use zyprexa 5 mg po or IM BUT NEVER WITHIN 1 HOUR OF IM OR IV BENZODIAZEPINE USE Risk Factors Assessment Do You Have Access To A Gun?: Yes (his father has guns in the home) Interval History Identifying Information 36 yo man living in [facility] with his parents with history of depression, anxiety and BPAD who was admitted medically following suicide attempt via polypharmacy overdose. Psychiatry was consulted for risk assessment and disposition recommendations. Chief Complaint "It's a little better today". Review of Systems Notes slept better, stable appetite Subjective Subjective Patient was seen & assessed and interval progress reviewed. Slept last night, he feels akathisia is a little bit better today but still moving his legs frequently due to restlessness. He felt mirtazapine yesterday helped and ativan helping, not noticing much effect from propranolol. Discussed increasing dose which he agrees with. Still very depressed. Physical Exam Psychiatric Orientation: alert and oriented x 3 Apperance: appropriately dressed and appropriately groomed Eye Contact: good eye contact Motor Behavior: + akathisia (severe) Speech: normal rate/rhythm/volume of speech Affect: + depressed affect and + anxious affect Mood: + depressed mood and + anxious mood (uncomfortable from akathisia) Thought Process: goal directed thought process Thought Content: reality based without delusions Suicidal Thoughts: denies suicidal plan and denies suicidal intent; + reports suicidal thoughts Homicidal Thoughts: denies homicidal thoughts Hallucinations: no auditory hallucinations and no visual hallucinations Cognition: recent memory grossly intact, remote memory grossly intact, attention grossly intact and language grossly intact Estimated Intelligence: consistent with education level Insight: + fair insight Judgement: + fair judgement Vital Signs (Past 24 Hours) Last Vital Signs Temp 36.8 C 08/21/21 11:01 Pulse 65 08/21/21 11:01 Resp 19 08/21/21 11:01 BP 143/95 H 08/21/21 11:01 Pulse Ox 98 08/21/21 11:01 Results & Data ([facility]) Laboratory Results Laboratory Results - last 24 hr 08/20/21 08/20/21 08/20/21 23:54 23:54 23:54 WBC RBC Hgb Hct MCV MCH MCHC RDW Std Deviation RDW Coeff of Esthela Plt Count MPV PT 11.3 INR 1.1 Sodium Potassium Chloride Carbon Dioxide Anion Gap BUN Creatinine Est Cr Clr Drug Dosing Est GFR ( Amer) Est GFR (Non-Af Amer) BUN/Creatinine Ratio Glucose Calcium Phosphorus Magnesium Total Bilirubin Direct Bilirubin AST 239 H ALT 833 H Alkaline Phosphatase Total Protein Albumin Hepatitis A IgM Ab Pending Hep Bs Antigen Pending Hep Bs Ag Confirmation Pending Hep B Core IgM Ab Pending Hepatitis C Ab (EIA) Pending Hep C Ab Signal/Cutoff Pending 08/21/21 08/21/21 08/21/21 05:16 05:16 08:11 WBC 7.45 RBC 4.20 L Hgb 12.3 L Hct 35.6 L MCV 84.8 MCH 29.3 MCHC 34.6 RDW Std Deviation 41.1 RDW Coeff of Esthela 13.4 Plt Count 178 MPV 9.6 PT 11.4 INR 1.1 Sodium 138 Potassium 3.5 Chloride 106 Carbon Dioxide 25 Anion Gap 7 BUN 9 Creatinine 0.70 Est Cr Clr Drug Dosing 149.9 Est GFR ( Amer) 140.7 Est GFR (Non-Af Amer) 121.4 BUN/Creatinine Ratio 12.9 Glucose 91 Calcium 8.7 Phosphorus 3.3 Magnesium 2.0 Total Bilirubin Direct Bilirubin AST ALT Alkaline Phosphatase Total Protein Albumin Hepatitis A IgM Ab Hep Bs Antigen Hep Bs Ag Confirmation Hep B Core IgM Ab Hepatitis C Ab (EIA) Hep C Ab Signal/Cutoff 08/21/21 08:11 WBC RBC Hgb Hct MCV MCH MCHC RDW Std Deviation RDW Coeff of Esthela Plt Count MPV PT INR Sodium Potassium Chloride Carbon Dioxide Anion Gap BUN Creatinine Est Cr Clr Drug Dosing Est GFR ( Amer) Est GFR (Non-Af Amer) BUN/Creatinine Ratio Glucose Calcium Phosphorus Magnesium Total Bilirubin 0.5 Direct Bilirubin 0.1 AST 226 H ALT 878 H Alkaline Phosphatase 36 Total Protein 5.6 L Albumin 3.4 Hepatitis A IgM Ab Hep Bs Antigen Hep Bs Ag Confirmation Hep B Core IgM Ab Hepatitis C Ab (EIA) Hep C Ab Signal/Cutoff Current Inpatient Medications Current Inpatient Medications: Current Inpatient Medications Bismuth Subsalicylate (Bismuth Subsalicylate 262 Mg Chew) 1 tab PO Q4H PRN PRN Reason: Diarrhea Stop: 09/17/21 22:06 Last Admin: 08/19/21 06:41 Dose: 1 tab Documented by: Enoxaparin Sodium (Enoxaparin Inj 40 Mg/0.4 Ml Syr) 40 mg SQ Q24H LACY Stop: 09/15/21 21:59 Last Admin: 08/20/21 22:07 Dose: 40 mg Documented by: Fentanyl Citrate (Fentanyl Citrate 100 Mcg/2 Ml Vial) 50 mcg IV Q2H PRN PRN Reason: Moderate Pain (4,5,6) on NRS Stop: 08/30/21 20:02 Last Admin: 08/20/21 23:31 Dose: 50 mcg Documented by: Acetylcysteine 8,250 mg/ (Dextrose) 1,041.25 mls @ 65.078 mls/hr IV .Q16H LACY Stop: 09/20/21 10:29 Last Admin: 08/21/21 10:39 Dose: 6.25 mg/kg/hr, 65.1 mls/hr Documented by: Lorazepam (Lorazepam 2 Mg/1 Ml Vial) 0.5 mg IV Q6H PRN; Protocol PRN Reason: Agitation Stop: 09/19/21 12:04 Last Admin: 08/20/21 22:19 Dose: 0.5 mg Documented by: Mirtazapine (Mirtazapine Tab 15 Mg Tab) 7.5 mg PO DAILY LACY Stop: 09/20/21 12:14 Propranolol HCl (Propranolol Hcl 20 Mg Tab) 20 mg PO BID PRN PRN Reason: anxiety Stop: 09/19/21 12:14 (1) Suicidal overdose Encounter type: initial encounter Qualified Code(s): T50.902A - Poisoning by unspecified drugs, medicaments and biological substances, intentional self-harm, initial encounter (2) Intentional overdose Encounter type: initial encounter Qualified Code(s): T50.902A - Poisoning by unspecified drugs, medicaments and biological substances, intentional self-harm, initial encounter
[2021-08-21] MEDS: MIRTAZAPINE TAB 15 MG TAB PO SCH (12:42)
[2021-08-21] MEDS: LORazepam 2 MG/1 ML VIAL IV PRN ×2 (14:34→20:42)
--- NOTE | 2021-08-21 14:57 | Hospitalist Progress Note ---
Date of Service August 21, 2021 Assessment & Plan (1) Acute respiratory failure: (2) Intentional overdose: (3) Suicidal overdose: (4) Tylenol toxicity: (5) Elevated CK: Plan: 36-year-old male who has significant past medical history of depression, anxiety and anuja who presents to ED 08/16 after sustaining what appears to be an intentional overdose on multiple prescription medications with suicide attempt prior to arrival. He is being managed for the following: #. Acute respiratory failure: Likely secondary to intentional overdose, was intubated, extubated 08/17, on room air. Resolved #. Polypharmacy overdose #. Tylenol toxicity #. Transaminitis: AST and ALT remains elevated, INR better. Continue to monitor. f/u INR and LFTs. GI evaluated, hepatitis panel, c/w nac infusion until ALT improves by 50% from its peak. #. Prolonged QTC #. Suicidal overdose: Psy on board, can't leave AMA. 1:1. Hold psych meds for now. #. Toxic encephalopathy: Admitting CT Head w/ no Ac. findings. Secondary to polypharmacy overdose, resolved. Patient presented with polypharmacy suicidal overdose, was intubated at the field. At bedside exam 08/18, patient was AOx3, reported that he emptied half total of 1 months prescription of Seroquel, took 8 mg of clonazepam and 12 mg Ativan, 2 may be more than 30 tablets of Tylenol/ibuprofen/baby aspirin each prior to arrival. Salicylate level WNL, Tylenol level trended down, UDS benzo positive. Patient currently alert and oriented x3, on room air. LFT uptrending though rate slowed down lately, GI on board, hepatitis panel, c/w nac infusion. Patient on NAC protocol, continue to monitor LFT, Poison control on board. Latest EKG w/ QRS 88 and QTc 404. Repeat EKG prn. Prior attending discussed the case with poison control w/ following recommendation: * Recommends initiating N-acetylcysteine 21-hour protocol at 1, 4-hour and a 16- hour * Recommend repeating LFT, coags and Tylenol level 12 hours into the 16-hour bag * Poison control will call to follow-up * Further recommended EKGs every 6 hours due to likely ingestion of antipsychotics * If EKG reveals QRS greater than 120 treat with sodium bicarb; if QTC greater than 500 MS recommend treating with magnesium sulfate 2 g IV, recommend keeping mag greater than 2 and K > 4.5 #. Elevated CK #. Electrolytes abnormalities Secondary to polypharmacy overdose, trending down, continue to monitor. Monitor renal fxn, bmp in AM. Monitor and replete electrolytes. #. Akathisia Patient started having restless feeling in his both legs the evening of 08/19, BLE US Doppler negative for DVT. Patient was pacing in the room in the morning of 08/20, stated he cannot stay at one place. Likely new akathisia secondary to the recent antipsychotic overdose of the background of overdosed benzodiazepine wearing off. Improving restlessness/akathisia, says mirtazapine helped. Ativan prn, propranolol BD prn. Remeron 7.5 mg daily. Appreciate psychiatric recommendations 08/20 for akathisia. Should behavioral emergency occur would use zyprexa 5 mg po or IM BUT NEVER WITHIN 1 HOUR OF IM OR IV BENZODIAZEPINE USE #. Depression/Suicidal attempt/Anxiet: Psychiatry on board, ? may need inpatient psy admission upon medical stability. DVT ppx: sc Lovenox Dispo: PCU level of care, can't leave AMA. Will need psychiatric admission after medical clearance. 08/18: Updated patient's mother and patient at bedside, answered all the questions, they voiced understanding and were agreeable to the plan of care. Admission and Anticipated Discharge Date Admission Date: August 16, 2021 Subjective Patient seen and examined at bedside as a follow-up of polypharmacy overdose x intentional, suicidal overdose and Tylenol toxicity and elevated CK. Patient was lying in bed w/ mild b/l leg akathisia, on room air, mild restless, had worse akathisia overnight which got better by midnight per Pt. Pt reports eating ok. Otherwise patient denies any headache or dizziness or chest pain or palpitation or belly pain or nausea or vomiting. Discussed with psychiatry, appreciate recommendations. Physical Exam Physical Exam: GENERAL: Alert and oriented x3. mild distress, ble akathisia, on RA. HEENT: No pallor, no icterus. Pupils equal, round and reactive to light. Oral mucosa moist. NECK: No JVD, no neck masses. HEART: S1 and S2 heard. Regular rate and rhythm. No murmur, no gallop. RESPIRATORY SYSTEM: Normal AP diameter. No accessory muscle use. No wheezing, no crackles. ABDOMEN: Soft, bowel sounds present, nontender, no distention. CENTRAL NERVOUS SYSTEM: No facial droop. Speech is clear. Obeys simple commands. Moves extremities. EXTREMITIES: No edema, no erythema seen. Results & Data Results & Data ([facility]) Vital Signs (Past 12 Hours) Vital Signs Temp Pulse Pulse Resp BP BP Pulse Ox 08/21/21 14:29 73 18 134/89 97 08/21/21 11:01 36.8 C 65 19 143/95 H 98 08/21/21 07:14 58 L 12 125/70 96 08/21/21 03:00 37.1 C 54 L 18 130/83 95 (1) Acute respiratory failure Respiratory failure complication: unspecified whether with hypoxia or hypercapnia Qualified Code(s): J96.00 - Acute respiratory failure, unspecified whether with hypoxia or hypercapnia (2) Intentional overdose Encounter type: initial encounter Qualified Code(s): T50.902A - Poisoning by unspecified drugs, medicaments and biological substances, intentional self-harm, initial encounter (3) Suicidal overdose Encounter type: initial encounter Qualified Code(s): T50.902A - Poisoning by unspecified drugs, medicaments and biological substances, intentional self-harm, initial encounter (4) Tylenol toxicity Encounter type: initial encounter Injury intent: intentional self-harm Qualified Code(s): T39.1X2A - Poisoning by 4-Aminophenol derivatives, intentional self-harm, initial encounter
[2021-08-21 15:07] LABS: INR 1.1 (0.9-1.1); Prothrombin Time 11.9 Seconds (9.0-12.0)
[2021-08-21 15:48] LABS: Alanine Aminotransferase 909 U/L (7-52); Aspartate Aminotransferase 207 U/L (13-39)
[2021-08-21] MEDS: ENOXAPARIN INJ 40 MG/0.4 ML SYR SQ SCH (22:42)
[2021-08-21 22:48] LABS: INR 1.1 (0.9-1.1); Prothrombin Time 11.4 Seconds (9.0-12.0)
[2021-08-21 22:57] LABS: Aspartate Aminotransferase 155 U/L (13-39)
[2021-08-21 23:13] LABS: Alanine Aminotransferase 848 U/L (7-52)
[2021-08-22] MEDS: AcetylCYSTEINE 8,250 MG in DEXTROSE 5% 1,000 ML IV SCH ×2 (02:43→11:52)
[2021-08-22 05:32] LABS: INR 1.1 (0.9-1.1); Prothrombin Time 11.3 Seconds (9.0-12.0)
[2021-08-22 05:41] LABS: BUN Creatinine Ratio 15.7 (10-20); Calcium 8.8 mg/dl (8.5-10.1); Creatinine Clr Calc Pharmacy 149.9 ml/min; Est GFR (African American) 140.7 ml/min; Est GFR (Non-African American) 121.4 ml/min; Potassium 3.2 mmol/L (3.5-5.1)
[2021-08-22 05:59] LABS: Albumin Level 3.4 gm/dl (3.4-5.0); Bilirubin Direct 0.1 mg/dl (0-0.2); Bilirubin,Total 0.5 mg/dl (0.2-1.0); Phosphorus 3.6 mg/dl (2.5-4.9); Total Protein 5.6 gm/dl (6.0-8.3)
[2021-08-22 06:22] LABS: HBSAG NON-REACTIVE (NON-REACTIVE); Hepatitis A Antibody IgM NON-REACTIVE (NON-REACTIVE); Hepatitis B Core Antibody IgM NON-REACTIVE (NON-REACTIVE)
[2021-08-22] MEDS: POTASSIUM CHLORIDE CRTAB 20 MEQ TABCR PO SCH ×2 (08:35→10:22)
[2021-08-22] MEDS: MIRTAZAPINE TAB 15 MG TAB PO SCH (08:35)
[2021-08-22] MEDS: fentaNYL citrate 100 MCG/2 ML VIAL IV PRN ×2 (08:36→17:21)
--- NOTE | 2021-08-22 11:15 | Psychiatric Progress Note ---
Date of Service August 22, 2021 Impression / Recommendations Impression This is a 36 yo man admitted medically following an intentional overdose suicide attempt. Diagnostically consistent with depressive episode of BPAD in the context of recent stressors including worsening mood with poor medication response and financial strain. Acute risk of self-harm remains elevated and high given suicide attempt requiring medical admission, major depressive symptoms, social isolation, access to lethal means, hopelessness, high psychic distress and ongoing ambivalence about being alive. Given elevated risk of harm to self they meet criteria for inpatient psychiatric care for diagnostic clarification, safety/stabilization, development of additional coping skills, medication management and disposition/safety planning once medically stable. If they do not agree to voluntary treatment at that time they will meet criteria for 302 status based on severity of suicide attempt and ongoing modifiable risk factors. 08/22/21: Akathisia has improved. Remains anxious and very depressed with ongoing SI remains on 1-on-1. Remains in need of inpatient psych treatment once medically stable. -Continue 1-on-1 for high risk of harm to self -Do not discharge or allow to leave AMA, contact psych liason if this occurs -Hold psych medications for now given liver injury -Once medically cleared plan for psychiatric hospitalization (either 201 or 302 status) (1) Bipolar disorder with severe depression: (2) Antipsychotic-induced akathisia: (3) Depression: (4) Suicidal overdose: (5) Intentional overdose: (6) Transaminitis: (7) Polysubstance overdose: see above Risk Factors Assessment Do You Have Access To A Gun?: Yes (his father has guns in the home) Interval History Identifying Information 36 yo man living in [facility] with his parents with history of depression, anxiety and BPAD who was admitted medically following suicide attempt via polypharmacy overdose. Psychiatry was consulted for risk assessment and disposition recommendations. Chief Complaint "I don't see any way out of the depression". Review of Systems Notes insomnia, stable appetite Subjective Subjective Patient was seen & assessed and interval progress reviewed. He reports no further symptoms of akathisia. Still having some anxiety and restlessness but he reports this is baseline for him. Experiencing insomnia, would like to restart seroquel, discussed plan of waiting until his liver function improves which he is ok with. Can continue to ask for ativan if needed for insomnia/anxiety. He agrees with stopping mirtazapine since akathisia has resolved. Continues to feel very depressed and hopeless with ongoing active SI but without a plan. He would like to seek voluntary inpt psych tx at a facility that offers ECT as multiple prior med trials have been unsuccessful. Reviewed this process can start once he's medically stable. Physical Exam Psychiatric Orientation: alert and oriented x 3 Apperance: appropriately dressed and appropriately groomed Eye Contact: good eye contact Motor Behavior: no abnormal motor movements Speech: normal rate/rhythm/volume of speech Affect: + depressed affect and + flat affect Mood: + depressed mood and + anxious mood Thought Process: goal directed thought process Thought Content: reality based without delusions Suicidal Thoughts: denies suicidal plan and denies suicidal intent; + reports suicidal thoughts Homicidal Thoughts: denies homicidal thoughts Hallucinations: no auditory hallucinations and no visual hallucinations Cognition: recent memory grossly intact, remote memory grossly intact, attention grossly intact and language grossly intact Estimated Intelligence: consistent with education level Insight: + fair insight Judgement: + fair judgement Vital Signs (Past 24 Hours) Last Vital Signs Temp 37.2 C 08/22/21 08:00 Pulse 76 08/22/21 08:23 Resp 18 08/22/21 08:00 BP 158/92 H 08/22/21 08:00 Pulse Ox 97 08/22/21 08:00 Results & Data ([facility]) Laboratory Results Laboratory Results - last 24 hr 08/20/21 08/20/21 08/21/21 07:14 23:54 14:45 PT 11.9 INR 1.1 Sodium Potassium Chloride Carbon Dioxide Anion Gap BUN Creatinine Est Cr Clr Drug Dosing Est GFR ( Amer) Est GFR (Non-Af Amer) BUN/Creatinine Ratio Glucose Calcium Phosphorus Magnesium Total Bilirubin Direct Bilirubin AST ALT Alkaline Phosphatase Total Protein Albumin EBV Capsid Ag IgG Ab Pending EBV Capsid Ag IgM Ab Pending EBV EA Restrict+Diffuse Pending EBV Nuclear Antigen Ab Pending EBV Antibody Interp Pending Hepatitis A IgM Ab NON-REACTIVE Hep Bs Antigen NON-REACTIVE Hep Bs Ag Confirmation TNP Hep B Core IgM Ab NON-REACTIVE Hepatitis C Ab (EIA) NON-REACTIVE Hep C Ab Signal/Cutoff 0.01 08/21/21 08/21/21 08/21/21 14:45 22:24 22:24 PT 11.4 INR 1.1 Sodium Potassium Chloride Carbon Dioxide Anion Gap BUN Creatinine Est Cr Clr Drug Dosing Est GFR ( Amer) Est GFR (Non-Af Amer) BUN/Creatinine Ratio Glucose Calcium Phosphorus Magnesium Total Bilirubin Direct Bilirubin AST 207 H 155 H ALT 909 H 848 H Alkaline Phosphatase Total Protein Albumin EBV Capsid Ag IgG Ab EBV Capsid Ag IgM Ab EBV EA Restrict+Diffuse EBV Nuclear Antigen Ab EBV Antibody Interp Hepatitis A IgM Ab Hep Bs Antigen Hep Bs Ag Confirmation Hep B Core IgM Ab Hepatitis C Ab (EIA) Hep C Ab Signal/Cutoff 08/22/21 08/22/21 04:57 04:57 PT 11.3 INR 1.1 Sodium 138 Potassium 3.2 L Chloride 106 Carbon Dioxide 25 Anion Gap 7 BUN 11 Creatinine 0.70 Est Cr Clr Drug Dosing 149.9 Est GFR ( Amer) 140.7 Est GFR (Non-Af Amer) 121.4 BUN/Creatinine Ratio 15.7 Glucose 87 Calcium 8.8 Phosphorus 3.6 Magnesium 2.0 Total Bilirubin 0.5 Direct Bilirubin 0.1 AST 111 H ALT 726 H Alkaline Phosphatase 35 Total Protein 5.6 L Albumin 3.4 EBV Capsid Ag IgG Ab EBV Capsid Ag IgM Ab EBV EA Restrict+Diffuse EBV Nuclear Antigen Ab EBV Antibody Interp Hepatitis A IgM Ab Hep Bs Antigen Hep Bs Ag Confirmation Hep B Core IgM Ab Hepatitis C Ab (EIA) Hep C Ab Signal/Cutoff Current Inpatient Medications Current Inpatient Medications: Current Inpatient Medications Bismuth Subsalicylate (Bismuth Subsalicylate 262 Mg Chew) 1 tab PO Q4H PRN PRN Reason: Diarrhea Stop: 09/17/21 22:06 Last Admin: 08/19/21 06:41 Dose: 1 tab Documented by: Enoxaparin Sodium (Enoxaparin Inj 40 Mg/0.4 Ml Syr) 40 mg SQ Q24H LACY Stop: 09/15/21 21:59 Last Admin: 08/21/21 22:42 Dose: 40 mg Documented by: Fentanyl Citrate (Fentanyl Citrate 100 Mcg/2 Ml Vial) 50 mcg IV Q2H PRN PRN Reason: Moderate Pain (4,5,6) on NRS Stop: 08/30/21 20:02 Last Admin: 08/22/21 08:36 Dose: 50 mcg Documented by: Acetylcysteine 8,250 mg/ (Dextrose) 1,041.25 mls @ 65.078 mls/hr IV .Q16H LACY Stop: 09/20/21 10:29 Last Infusion: 08/22/21 02:43 Dose: Infused Documented by: Lorazepam (Lorazepam 2 Mg/1 Ml Vial) 0.5 mg IV Q6H PRN; Protocol PRN Reason: Agitation Stop: 09/19/21 12:04 Last Admin: 08/21/21 20:42 Dose: 0.5 mg Documented by: Mirtazapine (Mirtazapine Tab 15 Mg Tab) 7.5 mg PO DAILY LACY Stop: 09/20/21 12:14 Last Admin: 08/22/21 08:35 Dose: 7.5 mg Documented by: Propranolol HCl (Propranolol Hcl 20 Mg Tab) 20 mg PO BID PRN PRN Reason: anxiety Stop: 09/19/21 12:14 (1) Suicidal overdose Encounter type: initial encounter Qualified Code(s): T50.902A - Poisoning by unspecified drugs, medicaments and biological substances, intentional self-harm, initial encounter (2) Intentional overdose Encounter type: initial encounter Qualified Code(s): T50.902A - Poisoning by unspecified drugs, medicaments and biological substances, intentional self-harm, initial encounter
[2021-08-22] MEDS: LORazepam 2 MG/1 ML VIAL IV PRN (12:01)
[2021-08-22 13:46] LABS: CMV IgG Antibody <0.60 U/mL; CMV IgM Antibody <30.00 AU/mL; HBSAG NON-REACTIVE (NON-REACTIVE); Hepatitis A Antibody IgM NON-REACTIVE (NON-REACTIVE); Hepatitis B Core Antibody IgM NON-REACTIVE (NON-REACTIVE)
[2021-08-22 14:26] LABS: EBV Nuclear Ag Antibody >600.00 U/mL; EBV Virus Capsid Ag IgG Ab >750.00 U/mL; Epstein Barr Virus Early Ag Ab <9.00 U/mL
--- NOTE | 2021-08-22 17:03 | Hospitalist Progress Note ---
Date of Service August 22, 2021 Assessment & Plan (1) Acute respiratory failure: (2) Intentional overdose: (3) Suicidal overdose: (4) Tylenol toxicity: (5) Elevated CK: Plan: 36-year-old male who has significant past medical history of depression, anxiety and anuja who presents to ED 08/16 after sustaining what appears to be an intentional overdose on multiple prescription medications with suicide attempt prior to arrival. He is being managed for the following: #. Acute respiratory failure: Likely secondary to intentional overdose, was intubated, extubated 08/17, on room air. Resolved #. Polypharmacy overdose #. Tylenol toxicity #. Transaminitis: AST and ALT remains elevated, INR better. Continue to monitor. f/u INR and LFTs. GI evaluated, hepatitis panel, c/w nac infusion until ALT improves by 50% from its peak. #. Prolonged QTC #. Suicidal overdose: Psy on board, can't leave AMA. 1:1. Hold psych meds for now. #. Toxic encephalopathy: Admitting CT Head w/ no Ac. findings. Secondary to polypharmacy overdose, resolved. Patient presented with polypharmacy suicidal overdose, was intubated at the field. At bedside exam 08/18, patient was AOx3, reported that he emptied half total of 1 months prescription of Seroquel, took 8 mg of clonazepam and 12 mg Ativan, 2 may be more than 30 tablets of Tylenol/ibuprofen/baby aspirin each prior to arrival. Salicylate level WNL, Tylenol level trended down, UDS benzo positive. Patient currently alert and oriented x3, on room air. LFT plateaued lately, GI on board, hepatitis panel - negative, c/w nac infusion. Continue to monitor LFT, Poison control on board. Latest EKG on 08/18 w/ QRS 88 and QTc 404. Repeat EKG prn. c/w to monitor, supportive Mx. #. Elevated CK #. Electrolytes abnormalities Secondary to polypharmacy overdose, trending down, continue to monitor. Monitor renal fxn, bmp in AM. Monitor and replete electrolytes. #. Akathisia Patient started having restless feeling in his both legs the evening of 08/19, BLE US Doppler negative for DVT. Patient was pacing in the room in the morning of 08/20, stated he cannot stay at one place. Likely new akathisia secondary to the recent antipsychotic overdose of the background of overdosed benzodiazepine wearing off. Akathisia improved, mirtazipine dcd. Ativan prn, propranolol BD prn. Appreciate psychiatric recommendations 08/20 for akathisia. Should behavioral emergency occur would use zyprexa 5 mg po or IM BUT NEVER WITHIN 1 HOUR OF IM OR IV BENZODIAZEPINE USE #. Depression/Suicidal attempt/Anxiet: Psychiatry on board, ? may need inpatient psy admission upon medical stability. DVT ppx: sc Lovenox Dispo: PCU level of care, can't leave AMA. Will need psychiatric admission after medical clearance. 08/18: Updated patient's mother and patient at bedside, answered all the questions, they voiced understanding and were agreeable to the plan of care. Admission and Anticipated Discharge Date Admission Date: August 16, 2021 Subjective Patient seen and examined at bedside as a follow-up of polypharmacy overdose x intentional, suicidal overdose and Tylenol toxicity and elevated CK. Patient was lying in bed, NAD, on room air, reports akathisia has resolved, no new acute events overnight, patient reports feeling anxious and depressed. Pt reports eating ok. Patient denies any headache or dizziness or chest pain or palpitation or belly pain or nausea or vomiting. Pt's NAC infusion was not running, communicated w/ RN and pharmacy. Will continue w/ NAC infusion for now. Discussed with psychiatry, appreciate recommendations. DC mirtazapine, c/w propranolol bd prn. Physical Exam Physical Exam: GENERAL: Alert and oriented x3. nad, on RA. HEENT: No pallor, no icterus. Pupils equal, round and reactive to light. Oral mucosa moist. NECK: No JVD, no neck masses. HEART: S1 and S2 heard. Regular rate and rhythm. No murmur, no gallop. RESPIRATORY SYSTEM: Normal AP diameter. No accessory muscle use. No wheezing, no crackles. ABDOMEN: Soft, bowel sounds present, nontender, no distention. CENTRAL NERVOUS SYSTEM: No facial droop. Speech is clear. Obeys simple commands. Moves extremities. EXTREMITIES: No edema, no erythema seen. Results & Data Results & Data ([facility]) Vital Signs (Past 12 Hours) Vital Signs Temp Pulse Pulse Resp BP Pulse Ox 08/22/21 16:00 37.3 C 60 19 136/79 98 06/01/22 12:05 36.8 C 71 18 145/83 H 95 08/22/21 08:23 76 08/22/21 08:00 37.2 C 62 18 158/92 H 97 (1) Acute respiratory failure Respiratory failure complication: unspecified whether with hypoxia or hypercapnia Qualified Code(s): J96.00 - Acute respiratory failure, unspecified whether with hypoxia or hypercapnia (2) Intentional overdose Encounter type: initial encounter Qualified Code(s): T50.902A - Poisoning by unspecified drugs, medicaments and biological substances, intentional self-harm, initial encounter (3) Suicidal overdose Encounter type: initial encounter Qualified Code(s): T50.902A - Poisoning by unspecified drugs, medicaments and biological substances, intentional self-harm, initial encounter (4) Tylenol toxicity Encounter type: initial encounter Injury intent: intentional self-harm Qualified Code(s): T39.1X2A - Poisoning by 4-Aminophenol derivatives, intentional self-harm, initial encounter
--- NOTE | 2021-08-22 19:34 | Communication Note ---
Date of Service: August 22, 2021 Poison control had recommended stopping N acetylcysteine infusion for Tylenol toxicity given improving LFTs as per conversation with RN last night. Information may not have been communicated to morning provider as per RN.
[2021-08-22] MEDS: ENOXAPARIN INJ 40 MG/0.4 ML SYR SQ SCH (22:58)
[2021-08-23 05:41] LABS: Prothrombin Time 10.7 Seconds (9.0-12.0)
[2021-08-23 05:58] LABS: BUN Creatinine Ratio 18.8 (10-20); Calcium 9.4 mg/dl (8.5-10.1); Creatinine Clr Calc Pharmacy 131.2 ml/min; Est GFR (African American) 133.2 ml/min; Est GFR (Non-African American) 114.9 ml/min; Potassium 3.7 mmol/L (3.5-5.1)
[2021-08-23 06:13] LABS: Albumin Level 3.7 gm/dl (3.4-5.0); Bilirubin Direct 0.1 mg/dl (0-0.2); Bilirubin,Total 0.4 mg/dl (0.2-1.0); Phosphorus 4.3 mg/dl (2.5-4.9); Total Protein 6.1 gm/dl (6.0-8.3)
[2021-08-23] MEDS ORDERED: POTASSIUM CHLORIDE CRTAB 20 MEQ TABCR PO STA (07:44)
[2021-08-23] MEDS: LORazepam 2 MG/1 ML VIAL IV PRN ×2 (09:43→18:06)
--- NOTE | 2021-08-23 10:46 | Psychiatric Progress Note ---
Date of Service August 23, 2021 Impression / Recommendations Impression This is a 36 yo man admitted medically following an intentional overdose suicide attempt. Diagnostically consistent with depressive episode of BPAD in the context of recent stressors including worsening mood with poor medication response and financial strain. Acute risk of self-harm remains elevated and high given suicide attempt requiring medical admission, major depressive symptoms, social isolation, access to lethal means, hopelessness, high psychic distress and ongoing ambivalence about being alive. Given elevated risk of harm to self they meet criteria for inpatient psychiatric care for diagnostic clarification, safety/stabilization, development of additional coping skills, medication management and disposition/safety planning once medically stable. If they do not agree to voluntary treatment at that time they will meet criteria for 302 status based on severity of suicide attempt and ongoing modifiable risk factors. 08/23/21: Mild akathisia today, reviewed option of ativan and propranolol available for this. Remains anxious and very depressed with ongoing SI remains on 1-on-1. Remains in need of inpatient psych treatment once medically stable. -Continue 1-on-1 for high risk of harm to self -Do not discharge or allow to leave AMA, contact psych liason if this occurs -Hold psych medications for now given liver injury -Once medically cleared plan for psychiatric hospitalization (either 201 or 302 status) (1) Bipolar disorder with severe depression: (2) Antipsychotic-induced akathisia: (3) Depression: (4) Suicidal overdose: (5) Intentional overdose: (6) Transaminitis: (7) Polysubstance overdose: see above Risk Factors Assessment Do You Have Access To A Gun?: Yes (his father has guns in the home) Interval History Identifying Information 36 yo man living in [facility] with his parents with history of depression, anxiety and BPAD who was admitted medically following suicide attempt via polypharmacy overdose. Psychiatry was consulted for risk assessment and disposition recommendations. Chief Complaint "I feel really hopeless". Review of Systems Notes still with insomnia, stable appetite Subjective Subjective Patient was seen & assessed and interval progress reviewed. Slightly more akathisia today, moving his legs repetitively but he feels it is not very bothersome. Reviewed option to ask for prn ativan or propranolol for this. Notes he got some sleep last night. Reviewed that ativan remains safest option for now as still on telemetry and with LFT elevation. Notes he continues to feel very hopeless with depression and anxiety. Also feel bored but continues to decline any distraction activities or therapeutic activities that are offered. He knows he can alert medical floor staff if he would like us to bring him anything/changes his mind about wanting any of this. Physical Exam Psychiatric Orientation: alert and oriented x 3 Apperance: appropriately dressed and appropriately groomed Eye Contact: good eye contact Motor Behavior: no abnormal motor movements and + akathisia (mild) Speech: normal rate/rhythm/volume of speech Affect: + depressed affect and + flat affect Mood: + depressed mood and + anxious mood Thought Process: goal directed thought process Thought Content: reality based without delusions Suicidal Thoughts: denies suicidal plan and denies suicidal intent; + reports suicidal thoughts Homicidal Thoughts: denies homicidal thoughts Hallucinations: no auditory hallucinations and no visual hallucinations Cognition: recent memory grossly intact, remote memory grossly intact, attention grossly intact and language grossly intact Estimated Intelligence: consistent with education level Insight: + fair insight Judgement: + fair judgement Vital Signs (Past 24 Hours) Last Vital Signs Temp 36.6 C 08/23/21 07:56 Pulse 49 L 08/23/21 08:00 Resp 14 08/23/21 07:56 BP 158/79 H 08/23/21 07:56 Pulse Ox 96 08/23/21 07:56 Results & Data ([facility]) Laboratory Results Laboratory Results - last 24 hr 08/19/21 08/20/21 08/23/21 14:48 07:14 05:01 PT INR Sodium 137 Potassium 3.7 Chloride 106 Carbon Dioxide 24 Anion Gap 7 BUN 15 Creatinine 0.80 Est Cr Clr Drug Dosing 131.2 Est GFR ( Amer) 133.2 Est GFR (Non-Af Amer) 114.9 BUN/Creatinine Ratio 18.8 Glucose 89 Calcium 9.4 Phosphorus 4.3 Magnesium 2.0 Total Bilirubin 0.4 Direct Bilirubin 0.1 AST 43 H ALT 520 H Alkaline Phosphatase 36 Total Protein 6.1 Albumin 3.7 CMV IgM Ab <30.00 CMV IgG Ab/TORCH <0.60 EBV Capsid Ag IgG Ab >750.00 H EBV Capsid Ag IgM Ab <36.00 EBV EA Restrict+Diffuse <9.00 EBV Nuclear Antigen Ab >600.00 H EBV Antibody Interp SEE NOTE Hepatitis A IgM Ab NON-REACTIVE Hep Bs Antigen NON-REACTIVE Hep Bs Ag Confirmation TNP Hep B Core IgM Ab NON-REACTIVE Hepatitis C Ab (EIA) NON-REACTIVE Hep C Ab Signal/Cutoff 0.01 08/23/21 05:01 PT 10.7 INR 1.0 Sodium Potassium Chloride Carbon Dioxide Anion Gap BUN Creatinine Est Cr Clr Drug Dosing Est GFR ( Amer) Est GFR (Non-Af Amer) BUN/Creatinine Ratio Glucose Calcium Phosphorus Magnesium Total Bilirubin Direct Bilirubin AST ALT Alkaline Phosphatase Total Protein Albumin CMV IgM Ab CMV IgG Ab/TORCH EBV Capsid Ag IgG Ab EBV Capsid Ag IgM Ab EBV EA Restrict+Diffuse EBV Nuclear Antigen Ab EBV Antibody Interp Hepatitis A IgM Ab Hep Bs Antigen Hep Bs Ag Confirmation Hep B Core IgM Ab Hepatitis C Ab (EIA) Hep C Ab Signal/Cutoff Current Inpatient Medications Current Inpatient Medications: Current Inpatient Medications Bismuth Subsalicylate (Bismuth Subsalicylate 262 Mg Chew) 1 tab PO Q4H PRN PRN Reason: Diarrhea Stop: 09/17/21 22:06 Last Admin: 08/19/21 06:41 Dose: 1 tab Documented by: Enoxaparin Sodium (Enoxaparin Inj 40 Mg/0.4 Ml Syr) 40 mg SQ Q24H LACY Stop: 09/15/21 21:59 Last Admin: 08/22/21 22:58 Dose: 40 mg Documented by: Fentanyl Citrate (Fentanyl Citrate 100 Mcg/2 Ml Vial) 50 mcg IV Q2H PRN PRN Reason: Moderate Pain (4,5,6) on NRS Stop: 08/30/21 20:02 Last Admin: 08/22/21 17:21 Dose: 50 mcg Documented by: Lorazepam (Lorazepam 2 Mg/1 Ml Vial) 0.5 mg IV Q6H PRN; Protocol PRN Reason: Agitation Stop: 09/19/21 12:04 Last Admin: 08/23/21 09:43 Dose: 0.5 mg Documented by: Propranolol HCl (Propranolol Hcl 20 Mg Tab) 20 mg PO BID PRN PRN Reason: anxiety Stop: 09/19/21 12:14 (1) Suicidal overdose Encounter type: initial encounter Qualified Code(s): T50.902A - Poisoning by unspecified drugs, medicaments and biological substances, intentional self-harm, initial encounter (2) Intentional overdose Encounter type: initial encounter Qualified Code(s): T50.902A - Poisoning by unspecified drugs, medicaments and biological substances, intentional self-harm, initial encounter
[2021-08-23] MEDS ORDERED: LORazepam 0.5 MG TAB PO STA (14:02)
--- NOTE | 2021-08-23 14:40 | Electrocardiogram Report ---
Test Reason : Blood Pressure : / mmHG Vent. 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
--- NOTE | 2021-08-23 17:43 | Hospitalist Progress Note ---
Date of Service August 23, 2021 Assessment & Plan (1) Acute respiratory failure: (2) Intentional overdose: (3) Suicidal overdose: (4) Tylenol toxicity: (5) Elevated CK: Plan: 36-year-old male who has significant past medical history of depression, anxiety and anuja who presents to ED 08/16 after sustaining what appears to be an intentional overdose on multiple prescription medications with suicide attempt prior to arrival. He is being managed for the following: #. Acute respiratory failure: Likely secondary to intentional overdose, was intubated, extubated 08/17, on room air. Resolved #. Polypharmacy overdose #. Tylenol toxicity #. Transaminitis: AST and ALT remains elevated, INR better. Continue to monitor. f/u INR and LFTs. GI evaluated, hepatitis panel, NAC infusion discontinued with poison control recommendation, monitor ALT. #. Prolonged QTC #. Suicidal overdose: Psy on board, can't leave AMA. 1:1. Hold psych meds for now. #. Toxic encephalopathy: Admitting CT Head w/ no Ac. findings. Secondary to polypharmacy overdose, resolved. Patient presented with polypharmacy suicidal overdose, was intubated at the field. At bedside exam 08/18, patient was AOx3, reported that he emptied half total of 1 months prescription of Seroquel, took 8 mg of clonazepam and 12 mg Ativan, 2 may be more than 30 tablets of Tylenol/ibuprofen/baby aspirin each prior to arrival. Salicylate level WNL, Tylenol level trended down, UDS benzo positive. Patient currently alert and oriented x3, on room air. LFT trending down, GI on board, hepatitis panel - negative. Continue to monitor LFT, Poison control discontinued NAC infusion Latest EKG on 08/23 w/ QRS 94 and QTc 381. Discontinue telemetry. c/w to monitor, supportive Mx. #. Elevated CK #. Electrolytes abnormalities Secondary to polypharmacy overdose, trending down, continue to monitor. Monitor renal fxn, bmp in AM. Monitor and replete electrolytes. #. Akathisia Patient started having restless feeling in his both legs the evening of 08/19, BLE US Doppler negative for DVT. Patient was pacing in the room in the morning of 08/20, stated he cannot stay at one place. Likely new akathisia secondary to the recent antipsychotic overdose of the background of overdosed benzodiazepine wearing off. Akathisia improved Ativan prn, propranolol BD prn. Titrating dose on propanolol per psychiatry recommendation. Appreciate psychiatric recommendations 08/20 for akathisia. Should behavioral emergency occur would use zyprexa 5 mg po or IM BUT NEVER WITHIN 1 HOUR OF IM OR IV BENZODIAZEPINE USE #. Depression/Suicidal attempt/Anxiet: Psychiatry on board, ? may need inpatient psy admission upon medical stability. DVT ppx: sc Lovenox Dispo: MedSurg,, can't leave AMA. Will need psychiatric admission after medical clearance. 08/18: Updated patient's mother and patient at bedside, answered all the questions, they voiced understanding and were agreeable to the plan of care. Admission and Anticipated Discharge Date Admission Date: August 16, 2021 Subjective Patient seen and examined at bedside as a follow-up of polypharmacy overdose x intentional, suicidal overdose and Tylenol toxicity and elevated CK. Patient was lying in bed, NAD, on room air, reports akathisia has resolved, reports more anxiety overnight, and some akathisia in the morning, patient reports feeling anxious at bedside exam and would like " some medication". pt reports eating ok. Patient denies any headache or dizziness or chest pain or palpitation or belly pain or nausea or vomiting. Pt's NAC infusion was not running, communicated w/ RN and pharmacy. Will continue w/ NAC infusion for now. Upped the dose of propanolol, one-time dose of extra Ativan. Physical Exam Physical Exam: GENERAL: Alert and oriented x3. nad, on RA. HEENT: No pallor, no icterus. Pupils equal, round and reactive to light. Oral mucosa moist. NECK: No JVD, no neck masses. HEART: S1 and S2 heard. Regular rate and rhythm. No murmur, no gallop. RESPIRATORY SYSTEM: Normal AP diameter. No accessory muscle use. No wheezing, no crackles. ABDOMEN: Soft, bowel sounds present, nontender, no distention. CENTRAL NERVOUS SYSTEM: No facial droop. Speech is clear. Obeys simple commands. Moves extremities. EXTREMITIES: No edema, no erythema seen. Results & Data Results & Data ([facility]) Vital Signs (Past 12 Hours) Vital Signs Temp Pulse Pulse Resp BP Pulse Ox 08/23/21 15:57 37.1 C 59 L 12 130/70 96 08/23/21 11:56 37.1 C 76 18 135/72 96 08/23/21 08:00 49 L 08/23/21 07:56 36.6 C 73 14 158/79 H 96 (1) Acute respiratory failure Respiratory failure complication: unspecified whether with hypoxia or hypercapnia Qualified Code(s): J96.00 - Acute respiratory failure, unspecified whether with hypoxia or hypercapnia (2) Intentional overdose Encounter type: initial encounter Qualified Code(s): T50.902A - Poisoning by unspecified drugs, medicaments and biological substances, intentional self-harm, initial encounter (3) Suicidal overdose Encounter type: initial encounter Qualified Code(s): T50.902A - Poisoning by unspecified drugs, medicaments and biological substances, intentional self-harm, initial encounter (4) Tylenol toxicity Encounter type: initial encounter Injury intent: intentional self-harm Qualified Code(s): T39.1X2A - Poisoning by 4-Aminophenol derivatives, intentional self-harm, initial encounter
[2021-08-23] MEDS ORDERED: oxyCODONE HCL IR 5 MG TAB (IMMEDIATE RELEASE) PO PRN (20:08)
[2021-08-23] MEDS: ENOXAPARIN INJ 40 MG/0.4 ML SYR SQ SCH (22:03)
[2021-08-24] MEDS: LORazepam 2 MG/1 ML VIAL IV PRN ×4 (04:16→19:58)
[2021-08-24 08:54] LABS: Hemoglobin 13.5 g/dL (14.0-18.0); Mean Corpuscular Hemoglobin 29.4 pg (25-34); Mean Corpuscular Hgb Conc 34.6 g/dL (32-36); Mean Platelet Volume 9.7 fL (7.4-10.4); Platelet Count 316 K/uL (130-400); RDW Coefficient of Variation 14.1 % (11.5-14.5); RDW Standard Deviation 42.9 fL (36.4-46.3); Red Blood Count 4.59 M/uL (4.7-6.1); White Blood Count 10.88 K/uL (4.8-10.8)
[2021-08-24 09:02] LABS: Prothrombin Time 10.7 Seconds (9.0-12.0)
[2021-08-24 09:26] LABS: Albumin Level 3.9 gm/dl (3.4-5.0); BUN Creatinine Ratio 27.3 (10-20); Bilirubin Direct 0.1 mg/dl (0-0.2); Bilirubin,Total 0.5 mg/dl (0.2-1.0); Calcium 9.5 mg/dl (8.5-10.1); Est GFR (African American) 135.3 ml/min; Est GFR (Non-African American) 116.7 ml/min; Phosphorus 3.8 mg/dl (2.5-4.9); Potassium 3.8 mmol/L (3.5-5.1); Total Protein 6.6 gm/dl (6.0-8.3)
[2021-08-24] MEDS: PROPRANOLOL HCL 20 MG TAB PO PRN ×2 (12:52→22:57)
--- NOTE | 2021-08-24 13:01 | Psychiatric Progress Note ---
Date of Service August 24, 2021 Impression / Recommendations Impression This is a 36 yo man admitted medically following an intentional overdose suicide attempt now medically stable. Diagnostically consistent with depressive episode of BPAD in the context of recent stressors including worsening mood with poor medication response and financial strain. Acute risk of self-harm remains elevated and high given suicide attempt requiring medical admission, major depressive symptoms, social isolation, access to lethal means, hopelessness, high psychic distress and ongoing ambivalence about being alive. Given elevated risk of harm to self they meet criteria for inpatient psychiatric care for diagnostic clarification, safety/stabilization, development of additional coping skills, medication management and disposition/safety planning once medically stable. He is voluntary for treatment but if he changes his mind should be evaluated as he would very likely meet criteria for 302 status based on severity of suicide attempt and ongoing modifiable risk factors. 08/24/21: He is now medically stable. He is willing for voluntary inpatient psychiatric treatment. He desires referrals to facilities that offer ECT given multiple prior medication trials in outpatient setting with poor response or unable to tolerate due to side effects. Remains anxious and very depressed with ongoing SI remains on 1-on-1. -Continue 1-on-1 for high risk of harm to self -Do not discharge or allow to leave AMA, contact psych liason if this occurs as he would meet 302 criteria but currently voluntary for inpt psych treatment -Hold psych medications for one more day, consider starting seroquel again tomorrow -Begin process of referrals to inpt psych facilities with ECT per his preference (1) Bipolar disorder with severe depression: (2) Antipsychotic-induced akathisia: (3) Depression: (4) Suicidal overdose: (5) Intentional overdose: (6) Transaminitis: (7) Polysubstance overdose: see above Risk Factors Assessment Do You Have Access To A Gun?: Yes (his father has guns in the home) Interval History Identifying Information 36 yo man living in [facility] with his parents with history of depression, anxiety and BPAD who was admitted medically following suicide attempt via polypharmacy overdose. Psychiatry was consulted for risk assessment and disposition recommendations. Chief Complaint "I feel like I'm in a hole I can't get out of". Subjective Subjective Patient was seen & assessed and interval progress reviewed. David reports ongoing depression with SI, "feelings of dread and restlessness" and "hopelessness" and "like I'm a failure". Agreeable to voluntary inpt psych treatment, would like to find a facility that offers ECT. Physical Exam Psychiatric Orientation: alert and oriented x 3 Apperance: appropriately dressed and appropriately groomed Eye Contact: good eye contact Motor Behavior: no abnormal motor movements Speech: normal rate/rhythm/volume of speech Affect: + flat affect Mood: + depressed mood and + anxious mood Thought Process: goal directed thought process Thought Content: reality based without delusions Suicidal Thoughts: denies suicidal plan and denies suicidal intent; + reports suicidal thoughts Homicidal Thoughts: denies homicidal thoughts Hallucinations: no auditory hallucinations and no visual hallucinations Cognition: recent memory grossly intact, remote memory grossly intact, attention grossly intact and language grossly intact Estimated Intelligence: consistent with education level Insight: + fair insight Judgement: + fair judgement Vital Signs (Past 24 Hours) Last Vital Signs Temp 36.6 C 08/24/21 07:34 Pulse 65 08/24/21 07:34 Resp 18 08/23/21 20:49 BP 114/72 08/24/21 07:34 Pulse Ox 98 08/24/21 07:34 Results & Data ([facility]) Laboratory Results Laboratory Results - last 24 hr 08/24/21 08/24/21 08/24/21 08:27 08:27 08:27 WBC 10.88 H RBC 4.59 L Hgb 13.5 L Hct 39.0 L MCV 85.0 MCH 29.4 MCHC 34.6 RDW Std Deviation 42.9 RDW Coeff of Esthela 14.1 Plt Count 316 MPV 9.7 PT 10.7 INR 1.0 Sodium 136 Potassium 3.8 Chloride 106 Carbon Dioxide 24 Anion Gap 6 BUN 21 Creatinine 0.77 Est Cr Clr Drug Dosing 124.0 Est GFR ( Amer) 135.3 Est GFR (Non-Af Amer) 116.7 BUN/Creatinine Ratio 27.3 H Glucose 91 Calcium 9.5 Phosphorus 3.8 Magnesium 2.0 Total Bilirubin 0.5 Direct Bilirubin 0.1 AST 21 ALT 342 H Alkaline Phosphatase 37 Total Protein 6.6 Albumin 3.9 Procalcitonin 08/24/21 09:58 WBC RBC Hgb Hct MCV MCH MCHC RDW Std Deviation RDW Coeff of Esthela Plt Count MPV PT INR Sodium Potassium Chloride Carbon Dioxide Anion Gap BUN Creatinine Est Cr Clr Drug Dosing Est GFR ( Amer) Est GFR (Non-Af Amer) BUN/Creatinine Ratio Glucose Calcium Phosphorus Magnesium Total Bilirubin Direct Bilirubin AST ALT Alkaline Phosphatase Total Protein Albumin Procalcitonin 0.10 Current Inpatient Medications Current Inpatient Medications: Current Inpatient Medications Bismuth Subsalicylate (Bismuth Subsalicylate 262 Mg Chew) 1 tab PO Q4H PRN PRN Reason: Diarrhea Stop: 09/17/21 22:06 Last Admin: 08/19/21 06:41 Dose: 1 tab Documented by: Enoxaparin Sodium (Enoxaparin Inj 40 Mg/0.4 Ml Syr) 40 mg SQ Q24H LACY Stop: 09/15/21 21:59 Last Admin: 08/23/21 22:03 Dose: 40 mg Documented by: Lorazepam (Lorazepam 2 Mg/1 Ml Vial) 0.5 mg IV Q6H PRN; Protocol PRN Reason: Agitation Stop: 09/19/21 12:04 Last Admin: 08/24/21 12:00 Dose: 0.5 mg Documented by: Oxycodone HCl (Oxycodone Hcl Ir 5 Mg Tab (Immediate Release)) 5 mg PO Q4H PRN PRN Reason: Pain Stop: 09/06/21 20:07 Propranolol HCl (Propranolol Hcl 20 Mg Tab) 20 mg PO TID PRN PRN Reason: anxiety Stop: 09/20/21 12:15 (1) Suicidal overdose Encounter type: initial encounter Qualified Code(s): T50.902A - Poisoning by unspecified drugs, medicaments and biological substances, intentional self-harm, initial encounter (2) Intentional overdose Encounter type: initial encounter Qualified Code(s): T50.902A - Poisoning by unspecified drugs, medicaments and biological substances, intentional self-harm, initial encounter
--- NOTE | 2021-08-24 17:10 | Hospitalist Progress Note ---
Date of Service August 24, 2021 Assessment & Plan (1) Acute respiratory failure: (2) Intentional overdose: (3) Suicidal overdose: (4) Tylenol toxicity: (5) Elevated CK: Plan: 36-year-old male who has significant past medical history of depression, anxiety and anuja who presents to ED 08/16 after sustaining what appears to be an intentional overdose on multiple prescription medications with suicide attempt prior to arrival. He is being managed for the following: #. Acute respiratory failure: Likely secondary to intentional overdose, was intubated, extubated 08/17, on room air. Resolved #. Polypharmacy overdose #. Tylenol toxicity #. Transaminitis: AST and ALT downtrending nicely, INR better. Continue to monitor. f/u INR and LFTs. GI evaluated, hepatitis panel. #. Prolonged QTC #. Suicidal overdose: Psy on board, can't leave AMA. 1:1. Hold psych meds for now. #. Toxic encephalopathy: Admitting CT Head w/ no Ac. findings. Secondary to polypharmacy overdose, resolved. Patient presented with polypharmacy suicidal overdose, was intubated at the field. At bedside exam 08/18, patient was AOx3, reported that he emptied half total of 1 months prescription of Seroquel, took 8 mg of clonazepam and 12 mg Ativan, 2 may be more than 30 tablets of Tylenol/ibuprofen/baby aspirin each prior to arrival. Salicylate level WNL, Tylenol level trended down, UDS benzo positive. Patient currently alert and oriented x3, on room air. LFT nicely coming down, GI evaluated, hepatitis panel - negative. Continue to monitor LFT, Poison control was on board, s/p NAC infusion Latest EKG on 08/23 w/ QRS 94 and QTc 381. c/w to monitor, supportive Mx. Medically stable for inpatient psych admission, d/w Dr. Craig, psychiatry unit is full and pt wants unit that offer ECT, psychiatry working w/ referral process. #. Elevated CK #. Electrolytes abnormalities Secondary to polypharmacy overdose, trending down, continue to monitor. Monitor renal fxn, bmp in AM. Monitor and replete electrolytes. #. Akathisia Patient started having restless feeling in his both legs the evening of 08/19, BLE US Doppler negative for DVT. Patient was pacing in the room in the morning of 08/20, stated he cannot stay at one place. Likely new akathisia secondary to the recent antipsychotic overdose of the background of overdosed benzodiazepine wearing off. Akathisia better but still present Ativan prn, propranolol BD prn. Titrating dose on propanolol per psychiatry recommendation. Appreciate psychiatric recommendations 08/20 for akathisia. Should behavioral emergency occur would use zyprexa 5 mg po or IM BUT NEVER WITHIN 1 HOUR OF IM OR IV BENZODIAZEPINE USE #. Depression/Suicidal attempt/Anxiet: Psychiatry on board, ? may need inpatient psy admission upon medical stability. DVT ppx: sc Lovenox Dispo: MedSurg, can't leave AMA. Medically stable for inpatient psychiatric admission. 08/18: Updated patient's mother and patient at bedside, answered all the questions, they voiced understanding and were agreeable to the plan of care. Admission and Anticipated Discharge Date Admission Date: August 16, 2021 Subjective Patient seen and examined at bedside as a follow-up of polypharmacy overdose x intentional, suicidal overdose and Tylenol toxicity and elevated CK. Patient was sitting up in bed, NAD, on room air, reports akathisia has resolved, reports more anxiety and depression, and some akathisia at bedside exam. pt reports eating ok. Patient denies any headache or dizziness or chest pain or palpitation or belly pain or nausea or vomiting. Physical Exam Physical Exam: GENERAL: Alert and oriented x3. nad, on RA. HEENT: No pallor, no icterus. Pupils equal, round and reactive to light. Oral mucosa moist. NECK: No JVD, no neck masses. HEART: S1 and S2 heard. Regular rate and rhythm. No murmur, no gallop. RESPIRATORY SYSTEM: Normal AP diameter. No accessory muscle use. No wheezing, no crackles. ABDOMEN: Soft, bowel sounds present, nontender, no distention. CENTRAL NERVOUS SYSTEM: No facial droop. Speech is clear. Obeys simple commands. Moves extremities. EXTREMITIES: No edema, no erythema seen. Results & Data Results & Data ([facility]) Vital Signs (Past 12 Hours) Vital Signs Temp Pulse BP Pulse Ox 08/24/21 07:34 36.6 C 65 114/72 98 (1) Acute respiratory failure Respiratory failure complication: unspecified whether with hypoxia or hypercapnia Qualified Code(s): J96.00 - Acute respiratory failure, unspecified whether with hypoxia or hypercapnia (2) Intentional overdose Encounter type: initial encounter Qualified Code(s): T50.902A - Poisoning by unspecified drugs, medicaments and biological substances, intentional self-harm, initial encounter (3) Suicidal overdose Encounter type: initial encounter Qualified Code(s): T50.902A - Poisoning by unspecified drugs, medicaments and biological substances, intentional self-harm, initial encounter (4) Tylenol toxicity Encounter type: initial encounter Injury intent: intentional self-harm Qualified Code(s): T39.1X2A - Poisoning by 4-Aminophenol derivatives, intentional self-harm, initial encounter
[2021-08-24] MEDS: ENOXAPARIN INJ 40 MG/0.4 ML SYR SQ SCH (20:01)
[2021-08-25] MEDS: LORazepam 2 MG/1 ML VIAL IV PRN ×4 (03:10→21:30)
[2021-08-25 06:33] LABS: Hematocrit (blood only) 41.2 % (42-52); Mean Corpuscular Hemoglobin 28.7 pg (25-34); Mean Corpuscular Volume 84.4 fL (80-100); Platelet Count 401 K/uL (130-400); RDW Coefficient of Variation 14.1 % (11.5-14.5); RDW Standard Deviation 42.4 fL (36.4-46.3); Red Blood Count 4.88 M/uL (4.7-6.1); White Blood Count 10.47 K/uL (4.8-10.8)
[2021-08-25 06:56] LABS: Albumin Level 3.9 gm/dl (3.4-5.0); BUN Creatinine Ratio 31.8 (10-20); Bilirubin,Total 0.4 mg/dl (0.2-1.0); Calcium 9.1 mg/dl (8.5-10.1); Creatinine Clr Calc Pharmacy 112.3 ml/min; Est GFR (African American) 129.9 ml/min; Est GFR (Non-African American) 112.1 ml/min; Magnesium 2.1 mg/dl (1.7-2.4); Phosphorus 3.9 mg/dl (2.5-4.9); Potassium 3.9 mmol/L (3.5-5.1); Total Protein 6.5 gm/dl (6.0-8.3)
[2021-08-25] MEDS: PROPRANOLOL HCL 20 MG TAB PO PRN ×2 (08:05→17:04)
--- NOTE | 2021-08-25 11:32 | Psychiatric Progress Note ---
Date of Service August 25, 2021 Impression / Recommendations Impression This is a 36 yo man admitted medically following an intentional overdose suicide attempt now medically stable. Diagnostically consistent with depressive episode of BPAD in the context of recent stressors including worsening mood with poor medication response and financial strain. Acute risk of self-harm remains elevated and high given suicide attempt requiring medical admission, major depressive symptoms, social isolation, access to lethal means, hopelessness, high psychic distress and ongoing ambivalence about being alive. Given elevated risk of harm to self they meet criteria for inpatient psychiatric care for diagnostic clarification, safety/stabilization, development of additional coping skills, medication management and disposition/safety planning once medically stable. He is voluntary for treatment but if he changes his mind should be evaluated as he would very likely meet criteria for 302 status based on severity of suicide attempt and ongoing modifiable risk factors. 08/25/21: He is now medically stable with referrals in progress for inpatient psychiatric facilities that offer ECT, no beds available today. He remains willing for voluntary inpatient psychiatric treatment. He continues to desire referrals to only facilities that offer ECT given multiple prior medication trials in outpatient setting with poor response or unable to tolerate due to side effects. Remains anxious and very depressed with ongoing SI remains on 1-on-1. -Continue 1-on-1 for high risk of harm to self -Do not discharge or allow to leave AMA, contact psych liason if this occurs as he would meet 302 criteria but currently voluntary for inpt psych treatment -Hold psych medications for one more day, consider starting seroquel again tomorrow -In process of referrals to inpt psych facilities with ECT per his preference (1) Bipolar disorder with severe depression: (2) Antipsychotic-induced akathisia: (3) Depression: (4) Suicidal overdose: (5) Intentional overdose: (6) Transaminitis: (7) Polysubstance overdose: see above Risk Factors Assessment Do You Have Access To A Gun?: Yes (his father has guns in the home) Interval History Identifying Information 36 yo man living in [facility] with his parents with history of depression, anxiety and BPAD who was admitted medically following suicide attempt via polypharmacy overdose. Psychiatry was consulted for risk assessment and disposition recommendations. Chief Complaint "I feel a little less anxious today". Review of Systems Notes see HPI, insomnia, stable appetite Subjective Subjective Patient was seen & assessed and interval progress reviewed. Continues to have difficulty sleeping. No physical complaints. Continues to have anxiety and depression and intermittent SI but feels this is slightly less today. Reviewed ECT inpt referral process. He would like to restart seroquel at bedtime as this previously worked well to help with anxiety and sleep. Physical Exam Psychiatric Orientation: alert and oriented x 3 Apperance: appropriately dressed and appropriately groomed Eye Contact: good eye contact Motor Behavior: no abnormal motor movements Speech: normal rate/rhythm/volume of speech Affect: + depressed affect, + anxious affect and + flat affect Mood: + depressed mood and + anxious mood Thought Process: goal directed thought process Thought Content: reality based without delusions Suicidal Thoughts: denies suicidal plan and denies suicidal intent; + reports suicidal thoughts Homicidal Thoughts: denies homicidal thoughts Hallucinations: no auditory hallucinations and no visual hallucinations Cognition: recent memory grossly intact, remote memory grossly intact, attention grossly intact and language grossly intact Estimated Intelligence: consistent with education level Insight: + fair insight Judgement: + fair judgement Vital Signs (Past 24 Hours) Last Vital Signs Temp 36.8 C 08/25/21 08:04 Pulse 63 08/25/21 08:04 Resp 18 08/25/21 08:04 BP 129/77 08/25/21 08:04 Pulse Ox 97 08/25/21 08:04 [facility] & [facility] Laboratory Results Laboratory Results - last 24 hr 08/25/21 08/25/21 05:20 05:20 WBC 10.47 RBC 4.88 Hgb 14.0 Hct 41.2 L MCV 84.4 MCH 28.7 MCHC 34.0 RDW Std Deviation 42.4 RDW Coeff of Esthela 14.1 Plt Count 401 H MPV 10.0 Sodium 138 Potassium 3.9 Chloride 107 Carbon Dioxide 23 Anion Gap 8 BUN 27 H Creatinine 0.85 Est Cr Clr Drug Dosing 112.3 Est GFR ( Amer) 129.9 Est GFR (Non-Af Amer) 112.1 BUN/Creatinine Ratio 31.8 H Glucose 94 Calcium 9.1 Phosphorus 3.9 Magnesium 2.1 Total Bilirubin 0.4 Direct Bilirubin 0.0 AST 18 ALT 244 H Alkaline Phosphatase 38 Total Protein 6.5 Albumin 3.9 Current Inpatient Medications Current Inpatient Medications: Current Inpatient Medications Bismuth Subsalicylate (Bismuth Subsalicylate 262 Mg Chew) 1 tab PO Q4H PRN PRN Reason: Diarrhea Stop: 09/17/21 22:06 Last Admin: 08/19/21 06:41 Dose: 1 tab Documented by: Enoxaparin Sodium (Enoxaparin Inj 40 Mg/0.4 Ml Syr) 40 mg SQ Q24H LACY Stop: 09/15/21 21:59 Last Admin: 08/24/21 20:01 Dose: 40 mg Documented by: Lorazepam (Lorazepam 2 Mg/1 Ml Vial) 0.5 mg IV Q6H PRN; Protocol PRN Reason: Agitation Stop: 09/19/21 12:04 Last Admin: 08/25/21 09:05 Dose: 0.5 mg Documented by: Oxycodone HCl (Oxycodone Hcl Ir 5 Mg Tab (Immediate Release)) 5 mg PO Q4H PRN PRN Reason: Pain Stop: 09/06/21 20:07 Propranolol HCl (Propranolol Hcl 20 Mg Tab) 20 mg PO TID PRN PRN Reason: anxiety Stop: 09/20/21 12:15 Last Admin: 08/25/21 08:05 Dose: 20 mg Documented by: (1) Suicidal overdose Encounter type: initial encounter Qualified Code(s): T50.902A - Poisoning by unspecified drugs, medicaments and biological substances, intentional self-harm, initial encounter (2) Intentional overdose Encounter type: initial encounter Qualified Code(s): T50.902A - Poisoning by unspecified drugs, medicaments and biological substances, intentional self-harm, initial encounter
--- NOTE | 2021-08-25 14:24 | Hospitalist Progress Note ---
Date of Service August 25, 2021 Assessment & Plan (1) Acute respiratory failure: (2) Intentional overdose: (3) Suicidal overdose: (4) Tylenol toxicity: (5) Elevated CK: Plan: 36-year-old male who has significant past medical history of depression, anxiety and anuja who presents to ED 08/16 after sustaining what appears to be an intentional overdose on multiple prescription medications with suicide attempt prior to arrival. He is being managed for the following: #. Acute respiratory failure: secondary to intentional overdose, was intubated, extubated 08/17, on room air. Resolved #. Polypharmacy overdose- resolved. #. Tylenol toxicity- resolved. S/p NAC. Tylenol level now negative. #. Transaminitis: AST elevation resolved, ALT downtrending nicely, INR normal. Hep panel negative. Can check LFT as OP to ensure resolution. Hepatitis panel negative #. Prolonged QTC- resolved. QTc now 381 #. Suicidal overdose: Psychiatry on board, can't leave AMA. 1:1. Currently denies suicidal ideation #. Toxic encephalopathy: resolved. Admitting CT Head w/ no Ac. findings. Secondary to polypharmacy overdose, resolved. Patient presented with polypharmacy suicidal overdose, was intubated at the field. At bedside exam 08/18, patient was AAOx3, reported that he emptied half total of 1 months prescription of Seroquel, took 8 mg of clonazepam and 12 mg Ativan, 2 may be more than 30 tablets of Tylenol/ibuprofen/baby aspirin each prior to arrival. Poison control was on board, s/p NAC infusion Latest EKG on 08/23 w/ QRS 94 and QTc 381. c/w to monitor, supportive management. Medically stable for inpatient psych admission- plan for IP psych facility with ECT- d/w Dr. Craig- referral in process. #. Akathisia- Patient started having restless feeling in his both legs the evening of 08/19, BLE US Doppler negative for DVT. - Patient was pacing in the room in the morning of 08/20, stated he cannot stay at one place. - Likely new akathisia secondary to the recent antipsychotic overdose of the background of overdosed benzodiazepine wearing off. - Akathisia better - Ativan prn, propranolol BD prn. Titrating dose on propanolol per psychiatry recommendation. - Appreciate psychiatric recommendations 08/20 for akathisia. Should behavioral emergency occur would use zyprexa 5 mg po or IM BUT NEVER WITHIN 1 HOUR OF IM OR IV BENZODIAZEPINE USE #. Depression/Suicidal attempt/Anxiety: Psychiatry on board- plan to start seroquel from tonight- rest as above DVT ppx: sc Lovenox Dispo: Continue 1:1. Can not leave AMA. Medically stable for inpatient psychiatric admission. Psych working with referrals for facility with ECT. Updated mom at bedside Admission and Anticipated Discharge Date Admission Date: August 16, 2021 Subjective States his mood is always low. Denies any suicidal ideation. Normal appetite. Regular bowel movements. States he ambulates a lot. Discussed about psychiatry recommendations. Mom at bedside- states he will need to go to a facility with ECT as he failed to improve on the medications. Physical Exam Physical Exam: General: Lying comfortably in bed, not in distress, on room air HEENT: EOMI, RENZO, MMM Chest: Clear breath sounds bilaterally, no wheezes or crackles CVS: Regular rate and rhythm, normal heart sounds, no murmur Abdomen: Soft, non tender, not distended, normal bowel sounds Neuro: Awake, alert, oriented, conversing well, non focal Extremities: No cyanosis, clubbing or edema Psych: Calm, cooperative, mood low Results & Data Results & Data ([facility]) Vital Signs (Past 12 Hours) Vital Signs Temp Pulse Resp BP BP Pulse Ox 08/25/21 08:04 36.8 C 63 18 129/77 97 08/25/21 03:13 36.8 C 64 18 122/75 95 Laboratory Results Short CBC 08/25/21 Range/Units 05:20 WBC 10.47 (4.8-10.8) K/uL Hgb 14.0 (14.0-18.0) g/dL Hct 41.2 L (42-52) % Plt Count 401 H (130-400) K/uL BMP 08/25/21 05:20 Sodium 138 Potassium 3.9 Chloride 107 Carbon Dioxide 23 BUN 27 H Creatinine 0.85 Glucose 94 Calcium 9.1 Liver Function 08/25/21 Range/Units 05:20 Total Bilirubin 0.4 (0.2-1.0) mg/dl Direct Bilirubin 0.0 (0-0.2) mg/dl AST 18 (13-39) U/L ALT 244 H (7-52) U/L Alkaline Phosphatase 38 (34-104) U/L Albumin 3.9 (3.4-5.0) gm/dl Medications Administered Current Inpatient Medications Bismuth Subsalicylate (Bismuth Subsalicylate 262 Mg Chew) 1 tab PO Q4H PRN PRN Reason: Diarrhea Stop: 09/17/21 22:06 Last Admin: 08/19/21 06:41 Dose: 1 tab Documented by: Enoxaparin Sodium (Enoxaparin Inj 40 Mg/0.4 Ml Syr) 40 mg SQ Q24H LACY Stop: 09/15/21 21:59 Last Admin: 08/24/21 20:01 Dose: 40 mg Documented by: Lorazepam (Lorazepam 2 Mg/1 Ml Vial) 0.5 mg IV Q6H PRN; Protocol PRN Reason: Agitation Stop: 09/19/21 12:04 Last Admin: 08/25/21 15:20 Dose: 0.5 mg Documented by: Oxycodone HCl (Oxycodone Hcl Ir 5 Mg Tab (Immediate Release)) 5 mg PO Q4H PRN PRN Reason: Pain Stop: 09/06/21 20:07 Propranolol HCl (Propranolol Hcl 20 Mg Tab) 20 mg PO TID PRN PRN Reason: anxiety Stop: 09/20/21 12:15 Last Admin: 08/25/21 08:05 Dose: 20 mg Documented by: Quetiapine Fumarate (Quetiapine Fumarate 100 Mg Tablet) 100 mg PO HS LACY Stop: 09/24/21 20:59 (1) Suicidal overdose Encounter type: initial encounter Qualified Code(s): T50.902A - Poisoning by unspecified drugs, medicaments and biological substances, intentional self-harm, initial encounter (2) Intentional overdose Encounter type: initial encounter Qualified Code(s): T50.902A - Poisoning by unspecified drugs, medicaments and biological substances, intentional self-harm, initial encounter (3) Acute respiratory failure Respiratory failure complication: unspecified whether with hypoxia or hypercapnia Qualified Code(s): J96.00 - Acute respiratory failure, unspecified whether with hypoxia or hypercapnia (4) Tylenol toxicity Encounter type: initial encounter Injury intent: intentional self-harm Qualified Code(s): T39.1X2A - Poisoning by 4-Aminophenol derivatives, intentional self-harm, initial encounter
[2021-08-25] MEDS ORDERED: QUEtiapine FUMARATE 100 MG TABLET PO SCH (21:00)
[2021-08-25] MEDS: ENOXAPARIN INJ 40 MG/0.4 ML SYR SQ SCH (21:30)
[2021-08-26 06:51] LABS: Albumin Level 3.9 gm/dl (3.4-5.0); BUN Creatinine Ratio 28.4 (10-20); Bilirubin Direct 0.1 mg/dl (0-0.2); Bilirubin,Total 0.4 mg/dl (0.2-1.0); Calcium 9.1 mg/dl (8.5-10.1); Creatinine Clr Calc Pharmacy 117.9 ml/min; Est GFR (African American) 132.5 ml/min; Est GFR (Non-African American) 114.3 ml/min; Magnesium 2.2 mg/dl (1.7-2.4); Phosphorus 3.6 mg/dl (2.5-4.9); Potassium 3.5 mmol/L (3.5-5.1); Total Protein 6.4 gm/dl (6.0-8.3)
[2021-08-26] MEDS: PROPRANOLOL HCL 20 MG TAB PO PRN ×2 (08:28→21:57)
[2021-08-26] MEDS: LORazepam 2 MG/1 ML VIAL IV PRN ×3 (08:28→21:54)
--- NOTE | 2021-08-26 13:27 | Psychiatric Progress Note ---
Date of Service August 26, 2021 Impression / Recommendations Impression This is a 36 yo man admitted medically following an intentional overdose suicide attempt now medically stable. Diagnostically consistent with depressive episode of BPAD in the context of recent stressors including worsening mood with poor medication response and financial strain. Acute risk of self-harm remains elevated and high given suicide attempt requiring medical admission, major depressive symptoms, social isolation, access to lethal means, hopelessness, high psychic distress and ongoing ambivalence about being alive. Given elevated risk of harm to self they meet criteria for inpatient psychiatric care for diagnostic clarification, safety/stabilization, development of additional coping skills, medication management and disposition/safety planning once medically stable. He is voluntary for treatment but if he changes his mind should be evaluated as he would very likely meet criteria for 302 status based on severity of suicide attempt and ongoing modifiable risk factors. 08/26/21: He remains medically stable with referrals in progress for inpatient psychiatric facilities that offer ECT, no beds available today. He remains willing for voluntary inpatient psychiatric treatment. He continues to desire referrals to only facilities that offer ECT given multiple prior medication trials in outpatient setting with poor response or unable to tolerate due to side effects. Remains anxious and very depressed with ongoing SI remains on 1-on-1. Consents to increased dose of seroquel-reviewed side effects including but not limited to cardiac, metabolic and movement (TD). -Continue 1-on-1 for high risk of harm to self -Do not discharge or allow to leave AMA, contact psych liason if this occurs as he would meet 302 criteria but currently voluntary for inpt psych treatment -Increase seroquel to 200mg qhs -In process of referrals to inpt psych facilities with ECT per his preference (1) Bipolar disorder with severe depression: (2) Antipsychotic-induced akathisia: (3) Depression: (4) Suicidal overdose: (5) Intentional overdose: (6) Transaminitis: (7) Polysubstance overdose: see above Risk Factors Assessment Do You Have Access To A Gun?: Yes (his father has guns in the home) Interval History Identifying Information 36 yo man living in [facility] with his parents with history of depression, anxiety and BPAD who was admitted medically following suicide attempt via polypharmacy overdose. Psychiatry was consulted for risk assessment and disposition recommendations. Chief Complaint "Things are rough, I'm always rough". Review of Systems Notes improved sleep, stable appetite Subjective Subjective Patient was seen & assessed and interval progress reviewed. Improved sleep with addition of seroquel. Continues to have anxiety and depression. Some restlessness which he attributes partly to extended hospitalization. Remains hopeful about placement at facility that can offer ECT. No side effects from seroquel, he requests increased dose to further help with depression and anxiety. Physical Exam Psychiatric Orientation: alert and oriented x 3 Apperance: appropriately dressed and appropriately groomed Eye Contact: good eye contact Motor Behavior: no abnormal motor movements Speech: normal rate/rhythm/volume of speech Affect: + depressed affect and + flat affect Mood: + depressed mood and + anxious mood Thought Process: goal directed thought process Thought Content: reality based without delusions Suicidal Thoughts: denies suicidal plan and denies suicidal intent; + reports suicidal thoughts Homicidal Thoughts: denies homicidal thoughts Hallucinations: no auditory hallucinations and no visual hallucinations Cognition: recent memory grossly intact, remote memory grossly intact, attention grossly intact and language grossly intact Estimated Intelligence: consistent with education level Insight: + fair insight Judgement: + fair judgement Vital Signs (Past 24 Hours) Last Vital Signs Temp 36.7 C 08/26/21 07:56 Pulse 81 08/26/21 07:56 Resp 12 08/26/21 07:56 BP 124/76 08/26/21 07:56 Pulse Ox 98 08/26/21 07:56 Results & Data (U) Laboratory Results Laboratory Results - last 24 hr 08/26/21 05:16 Sodium 141 Potassium 3.5 Chloride 108 H Carbon Dioxide 24 Anion Gap 9 BUN 23 Creatinine 0.81 Est Cr Clr Drug Dosing 117.9 Est GFR ( Amer) 132.5 Est GFR (Non-Af Amer) 114.3 BUN/Creatinine Ratio 28.4 H Glucose 86 Calcium 9.1 Phosphorus 3.6 Magnesium 2.2 Total Bilirubin 0.4 Direct Bilirubin 0.1 AST 15 ALT 182 H Alkaline Phosphatase 38 Total Protein 6.4 Albumin 3.9 Current Inpatient Medications Current Inpatient Medications: Current Inpatient Medications Bismuth Subsalicylate (Bismuth Subsalicylate 262 Mg Chew) 1 tab PO Q4H PRN PRN Reason: Diarrhea Stop: 09/17/21 22:06 Last Admin: 08/19/21 06:41 Dose: 1 tab Documented by: Enoxaparin Sodium (Enoxaparin Inj 40 Mg/0.4 Ml Syr) 40 mg SQ Q24H LACY Stop: 09/15/21 21:59 Last Admin: 08/25/21 21:30 Dose: 40 mg Documented by: Lorazepam (Lorazepam 2 Mg/1 Ml Vial) 0.5 mg IV Q6H PRN; Protocol PRN Reason: Agitation Stop: 09/19/21 12:04 Last Admin: 08/26/21 08:28 Dose: 0.5 mg Documented by: Oxycodone HCl (Oxycodone Hcl Ir 5 Mg Tab (Immediate Release)) 5 mg PO Q4H PRN PRN Reason: Pain Stop: 09/06/21 20:07 Propranolol HCl (Propranolol Hcl 20 Mg Tab) 20 mg PO TID PRN PRN Reason: anxiety Stop: 09/20/21 12:15 Last Admin: 08/26/21 08:28 Dose: 20 mg Documented by: Quetiapine Fumarate (Quetiapine Fumarate 100 Mg Tablet) 100 mg PO HS LACY Stop: 09/24/21 20:59 Last Admin: 08/25/21 21:30 Dose: 100 mg Documented by: (1) Suicidal overdose Encounter type: initial encounter Qualified Code(s): T50.902A - Poisoning by unspecified drugs, medicaments and biological substances, intentional self-harm, initial encounter (2) Intentional overdose Encounter type: initial encounter Qualified Code(s): T50.902A - Poisoning by unspecified drugs, medicaments and biological substances, intentional self-harm, initial encounter
[2021-08-26] MEDS ORDERED: QUEtiapine FUMARATE 100 MG TABLET PO PRN (15:06)
--- NOTE | 2021-08-26 16:13 | Hospitalist Progress Note ---
Date of Service August 26, 2021 Assessment & Plan (1) Acute respiratory failure: (2) Intentional overdose: (3) Suicidal overdose: (4) Tylenol toxicity: (5) Elevated CK: Plan: 36-year-old male who has significant past medical history of depression, anxiety and anuja who presents to ED 08/16 after sustaining what appears to be an intentional overdose on multiple prescription medications with suicide attempt prior to arrival. He is being managed for the following: #. Acute respiratory failure: secondary to intentional overdose, was intubated, extubated 08/17, on room air. Resolved #. Polypharmacy overdose- resolved. #. Tylenol toxicity- resolved. S/p NAC. Tylenol level now negative. #. Transaminitis: AST elevation resolved, ALT downtrending nicely, INR normal. Hep panel negative. Can check LFT as OP to ensure resolution. Hepatitis panel negative #. Prolonged QTC- resolved. QTc now 381 #. Suicidal overdose: Psychiatry on board, can't leave AMA. 1:1. Currently denies suicidal ideation #. Toxic encephalopathy: resolved. Admitting CT Head w/ no Ac. findings. Secondary to polypharmacy overdose, resolved. Patient presented with polypharmacy suicidal overdose, was intubated at the field. At bedside exam 08/18, patient was AAOx3, reported that he emptied half total of 1 months prescription of Seroquel, took 8 mg of clonazepam and 12 mg Ativan, 2 may be more than 30 tablets of Tylenol/ibuprofen/baby aspirin each prior to arrival. Poison control was on board, s/p NAC infusion Latest EKG on 08/23 w/ QRS 94 and QTc 381. c/w to monitor, supportive management. Medically stable for inpatient psych admission- plan for IP psych facility with ECT- d/w Dr. Craig- referral in process. #. Akathisia- Patient started having restless feeling in his both legs the evening of 08/19, BLE US Doppler negative for DVT. - Patient was pacing in the room in the morning of 08/20, stated he cannot stay at one place. - Likely new akathisia secondary to the recent antipsychotic overdose of the background of overdosed benzodiazepine wearing off. - Akathisia better - Ativan prn, propranolol BD prn. - Appreciate psychiatric recommendations 08/20 for akathisia. Should behavioral emergency occur would use zyprexa 5 mg po or IM BUT NEVER WITHIN 1 HOUR OF IM OR IV BENZODIAZEPINE USE #. Depression/Suicidal attempt/Anxiety: Psychiatry on board- started on seroquel 08/25 per psych- watch for worsening akathisia DVT ppx: sc Lovenox Dispo: Continue 1:1. Can not leave AMA. Medically stable for inpatient psychiatric admission. Psych working with referrals for facility with ECT. Admission and Anticipated Discharge Date Admission Date: August 16, 2021 Subjective States he feels slightly better. States he tolerated seroquel well last night, slept slightly better. No other issues. Physical Exam Physical Exam: General: Ambulating in the room, not in distress, on room air HEENT: EOMI, RENZO, MMM Chest: Clear breath sounds bilaterally, no wheezes or crackles CVS: Regular rate and rhythm, normal heart sounds, no murmur Abdomen: Soft, non tender, not distended, normal bowel sounds Neuro: Awake, alert, oriented, conversing well, non focal Extremities: No cyanosis, clubbing or edema Psych: Calm, cooperative, mood low Results & Data Results & Data ([facility]) Vital Signs (Past 12 Hours) Vital Signs Temp Pulse Resp BP BP Pulse Ox 08/26/21 15:28 36.8 C 63 24 110/69 96 08/26/21 07:56 36.7 C 81 12 124/76 98 Laboratory Results [facility] 08/26/21 05:16 Sodium 141 Potassium 3.5 Chloride 108 H Carbon Dioxide 24 BUN 23 Creatinine 0.81 Glucose 86 Calcium 9.1 Liver Function 08/26/21 Range/Units 05:16 Total Bilirubin 0.4 (0.2-1.0) mg/dl Direct Bilirubin 0.1 (0-0.2) mg/dl AST 15 (13-39) U/L ALT 182 H (7-52) U/L Alkaline Phosphatase 38 (34-104) U/L Albumin 3.9 (3.4-5.0) gm/dl Medications Administered Current Inpatient Medications Bismuth Subsalicylate (Bismuth Subsalicylate 262 Mg Chew) 1 tab PO Q4H PRN PRN Reason: Diarrhea Stop: 09/17/21 22:06 Last Admin: 08/19/21 06:41 Dose: 1 tab Documented by: Enoxaparin Sodium (Enoxaparin Inj 40 Mg/0.4 Ml Syr) 40 mg SQ Q24H LACY Stop: 09/15/21 21:59 Last Admin: 08/25/21 21:30 Dose: 40 mg Documented by: Lorazepam (Lorazepam 2 Mg/1 Ml Vial) 0.5 mg IV Q6H PRN; Protocol PRN Reason: Agitation Stop: 09/19/21 12:04 Last Admin: 08/26/21 14:49 Dose: 0.5 mg Documented by: Oxycodone HCl (Oxycodone Hcl Ir 5 Mg Tab (Immediate Release)) 5 mg PO Q4H PRN PRN Reason: Pain Stop: 09/06/21 20:07 Propranolol HCl (Propranolol Hcl 20 Mg Tab) 20 mg PO TID PRN PRN Reason: anxiety Stop: 09/20/21 12:15 Last Admin: 08/26/21 08:28 Dose: 20 mg Documented by: Quetiapine Fumarate (Quetiapine Fumarate 100 Mg Tablet) 100 mg PO HS PRN PRN Reason: insomnia Stop: 09/25/21 20:59 (1) Acute respiratory failure Respiratory failure complication: unspecified whether with hypoxia or hypercapnia Qualified Code(s): J96.00 - Acute respiratory failure, unspecified whether with hypoxia or hypercapnia (2) Intentional overdose Encounter type: initial encounter Qualified Code(s): T50.902A - Poisoning by unspecified drugs, medicaments and biological substances, intentional self-harm, initial encounter (3) Suicidal overdose Encounter type: initial encounter Qualified Code(s): T50.902A - Poisoning by unspecified drugs, medicaments and biological substances, intentional self-harm, initial encounter (4) Tylenol toxicity Encounter type: initial encounter Injury intent: intentional self-harm Qualified Code(s): T39.1X2A - Poisoning by 4-Aminophenol derivatives, intentional self-harm, initial encounter
[2021-08-26] MEDS: BISMUTH SUBSALICYLATE 262 MG CHEW PO PRN (18:34)
[2021-08-26] MEDS ORDERED: QUEtiapine FUMARATE 200 MG TAB PO SCH (21:00)
[2021-08-26] MEDS: ENOXAPARIN INJ 40 MG/0.4 ML SYR SQ SCH (21:57)
[2021-08-26] MEDS ORDERED: MELATONIN 3 MG TAB PO PRN ×2 (22:16→23:14)
[2021-08-27] MEDS: LORazepam 2 MG/1 ML VIAL IV PRN ×2 (04:11→10:26)
[2021-08-27] MEDS: PROPRANOLOL HCL 20 MG TAB PO PRN ×2 (10:14→21:26)
--- NOTE | 2021-08-27 15:12 | Hospitalist Progress Note ---
Date of Service August 27, 2021 Assessment & Plan (1) Acute respiratory failure: (2) Intentional overdose: (3) Suicidal overdose: (4) Tylenol toxicity: (5) Elevated CK: Plan: 36-year-old male who has significant past medical history of depression, anxiety and anuja who presents to ED 08/16 after sustaining what appears to be an intentional overdose on multiple prescription medications with suicide attempt prior to arrival. He is being managed for the following: #. Acute respiratory failure: secondary to intentional overdose, was intubated, extubated 08/17, on room air. Resolved #. Polypharmacy overdose- resolved. #. Tylenol toxicity- resolved. S/p NAC. Tylenol level now negative. #. Transaminitis: AST elevation resolved, ALT downtrending nicely, INR normal. Hep panel negative. Can check LFT as OP to ensure resolution. Hepatitis panel negative #. Prolonged QTC- resolved. QTc now 381 #. Suicidal overdose: Psychiatry on board, can't leave AMA. 1:1. Currently denies suicidal ideation #. Toxic encephalopathy: resolved. Admitting CT Head w/ no Ac. findings. Secondary to polypharmacy overdose, resolved. Patient presented with polypharmacy suicidal overdose, was intubated at the field. At bedside exam 08/18, patient was AAOx3, reported that he emptied half total of 1 months prescription of Seroquel, took 8 mg of clonazepam and 12 mg Ativan, 2 may be more than 30 tablets of Tylenol/ibuprofen/baby aspirin each prior to arrival. Poison control was on board, s/p NAC infusion Latest EKG on 08/23 w/ QRS 94 and QTc 381. c/w to monitor, supportive management. Medically stable for inpatient psych admission- plan for IP psych facility with ECT- d/w psych liasion- referral in process. #. Akathisia- Patient started having restless feeling in his both legs the evening of 08/19, BLE US Doppler negative for DVT. - Patient was pacing in the room in the morning of 08/20, stated he cannot stay at one place. - Likely new akathisia secondary to the recent antipsychotic overdose of the background of overdosed benzodiazepine wearing off. - Akathisia better - Ativan prn, propranolol BID prn. - Appreciate psychiatric recommendations 08/20 for akathisia. Should behavioral emergency occur would use zyprexa 5 mg po or IM BUT NEVER WITHIN 1 HOUR OF IM OR IV BENZODIAZEPINE USE #. Depression/Suicidal attempt/Anxiety: Psychiatry on board- started on Seroquel 08/25 per psych but did not tolerate and did not take further dose- asking for something different like abilify- will discuss with psych. Also will change iv Ativan to po. DVT ppx: sc Lovenox Dispo: Continue 1:1. Can not leave AMA. Medically stable for inpatient psychiatric admission. Psych working with referrals for facility with ECT. Updated mom at bedside Admission and Anticipated Discharge Date Admission Date: August 16, 2021 Subjective States he is anxious and would like something more for his anxiety- like abilify or something for mood stabilization while he is here. he has been using ativan pretty much round the clock despite being prn. He states seroquel did not go well with him and stopped after one dose. Physical Exam Physical Exam: General: Ambulating in the room, not in distress, on room air HEENT: EOMI, RENZO, MMM Chest: Clear breath sounds bilaterally, no wheezes or crackles CVS: Regular rate and rhythm, normal heart sounds, no murmur Abdomen: Soft, non tender, not distended, normal bowel sounds Neuro: Awake, alert, oriented, conversing well, non focal Extremities: No cyanosis, clubbing or edema Psych: Calm, cooperative, mood low Results & Data Results & Data ([facility]) Vital Signs (Past 12 Hours) Vital Signs Temp Pulse Resp BP Pulse Ox 08/27/21 07:54 36.5 C 86 18 127/85 97 Medications Administered Current Inpatient Medications Bismuth Subsalicylate (Bismuth Subsalicylate 262 Mg Chew) 1 tab PO Q4H PRN PRN Reason: Diarrhea Stop: 09/17/21 22:06 Last Admin: 08/26/21 18:34 Dose: 1 tab Documented by: Enoxaparin Sodium (Enoxaparin Inj 40 Mg/0.4 Ml Syr) 40 mg SQ Q24H LACY Stop: 09/15/21 21:59 Last Admin: 08/26/21 21:57 Dose: 40 mg Documented by: Lorazepam (Lorazepam 0.5 Mg Tab) 0.5 mg PO Q4 PRN PRN Reason: Anxiety Stop: 09/26/21 15:10 Melatonin (Melatonin 3 Mg Tab) 12 mg PO HS PRN PRN Reason: Sleep Stop: 09/25/21 22:15 Last Admin: 08/26/21 23:55 Dose: 12 mg Documented by: Oxycodone HCl (Oxycodone Hcl Ir 5 Mg Tab (Immediate Release)) 5 mg PO Q4H PRN PRN Reason: Pain Stop: 09/06/21 20:07 Propranolol HCl (Propranolol Hcl 20 Mg Tab) 20 mg PO TID PRN PRN Reason: anxiety Stop: 09/20/21 12:15 Last Admin: 08/27/21 10:14 Dose: 20 mg Documented by: Quetiapine Fumarate (Quetiapine Fumarate 100 Mg Tablet) 100 mg PO HS PRN PRN Reason: insomnia Stop: 09/25/21 20:59 (1) Acute respiratory failure Respiratory failure complication: unspecified whether with hypoxia or hypercapnia Qualified Code(s): J96.00 - Acute respiratory failure, unspecified whether with hypoxia or hypercapnia (2) Intentional overdose Encounter type: initial encounter Qualified Code(s): T50.902A - Poisoning by unspecified drugs, medicaments and biological substances, intentional self-harm, initial encounter (3) Suicidal overdose Encounter type: initial encounter Qualified Code(s): T50.902A - Poisoning by unspecified drugs, medicaments and biological substances, intentional self-harm, initial encounter (4) Tylenol toxicity Encounter type: initial encounter Injury intent: intentional self-harm Qualified Code(s): T39.1X2A - Poisoning by 4-Aminophenol derivatives, intentional self-harm, initial encounter
[2021-08-27] MEDS: LORazepam 0.5 MG TAB PO PRN ×2 (15:19→20:15)
--- NOTE | 2021-08-27 15:26 | Psychiatric Progress Note ---
Date of Service August 27, 2021 Impression / Recommendations Impression This is a 36 yo man admitted medically following an intentional overdose suicide attempt now medically stable. Diagnostically consistent with depressive episode of BPAD in the context of recent stressors including worsening mood with poor medication response and financial strain. Acute risk of self-harm remains elevated and high given suicide attempt requiring medical admission, major depressive symptoms, social isolation, access to lethal means, hopelessness, high psychic distress and ongoing ambivalence about being alive. Given elevated risk of harm to self they meet criteria for inpatient psychiatric care for diagnostic clarification, safety/stabilization, development of additional coping skills, medication management and disposition/safety planning once medically stable. He is voluntary for treatment but if he changes his mind should be evaluated as he would very likely meet criteria for 302 status based on severity of suicide attempt and ongoing modifiable risk factors. 08/27/21: David is medically stable but from a psychiatric standpoint he remains high acute risk of self-harm given recent suicide attempt with lethal potential, ongoing SI and severe depression and anxiety. He has been trialed on multiple psychiatric medications in the past including escitalopram (at which point he became activated with symptoms of anuja and then BPAD diagnosis was made) and since that time multiple mood stabilizers (lithium, lamictal) and antipsychotics (latuda, Vraylar, Seroquel) with either intolerable side effects (most often akathisia) limiting their use or ineffectiveness. He also tried TMS with Dr. Arevalo but it resulted in activation. At this point ECT is felt to be the most appropriate treatment option, and is my recommendation and his outpatient psychiatrist is in support of this, as he has ongoing severe depression, had a suicide attempt due to the severity of his symptoms, has had multiple trials of medication which were ineffective or not tolerated, he has no contraindications to ECT treatment, desires ECT and this is the treatment most likely to help his symptoms improve quickly and reduce his acute and chronic risk of self-harm. He remains medically stable with referrals in progress for inpatient psychiatric facilities that offer ECT. He remains willing for voluntary inpatient psychiatric treatment. He continues to desire referrals to only facilities that offer ECT given multiple prior medication trials in outpatient setting with poor response or unable to tolerate due to side effects. Remains anxious and very depressed with ongoing SI remains on 1-on-1. Consents to trial of risperidone for bipolar depression/mood stabilization-reviewed side effects including but not limited to cardiac, metabolic and movement (TD) as well as trazodone for insomnia, reviewed side effects including but not limited to sedation. -Continue 1-on-1 for high risk of harm to self -Do not discharge or allow to leave AMA, contact psych liason if this occurs as he would meet 302 criteria but currently voluntary for inpt psych treatment -Stop seroquel, start risperidone 0.25 mg BID and trazodone 50mg qhs -In process of referrals to inpt psych facilities with ECT per his preference (1) Bipolar disorder with severe depression: (2) Antipsychotic-induced akathisia: (3) Depression: (4) Suicidal overdose: (5) Intentional overdose: (6) Transaminitis: (7) Polysubstance overdose: see above Risk Factors Assessment Do You Have Access To A Gun?: Yes (his father has guns in the home) Interval History Identifying Information 36 yo man living in [facility] with his parents with history of depression, anxiety and BPAD who was admitted medically following suicide attempt via polypharmacy overdose. Psychiatry was consulted for risk assessment and disposition recommendations. Chief Complaint "I struggled to sleep last night, the melatonin didn't work". Review of Systems Notes insomnia, stable appetite Subjective Subjective Patient was seen & assessed and interval progress reviewed. David reports ongoing severe depression and anxiety. Still has restlessness, he isn't sure if this is akathisia from the seroquel or just due to anxiety and prolonged hospitalization. He remains hopeful for ECT as he has tried many medications in the past without benefit. Reviewed his prior medication trials and depression symptoms again. Continues to have SI. Physical Exam Psychiatric Orientation: alert and oriented x 3 Apperance: appropriately dressed and appropriately groomed Eye Contact: good eye contact Motor Behavior: no abnormal motor movements Speech: normal rate/rhythm/volume of speech Affect: + depressed affect and + flat affect Mood: + depressed mood and + anxious mood Thought Process: goal directed thought process Thought Content: reality based without delusions Suicidal Thoughts: denies suicidal plan and denies suicidal intent; + reports suicidal thoughts Homicidal Thoughts: denies homicidal thoughts Hallucinations: no auditory hallucinations and no visual hallucinations Cognition: recent memory grossly intact, remote memory grossly intact, attention grossly intact and language grossly intact Estimated Intelligence: consistent with education level Insight: + fair insight Judgement: + fair judgement Vital Signs (Past 24 Hours) Last Vital Signs Temp 36.5 C 08/27/21 07:54 Pulse 86 08/27/21 07:54 Resp 18 08/27/21 07:54 BP 127/85 08/27/21 07:54 Pulse Ox 97 08/27/21 07:54 Results & Data ([facility]) Laboratory Results Laboratory Results - last 24 hr 08/27/21 03:05 Stl C. diff Tox B Gene Negative Cdiff Gene Current Inpatient Medications Current Inpatient Medications: Current Inpatient Medications Bismuth Subsalicylate (Bismuth Subsalicylate 262 Mg Chew) 1 tab PO Q4H PRN PRN Reason: Diarrhea Stop: 09/17/21 22:06 Last Admin: 08/26/21 18:34 Dose: 1 tab Documented by: Enoxaparin Sodium (Enoxaparin Inj 40 Mg/0.4 Ml Syr) 40 mg SQ Q24H LACY Stop: 09/15/21 21:59 Last Admin: 08/26/21 21:57 Dose: 40 mg Documented by: Lorazepam (Lorazepam 0.5 Mg Tab) 0.5 mg PO Q4 PRN PRN Reason: Anxiety Stop: 09/26/21 15:10 Melatonin (Melatonin 3 Mg Tab) 12 mg PO HS PRN PRN Reason: Sleep Stop: 09/25/21 22:15 Last Admin: 08/26/21 23:55 Dose: 12 mg Documented by: Oxycodone HCl (Oxycodone Hcl Ir 5 Mg Tab (Immediate Release)) 5 mg PO Q4H PRN PRN Reason: Pain Stop: 09/06/21 20:07 Propranolol HCl (Propranolol Hcl 20 Mg Tab) 20 mg PO TID PRN PRN Reason: anxiety Stop: 09/20/21 12:15 Last Admin: 08/27/21 10:14 Dose: 20 mg Documented by: Quetiapine Fumarate (Quetiapine Fumarate 100 Mg Tablet) 100 mg PO HS PRN PRN Reason: insomnia Stop: 09/25/21 20:59 (1) Suicidal overdose Encounter type: initial encounter Qualified Code(s): T50.902A - Poisoning by unspecified drugs, medicaments and biological substances, intentional self-harm, initial encounter (2) Intentional overdose Encounter type: initial encounter Qualified Code(s): T50.902A - Poisoning by unspecified drugs, medicaments and biological substances, intentional self-harm, initial encounter
[2021-08-27] MEDS: risperiDONE 0.5 MG TABLET PO SCH (20:15)
[2021-08-27] MEDS ORDERED: traZODone HCL 50 MG TAB PO SCH (21:00)
[2021-08-27] MEDS: ENOXAPARIN INJ 40 MG/0.4 ML SYR SQ SCH (21:26)
[2021-08-27] MEDS ORDERED: ZOLPIDEM TARTRATE 5 MG TAB PO PRN (23:38)
[2021-08-28] MEDS: LORazepam 0.5 MG TAB PO PRN ×2 (00:30→07:02)
[2021-08-28] MEDS: PROPRANOLOL HCL 20 MG TAB PO PRN ×2 (07:28→13:54)
[2021-08-28] MEDS: risperiDONE 0.5 MG TABLET PO SCH (11:30)
--- NOTE | 2021-08-28 12:16 | Psychiatric Progress Note ---
Date of Service August 28, 2021 Impression / Recommendations Impression This is a 36 yo man admitted medically following an intentional overdose suicide attempt now medically stable. Diagnostically consistent with depressive episode of BPAD in the context of recent stressors including worsening mood with poor medication response and financial strain. Acute risk of self-harm remains elevated and high given suicide attempt requiring medical admission, major depressive symptoms, social isolation, access to lethal means, hopelessness, high psychic distress and ongoing ambivalence about being alive. Given elevated risk of harm to self they meet criteria for inpatient psychiatric care for diagnostic clarification, safety/stabilization, development of additional coping skills, medication management and disposition/safety planning once medically stable. He is voluntary for treatment but if he changes his mind should be evaluated as he would very likely meet criteria for 302 status based on severity of suicide attempt and ongoing modifiable risk factors. 08/28/21: David is medically stable but from a psychiatric standpoint he remains high acute risk of self-harm given recent suicide attempt with lethal potential, ongoing SI and severe depression and anxiety. Stopped risperidone and started zyprexa and planned to start ativan taper though he was then accepted at [facility] this afternoon for ECT. Insurance pre-cert was done and approved for both inpt and ECT. David signed 201. All information faxed to [facility]. He will be transported this evening via secure transport. Discussed with hospitalist who will not prescribe any medications since his medications will likely be adjusted and changed during his inpatient psych treatment. -Continue 1-on-1 for high risk of harm to self -Do not discharge or allow to leave AMA, contact psych liason if this occurs as he would meet 302 criteria but currently voluntary for inpt psych treatment -Zyprexa 5mg qhs for mood and sleep -Transfer to [facility] this evening for inpt hospitalization and ECT (1) Bipolar disorder with severe depression: (2) Antipsychotic-induced akathisia: (3) Depression: (4) Suicidal overdose: (5) Intentional overdose: (6) Transaminitis: (7) Polysubstance overdose: see above Risk Factors Assessment Do You Have Access To A Gun?: Yes (his father has guns in the home) Interval History Identifying Information 36 yo man living in [facility] with his parents with history of depression, anxiety and BPAD who was admitted medically following suicide attempt via polypharmacy overdose. Psychiatry was consulted for risk assessment and disposition recommendations. Chief Complaint "I feel awful today, the anxiety is really bad". Review of Systems Notes insomnia, stable appetite but with some nausea he attributes to anxiety today Subjective Subjective Patient was seen & assessed and interval progress reviewed. The trazodone did not help with insomnia so overnight hospitalist reached out and I recommended addition of Ambien which David found somewhat helpful. He remains depressed and anxiety but hopeful about possibility for ECT. Reviewed plan to taper ativan as akathisia has improved and will interfere with ECT process. Discussed plan to stop risperidone as he would prefer and more sedating medication that can also help with mood and anxiety and switch instead to zyprexa which we had discussed yesterday. Physical Exam Psychiatric Orientation: alert and oriented x 3 Apperance: appropriately dressed and appropriately groomed Eye Contact: good eye contact Motor Behavior: no abnormal motor movements Speech: normal rate/rhythm/volume of speech Affect: + depressed affect and + flat affect Mood: + depressed mood and + anxious mood Thought Process: goal directed thought process Thought Content: reality based without delusions Suicidal Thoughts: denies suicidal plan and denies suicidal intent; + reports suicidal thoughts Homicidal Thoughts: denies homicidal thoughts Hallucinations: no auditory hallucinations and no visual hallucinations Cognition: recent memory grossly intact, remote memory grossly intact, attention grossly intact and language grossly intact Estimated Intelligence: consistent with education level Insight: + fair insight Judgement: + fair judgement Vital Signs (Past 24 Hours) Last Vital Signs Temp 36.6 C 08/28/21 06:56 Pulse 83 08/28/21 06:56 Resp 18 08/28/21 06:56 BP 131/90 08/28/21 06:56 Pulse Ox 96 08/28/21 06:56 Results & Data ([facility]) Laboratory Results Laboratory Results - last 24 hr 08/28/21 Unknown SARS-CoV-2, RNA, NAAT Pending Current Inpatient Medications Current Inpatient Medications: Current Inpatient Medications Bismuth Subsalicylate (Bismuth Subsalicylate 262 Mg Chew) 1 tab PO Q4H PRN PRN Reason: Diarrhea Stop: 09/17/21 22:06 Last Admin: 08/26/21 18:34 Dose: 1 tab Documented by: Enoxaparin Sodium (Enoxaparin Inj 40 Mg/0.4 Ml Syr) 40 mg SQ Q24H LACY Stop: 09/15/21 21:59 Last Admin: 08/27/21 21:26 Dose: 40 mg Documented by: Lorazepam (Lorazepam 0.5 Mg Tab) 0.5 mg PO Q4 PRN PRN Reason: Anxiety Stop: 09/26/21 15:10 Last Admin: 08/28/21 07:02 Dose: 0.5 mg Documented by: Oxycodone HCl (Oxycodone Hcl Ir 5 Mg Tab (Immediate Release)) 5 mg PO Q4H PRN PRN Reason: Pain Stop: 09/06/21 20:07 Propranolol HCl (Propranolol Hcl 20 Mg Tab) 20 mg PO TID PRN PRN Reason: anxiety Stop: 09/20/21 12:15 Last Admin: 08/28/21 07:28 Dose: 20 mg Documented by: Risperidone (Risperidone 0.5 Mg Tablet) 0.25 mg PO BID LACY Stop: 09/26/21 20:59 Last Admin: 08/28/21 11:30 Dose: Not Given Documented by: Trazodone HCl (Trazodone Hcl 50 Mg Tab) 50 mg PO HS LACY Stop: 09/26/21 20:59 Last Admin: 08/27/21 20:15 Dose: 50 mg Documented by: Zolpidem Tartrate (Zolpidem Tartrate 5 Mg Tab) 5 mg PO HS PRN PRN Reason: Sleep Stop: 09/26/21 23:37 Last Admin: 08/28/21 01:03 Dose: 5 mg Documented by: (1) Suicidal overdose Encounter type: initial encounter Qualified Code(s): T50.902A - Poisoning by unspecified drugs, medicaments and biological substances, intentional self-harm, initial encounter (2) Intentional overdose Encounter type: initial encounter Qualified Code(s): T50.902A - Poisoning by unspecified drugs, medicaments and biological substances, intentional self-harm, initial encounter
--- NOTE | 2021-08-28 13:43 | Discharge Summary ---
Date of Service August 28, 2021 Admission HPI Per Admitting Provider This is a 36-year-old male who has significant past medical history of depression, anxiety and anuja who presents to ED after sustaining what appears to be an intentional overdose on multiple prescription medications prior to arrival. Patient's mother and father are at bedside and provides most of history. History also obtained from prehospital personnel and ED provider. Patient has been living with his parents for the past 2 years, since COVID hit. They states he has suffered with depression and anxiety for several years dating back to when he lost his job back in [place] about 6 years ago. About 10 days ago he recently moved out to [place] to start a summer job. He called his parents stating that he was not doing well from a depression standpoint and therefore they went out to [place] to see him. Apparently he was hospitalized at [facility] for 2 days as he admitted himself due to worsening depression. According to report patient signed him out AMA and family brought him back here. This morning patient was scheduled to see a psychiatrist. His father noted him to be sleeping. He states, "he never sleeps so I did let him sleep for a while, but I now know that was the wrong decision." Somewhere between 10 AM and 12 PM patient is thought to have taken multiple prescription prescription medications as they were found at bedside. It is unclear quantity and specifics but the bottles noted were Latuda, clonazepam, tamsulosin, hydroxyzine, Seroquel and lorazepam. Patient was unresponsive and was intubated in the field. In ED he remained hemodynamically stable, sedated and on mechanical ventilation. Drug tox screen was negative, salicylates less than 3.0, acetaminophen high at 159. His benzodiazepine screen is still pending. Poison control was contacted. Admission Exam Per Admitting Provider Constitutional: WD/WN, vitals as above, NAD, lying in bed, unresponsive, intubated Head: Normocephalic, Atraumatic Eyes: PERRL, conjunctivae normal, anicteric sclerae ENMT: external ear and nose normal, +ET Tube Neck: trachea midline, normal visual inspection Respiratory: normal respiratory effort, B/L rhonchi noted R> L, + Intubated with mechanical ventilation Cardiovascular: bradycardiac rate, regular rhythm, no edema Vessels: no JVD or carotid bruit Chest: normal inspection of chest Abdomen: normal bowel sounds, soft, nontender, no hepatosplenomegaly Musculoskeletal: no cyanosis or clubbing, unable to assess given unresponsive Skin: no rashes, warm and dry normal turgor Neurologic: unable to assess due to unresponsive Psychiatric: unable to assess due to unresponsive : +reynoso cath with yellow urine Principal Diagnosis Polysubstance overdose with suicidal intention, Bipolar disorder with severe depression, Antipsychotic-induced akathisia Discharge Exam General: Sitting comfortably in bed, not in distress, on room air HEENT: EOMI, RENZO, MMM Chest: Clear breath sounds bilaterally, no wheezes or crackles CVS: Regular rate and rhythm, normal heart sounds, no murmur Abdomen: Soft, non tender, not distended, normal bowel sounds Neuro: Awake, alert, oriented, conversing well, non focal Extremities: No cyanosis, clubbing or edema Psych: Calm, cooperative, low mood, constantly fidgeting Discharge Data Allergies Allergy/AdvReac Type Severity Reaction Status Date / Time No Known Drug Allergies AdvReac Verified 09/06/20 11:33 Consultations 08/16/21 18:18 ED Decision to Admit Stat 08/16/21 18:24 Consult Hardwood Floor Sander Routine 08/16/21 19:43 Consult Psychiatry Routine 08/18/21 14:42 Consult Gastroenterology Routine Ordered Studies 08/16/21 16:53 CT head/brain wo con Stat 08/18/21 15:14 US abdomen limited Urgent US duplex portal hepatic veins Urgent 08/19/21 22:56 US arterial duplex LE BI Urgent US venous doppler LE BI Urgent Laboratory Results WBC 10.47 K/uL (4.8-10.8) 08/25/21 05:20 RBC 4.88 M/uL (4.7-6.1) 08/25/21 05:20 Hgb 14.0 g/dL (14.0-18.0) 08/25/21 05:20 POC Hgb 12.2 g/dl (14.0-18.0) L 08/17/21 03:59 Hct 41.2 % (42-52) L 08/25/21 05:20 POC Hct 36 % (42-52) L 08/17/21 03:59 MCV 84.4 fL (80-100) 08/25/21 05:20 MCH 28.7 pg (25-34) 08/25/21 05:20 MCHC 34.0 g/dL (32-36) 08/25/21 05:20 RDW Std Deviation 42.4 fL (36.4-46.3) 08/25/21 05:20 RDW Coeff of Esthela 14.1 % (11.5-14.5) 08/25/21 05:20 Plt Count 401 K/uL (130-400) H 08/25/21 05:20 MPV 10.0 fL (7.4-10.4) 08/25/21 05:20 Immature Gran % (Auto) 0.4 % 08/19/21 05:15 Neut % (Auto) 74.6 % 08/19/21 05:15 Lymph % (Auto) 16.8 % 08/19/21 05:15 Tompkins % (Auto) 5.2 % 08/19/21 05:15 Eos % (Auto) 2.8 % 08/19/21 05:15 Baso % (Auto) 0.2 % 08/19/21 05:15 Neut # (Auto) 6.35 K/uL (1.4-6.5) 08/19/21 05:15 Lymph # (Auto) 1.43 K/uL (1.2-3.4) 08/19/21 05:15 [place]kins # (Auto) 0.44 K/uL (0.11-0.59) 08/19/21 05:15 Eos # (Auto) 0.24 K/uL (0-0.5) 08/19/21 05:15 Baso # (Auto) 0.02 K/uL (0-0.2) 08/19/21 05:15 Immature Gran # (Auto) 0.03 K/uL (0.00-0.02) H 08/19/21 05:15 PT 10.7 Seconds (9.0-12.0) 08/24/21 08:27 INR 1.0 (0.9-1.1) 08/24/21 08:27 Sample Site R Radial 08/17/21 03:59 POC pH 7.41 (7.35-7.45) 08/17/21 03:59 POC pCO2 34 mmHg (35-46) L 08/17/21 03:59 POC pO2 137 mmHg (80-95) H 08/17/21 03:59 POC HCO3 22 josé/L (19-24) 08/17/21 03:59 POC Total CO2 23 mmol/L (24-31) L 08/17/21 03:59 POC Base Excess -3.0 josé/L (-9-1.8) 08/17/21 03:59 ABG pH (Temp Correct) 7.413 (7.35-7.45) 08/17/21 03:59 ABG pCO2 (Temp Corrct 34 mmHg (35-46) L 08/17/21 03:59 POC ABG pO2 at Pt Temp 136 08/17/21 03:59 POC ABG O2 Sat 99.0 % (90-95) H 08/17/21 03:59 Neil Test Pass 08/17/21 03:59 VBG pH 7.47 (7.36-7.41) H 08/18/21 22:50 VBG pCO2 33 mmHg (38-50) L 08/18/21 22:50 VBG pO2 39 mmHg 08/18/21 22:50 VBG HCO3 24 mmol/L 08/18/21 22:50 VBG O2 Saturation 76.3 % 08/18/21 22:50 VBG Base Excess 0.9 mEq/L 08/18/21 22:50 Barometric Pressure 731.0 mm/Hg 08/18/21 22:50 O2 Delivery Device Ventilator 08/17/21 03:59 POC O2 Rate 16 08/17/21 03:59 POC FiO2 30 % 08/17/21 03:59 Tidal Volume 440 08/17/21 03:59 PEEP 5 08/17/21 03:59 POC Sodium 141 mmol/L (135-144) 08/17/21 03:59 Sodium 141 mmol/L (136-145) 08/26/21 05:16 POC Potassium 4.0 mmol/L (3.3-5.0) 08/17/21 03:59 Potassium 3.5 mmol/L (3.5-5.1) 08/26/21 05:16 Chloride 108 mmol/L (98-107) H 08/26/21 05:16 Carbon Dioxide 24 mmol/L (21-32) 08/26/21 05:16 Anion Gap 9 (3-11) 08/26/21 05:16 BUN 23 mg/dl (6-23) 08/26/21 05:16 Creatinine 0.81 mg/dl (0.6-1.4) 08/26/21 05:16 Est Cr Clr Drug Dosing 117.9 ml/min 08/26/21 05:16 Est GFR ( Amer) 132.5 ml/min 08/26/21 05:16 Est GFR (Non-Af Amer) 114.3 ml/min 08/26/21 05:16 BUN/Creatinine Ratio 28.4 (10-20) H 08/26/21 05:16 Glucose 86 mg/dl (70-99(Fasting)) 08/26/21 05:16 POC Glucose 100 mg/dl (70-99) H 08/20/21 08:30 Calcium 9.1 mg/dl (8.5-10.1) 08/26/21 05:16 Phosphorus 3.6 mg/dl (2.5-4.9) 08/26/21 05:16 Magnesium 2.2 mg/dl (1.7-2.4) 08/26/21 05:16 Total Bilirubin 0.4 mg/dl (0.2-1.0) 08/26/21 05:16 Direct Bilirubin 0.1 mg/dl (0-0.2) 08/26/21 05:16 AST 15 U/L (13-39) 08/26/21 05:16 ALT 182 U/L (7-52) H 08/26/21 05:16 Alkaline Phosphatase 38 U/L (34-104) 08/26/21 05:16 Ammonia 35.0 umol/L (18-72) 08/18/21 22:50 Total Creatine Kinase 897 U/L (30-223) H 08/20/21 07:11 Troponin I High Sens 22.7 pg/ml (0-20) H 08/17/21 11:58 Total Protein 6.4 gm/dl (6.0-8.3) 08/26/21 05:16 Albumin 3.9 gm/dl (3.4-5.0) 08/26/21 05:16 Globulin 2.1 gm/dl (2.5-4.0) L 08/20/21 05:11 Albumin/Globulin Ratio 1.6 (0.9-2) 08/20/21 05:11 Lipase 10 U/L (11-82) L 08/16/21 17:17 Procalcitonin 0.10 ng/ml (0-0.5) 08/24/21 09:58 Urine Color Yellow 08/16/21 17:27 Urine Appearance Cloudy (Clear) A 08/16/21 17:27 Urine pH 6.0 (4.5-7.5) 08/16/21 17:27 Ur Specific [place] 1.024 (1.000-1.030) 08/16/21 17:27 Urine Protein Trace (Negative) H 08/16/21 17:27 Urine Glucose (UA) Negative (Negative) 08/16/21 17: Urine Ketones 2+ (Negative) H 08/16/21 17: Urine Blood Negative (Negative) 08/16/21 17: Urine Nitrite Negative (Negative) 08/16/21 17: Urine Bilirubin Negative (Negative) 08/16/21 17: Urine Urobilinogen Negative (Negative) 08/16/21 17:27 Ur Leukocyte Esterase Negative (Negative) 08/16/21 17:27 Urine WBC (Auto) 1-5 /hpf (0-5) 08/16/21 17:27 Urine RBC (Auto) 0-4 /hpf (0-4) 08/16/21 17: U Hyaline Cast (Auto) 1-5 /lpf (0-5) 08/16/21 17: U Epithel Cells (Auto) 10-20 /lpf (0-5) H 08/16/21 17:27 Urine Bacteria (Auto) Negative (Negative) 08/16/21 17:27 Nasal Screen MRSA (PCR) Negative (Negative) 08/16/21 Unknown Stl C. diff Tox B Gene Negative Cdiff Gene (Neg) 08/27/21 03:05 Salicylates < 3.0 mg/dl (3.0-30) L 08/16/21 17:17 Urine Opiates Screen Neg (Neg) 08/16/21 17:27 Ur Methadone, Qual Neg (Neg) 08/16/21 17:27 Acetaminophen < 3 ug/ml (10-30) L 08/19/21 05:15 Urine Barbiturates Neg (Neg) 08/16/21 17:27 Ur Phencyclidine (PCP) Neg (Neg) 08/16/21 17:27 U Amphetamin/Meth Scrn Neg (Neg) 08/16/21 17:27 MDMA (Ecstasy) Screen Neg (Neg) 08/16/21 17:27 U OH-Alprazolam Confrm NEGATIVE ng/mL (<25) 08/16/21 17:27 U Benzodiazepines Scrn Pos (Neg) H 08/16/21 17:27 7-Amino Clonazepam 371 ng/mL (<25) H 08/16/21 17:27 Ur Nordiazepam Confirm NEGATIVE ng/mL (<50) 08/16/21 17:27 U OH-ethylflurazepam NEGATIVE ng/mL (<50) 08/16/21 17:27 U Lorazepam Cnf GC/MS 591 ng/mL (<50) H 08/16/21 17:27 U Oxazepam Confm GC/MS NEGATIVE ng/mL (<50) 08/16/21 17:27 Ur Temazepam Confirm NEGATIVE ng/mL (<50) 08/16/21 17:27 U OH-Triazolam Confirm NEGATIVE ng/mL (<50) 08/16/21 17:27 U OH-Midazolam Confirm NEGATIVE ng/mL (<50) 08/16/21 17:27 [place] < 0.1 mmol/L (0.6-1.2) L 08/16/21 17:17 Ur Cocaine Metabolite Neg (Neg) 08/16/21 17:27 U Marijuana (THC) Screen Neg (Neg) 08/16/21 17:27 Drug Screen Comment SEE NOTE 08/16/21 17:27 Ethyl Alcohol mg/dL < 10.0 mg/dl (<10.0) 08/16/21 17:29 CMV IgM Ab <30.00 AU/mL 08/19/21 14:48 CMV IgG Ab/TORCH <0.60 U/mL 08/19/21 14:48 EBV Capsid Ag IgG Ab >750.00 U/mL H 08/20/21 07:14 EBV Capsid Ag IgM Ab <36.00 U/mL 08/20/21 07:14 EBV EA Restrict+Diffuse <9.00 U/mL 08/20/21 07:14 EBV Nuclear Antigen Ab >600.00 U/mL H 08/20/21 07:14 EBV Antibody Interp SEE NOTE 08/20/21 07:14 Hepatitis A IgM Ab NON-REACTIVE (NON-REACTIVE) 08/20/21 23:54 Hep Bs Antigen NON-REACTIVE (NON-REACTIVE) 08/20/21 23:54 Hep Bs Ag Confirmation TNP 08/20/21 23:54 Hep B Core IgM Ab NON-REACTIVE (NON-REACTIVE) 08/20/21 23:54 Hepatitis C Ab (EIA) NON-REACTIVE (NON-REACTIVE) 08/20/21 23:54 Hep C Ab Signal/Cutoff 0.01 (<1.00) 08/20/21 23:54 SARS-CoV-2, RNA, NAAT NEGATIVE (NEGATIVE) 08/28/[address] 08/16/21 16:[address] DOSE: 537.48 mGy.cm HISTORY: Overdose. Intubation. TECHNIQUE: Multiaxial CT images of the head were performed without the use of intravenous contrast. Automated exposure control was utilized for this study. A dose lowering technique was utilized adhering to the principles of ALARA. Comparison: None. Findings: The paranasal sinuses and mastoid air cells are clear. The calvarium and skull base are intact. The ventricles and sulci are within normal limits. There is no mass, hematoma, midline shift, or acute infarct. Impression: No acute intracranial abnormality. ACT 112: Negative or not required by law. Electronically signed by: Devan Rivers M.D. 08/16/2021 5:56 PM Chest X-Ray 08/17/21 07:00 XR chest 1V portable CLINICAL HISTORY: Follow-up patchy bibasilar densities. COMPARISON STUDY: 08/16/2021 TECHNIQUE: 1 view of the chest FINDINGS: Single frontal view of the chest demonstrates the cardiomediastinal silhouette to be within normal limits. Tubes and catheters are now in anatomic position. Compared to previous examination, there is increased expansion of lungs with resolution of bibasilar atelectasis. No confluent alveolar opacities are identified. There is no evidence for pleural effusion. There is no evidence for vascular congestion. There is no acute osseous pathology. IMPRESSION: 1. Increased expansion of lungs with resolution of bibasilar atelectasis. 2. No acute chest disease. 3. Tubes and catheters in anatomic position. ACT 112: Negative or not required by law. Electronically signed by: Eloy Munguia M.D. 08/17/2021 7:57 AM KUB X-Ray 08/17/21 14:38 KUB HISTORY: Overdose. eval for retained pills COMPARISON: None. FINDINGS: The bowel gas pattern is unremarkable. There are no dilated loops of small bowel to suggest an obstruction. No renal calculi. No ureteral calculi. No pneumoperitoneum or pneumatosis. A nasogastric tube terminates in the distal stomach. A rectal catheter is in place. No radiopaque foreign bodies to suggest ingested pills. IMPRESSION: 1. No radiopaque foreign bodies to suggest ingested pills. 2. Satisfactory support line placement. ACT 112: Negative or not required by law. Electronically signed by: Devan Rivers M.D. 08/17/2021 3:18 PM Abdomen Ultrasound 08/18/21 15:14 ABDOMINAL ULTRASOUND, RIGHT UPPER QUADRANT HISTORY: transaminitis. COMPARISON: None. FINDINGS: Pancreas: The pancreas demonstrates a normal echotexture. Liver: Unremarkable. Trace fluid identified at Morison's pouch. Gallbladder: No gallbladder wall thickening. No gallstones. Negative sonographic Clifton sign. CBD: 3 mm. Right kidney: No hydronephrosis. IMPRESSION: 1. Normal gallbladder. No gallstones. 2. Trace fluid identified in Morison's pouch. This is of doubtful clinical significance. ACT 112: Negative or not required by law. Electronically signed by: Devan Rivers M.D. 08/18/2021 5:39 PM Portal Vein US 08/18/21 15:14 US duplex portal hepatic veins CLINICAL HISTORY: eval for thrombosis. Transaminitis. COMPARISON STUDY: None FINDINGS: The hepatic, portal, and splenic veins are patent and demonstrate normal direction of flow. The hepatic artery is also patent. IMPRESSION: No evidence for portal vein thrombosis. ACT 112: Negative or not required by law. Electronically signed by: Devan Rivers M.D. 08/18/2021 5:46 PM Duplex Scan Lower Extremity Artery 08/19/21 22:56 US arterial duplex LE BI CLINICAL HISTORY: severe lower ext pain TECHNIQUE: Real-time grayscale and color and spectral Doppler ultrasound imaging of the bilateral lower extremity arteries was performed. Measurements calculated based on NASCET criteria. COMPARISON: Comparison is made to bilateral venous Doppler 08/19/2021 FINDINGS: RIGHT: Common femoral artery: Triphasic waveforms. Peak systolic velocity (PSV) 143 cm/s. Deep femoral artery: Triphasic waveforms. PSV 93 cm/s. Superficial femoral artery: Triphasic waveforms. PSV 145 cm/s. Popliteal artery: Triphasic waveforms. PSV 80 cm/s. Anterior tibial artery: Triphasic waveforms. PSV 47 cm/s. Posterior tibial artery: Triphasic waveforms. PSV 81 cm/s. Peroneal artery: Triphasic waveforms. PSV 94 cm/s. Dorsalis pedis: Triphasic waveforms. PSV 86 cm/s. LEFT: Common femoral artery: Triphasic waveforms. Peak systolic velocity (PSV) 94 cm/s. Deep femoral artery: Triphasic waveforms. PSV 101 cm/s. Superficial femoral artery: Triphasic waveforms. PSV 149 cm/s. Popliteal artery: Triphasic waveforms. PSV 89 cm/s. Anterior tibial artery: Triphasic waveforms. PSV 84 cm/s. Posterior tibial artery: Triphasic waveforms. PSV 118 cm/s. Peroneal artery: Triphasic waveforms. PSV 67 cm/s. Dorsalis pedis: Triphasic waveforms. PSV 111 cm/s. Minimal atherosclerotic plaque is seen. Reference ranges: Normal Ankle/Brachial Index (LESTER) 1.0-1.4; 0.91-0.99 borderline; < or = 0.9 abnormal (0.7-0.89 mild, 0.51-0.69 moderate, < or = 0.5 severe peripheral arterial disease). Normal Toe/Brachial Index (TBI) > or = 0.6; < 0.6 abnormal (0.34-0.59 mild, 0.12-0.34 moderate, < or = 0.11 severe peripheral arterial disease). IMPRESSION: No hemodynamically significant stenosis. ACT 112: Negative or not required by law. Electronically signed by: Drake Montemayor M.D. 08/20/2021 10:31 AM Venous Doppler Study 08/19/21 22:56 US venous doppler LE CLINICAL HISTORY: lower ext pain TECHNIQUE: Bilateral lower extremity real-time compression venous ultrasound with Color Doppler imaging. Utilizing real-time ultrasonic imaging multiple real time high-resolution ultrasonic images with compression and noncompression maneuvers of the deep venous system in addition to color doppler imaging were performed from the common femoral vein through the proximal calf veins. COMPARISON: None available at the time of this dictation. FINDINGS: Currently there is normal compressibility of the deep venous system from the common femoral vein through the proximal calf veins. No current evidence of acute thrombosis is identified. Impression: No evidence of deep venous thrombus. ACT 112: Negative or not required by law. Electronically signed by: Drake Montemayor M.D. 08/20/2021 8:44 AM Hospital Course (1) Bipolar disorder with severe depression: (2) Antipsychotic-induced akathisia: (3) Acute respiratory failure: (4) Intentional overdose: (5) Suicidal overdose: (6) Acetaminophen overdose: (7) Transaminitis: (8) AMS (altered mental status): (9) Elevated CK: 36-year-old male who has significant past medical history of depression, anxiety and anuja who presents to ED 08/16 after sustaining what appears to be an intentional overdose on multiple prescription medications with suicide attempt prior to arrival. He was intubated at the field and managed in the ICU with mechanical ventilation. Poison control was contacted. His tylenol level was high and he received NAC. His transaminases have significantly improved, almost normalized. His labs improved. Mentation improved. He was extubated on 08/17 on room air. At bedside exam 08/18, he was AAOx3, reported that he emptied half total of 1 months prescription of Seroquel, took 8 mg of clonazepam and 12 mg Ativan, 2 may be more than 30 tablets of Tylenol/ibuprofen/baby aspirin each prior to arrival. He remained stable and was transferred out of ICU. He has remained stable since then. Psychiatry was actively involved. He persistently has low mood and was on 1:1 throughout. Multiple antipsychotics were tried but he did not tolerated. He had also failed to improve with OP medications. Per psychiatry note 08/27 " David is medically stable but from a psychiatric standpoint he remains high acute risk of self-harm given recent suicide attempt with lethal potential, ongoing SI and severe depression and anxiety. He has been trialed on multiple psychiatric medications in the past including escitalopram (at which point he became activated with symptoms of anuja and then BPAD diagnosis was made) and since that time multiple mood stabilizers (lithium, lamictal) and antipsychotics (latuda, Vraylar, Seroquel) with either intolerable side effects (most often akathisia) limiting their use or ineffectiveness. He also tried TMS with Dr. Arevalo but it resulted in activation.At this point ECT is felt to be the most appropriate treatment option, and is my recommendation and his outpatient psychiatrist is in support of this, as he has ongoing severe depression, had a suicide attempt due to the severity of his symptoms, has had multiple trials of medication which were ineffective or not tolerated, he has no contraindications to ECT treatment, desires ECT and this is the treatment most likely to help his symptoms improve quickly and reduce his acute and chronic risk of self-harm".He is hence being discharged to inpatient [facility] facility with ECT services and this is his preference too. Discussed with Dr Craig from psychiatry prior to discharge. He remains comfortable and medically stable. Conditions managed during the hospital stay: # Bipolar disorder with severe depression, not in remission- started on zyprexa hs, ativan prn- being discharged to inpatient psych facility with ECT facilities for further management. #. Antipsychotic-induced akathisia- No need for propranolol at discharge per psychiatry. Further management per psychiatry #. Acute toxic encephalopathy due to polypharmacy overdose- resolved. Admitting CT Head w/ no Ac. findings. #. Polypharmacy overdose with suicidal intention- resolved. Psychiatry on board and actively involved throughout, can't leave AMA. On 1:1 throughout. Currently denies suicidal ideation #. Acetaminophen overdose- resolved. S/p NAC. Tylenol level now negative. #. Acute respiratory failure: Resolved. secondary to intentional overdose, was intubated at the field 08/16 for airway protection, extubated 08/17 and on room air since then #. Transaminitis: AST elevation resolved, ALT downtrending nicely, INR normal. Hepatitis panel negative. Can check LFT as OP in 1-2 weeks to ensure resolution. #. Prolonged QTC- resolved. QTc now 381 per last EKG Total Time Total Time Spent Total Time Spent (In Minutes): 40 Discharge Plan Discharge Items Patient Disposition: Transfer Behavioral Health Fac Reason For Visit: POLYPHARMACY OVERDOSE Discharge Diagnosis: Polysubstance overdose with suicidal intention, Bipolar disorder with severe depression, Antipsychotic-induced akathisia Activity: Resume your previous activity Non-emergency contact: Primary Care Provider Call non-emergency contact if: you have any medication questions and your symptoms worsen Follow-up/Referrals: Yanely Navarrete MD [Primary Care Provider] - Diet: Regular Addtl Attending Provider Instructions: Continue zyprexa at bedtime per psychiatry. Recommend weaning down on ativan Further management per the psychiatry team at the new facility Pending Studies at Discharge: No Stand-Alone Forms: My [facility] Medications and DC Order Prescriptions: New lorazepam 0.5 mg Tablet 0.5 mg PO Q4 PRNQty: 0 RF: 0 olanzapine 5 mg Tablet 5 mg PO HS Qty: 0 RF: 0 bismuth subsalicylate [Stomach Relief] 262 mg Tablet,Chewable 1 tab PO BID PRNQty: 0 RF: 0 Discontinued clonazepam 1 mg Tablet 1 mg PO DIRECTED RF: 0 quetiapine 100 mg tablet 100 - 150 mg PO DIRECTED RF: 0 tamsulosin 0.4 mg Capsule 0.4 mg PO DAILY RF: 0 hydroxyzine pamoate 25 mg Capsule 25 mg PO DIRECTED RF: 0 Latuda 40 mg Tablet 40 mg PO DAILY RF: 0 Discharge Orders: Discharge Order (Routine); Ordered 08/28/21 Ordered By: Sergey Smith Admission Data Admit Date/Time: 08/16/21 18:23 Attending Provider: Sergey Smith Admit Provider: Acosta Posey Primary Care Provider: Yanely Navarrete Other Providers: Acosta Posey ; Sundar Whittington ; Eunice Craig ; Marjorie Cordon ; Siri Teixeira ; Hellen Ruano ; Deana Mcdonald ; Capo Sams ; Sarah Richmond ; Garret Atkins ; Parth Peralta ; Anu Mullins ; Maykel Avina ; Wendy Rod ; Puja Garcia ; Philly Guzman ; Bernarda Hahn ; Elayne Giordano Supervising Physician Co-Signing Physician Notes Attending attestation I have seen, examined this patient, and agree with the findings and above by our mid-level provider VASUQEZ Watkins, with the following additions: - LFT's stable, continue mucomyst - No signs of ALI or RAVEN - Follow serologies
[2021-08-28] MEDS ORDERED: OLANZapine 5 MG TABLET PO SCH (21:00)
== END 2021-08-28 16:58 | DRG 917 ==
LOC: ED 17:08 → SUATTDRO 18:23 → 1E 18:23 → 3N 08-23 20:34